=== PATIENT | female | born 1955 | race Caucasian/White ===

== ENCOUNTER 2021-04-07 02:16 | Emergency (ER) | payer MEDICARE, MEDICAID, SELFPAY ==
--- NOTE | ~2021-04-07 | XR_ITS ---
EXAMINATION: XR CHEST CLINICAL INFORMATION: Shortness of breath. Chest pain. COMPARISON: 07/12/2016 TECHNIQUE: 2 views of the chest were obtained. FINDINGS: The patient is rotated to the right. Lung hyperexpansion. No consolidation, edema, or effusion. No pneumothorax. The cardiomediastinal silhouette is within normal limits. No acute osseous abnormality. XR/XR chest 2V IMPRESSION: Hyperexpanded, clear lungs.
[2021-04-07 02:24] VITALS: BP 139/65; BP 176/84; PULSE 80; PULSE 92; RESP 15; TEMP 36; O2SAT 98; BMI 17.2
--- NOTE | 2021-04-07 02:42 | ED_ITS ---
HPI - Anxiety General Chief Complaint: Anxiety Stated Complaint: anxiety Time Seen by Provider: 04/07/21 02:41 Source: patient Mode of arrival: EMS History of Present Illness HPI narrative: 65-year-old female who presents via EMS with complaints of chest tightness and shortness of breath for 1 week with associated nausea and 2 episodes of ?acidy? vomiting with chills denies any fevers, diarrhea, urinary pain/burning/frequency. Related Data Allergies Allergy/AdvReac Type Severity Reaction Status Date / Time No Known Allergies Allergy Unverified 07/31/20 14:46 [No Known Allergies*] Review of Systems Review of Systems: Pertinent positives and negatives as stated in HPI 10 point review of systems is otherwise negative. [facility] Past Medical History Source: nursing notes reviewed Medical History Anxiety COPD (chronic obstructive pulmonary disease) Surgical History No history of previous surgery Social History Social History Alcohol intake: never Smoking Status: Current every day smoker Use of substances other than those prescribed or required for medical reasons: No Advance Directives: No Advance Directives Information Provided: No Physical Exam Vital Signs: Vital Signs: Last Vital Signs Temp 96.8 F 04/07/21 02:24 Pulse 81 04/07/21 06:00 Resp 15 04/07/21 06:00 BP 133/65 04/07/21 06:00 Pulse Ox 98 04/07/21 06:00 Body Mass Index 17.2 VITAL SIGNS: Reviewed. GENERAL: Cachectic, chronically ill, in no acute distress. HEAD: Normocephalic/atraumatic, EYES: PERRLA, EOMI EARS: Ext canals without abnormality NOSE: Nares patent bilateral OROPHARYNX: no oral lesions noted, posterior pharynx clear NECK: Supple, no adenopathy LUNGS: Normal breath sounds. No adventitious sounds or accessory muscle use. SpO2<98> CARDIOVASCULAR: Regular rate and rhythm without noted murmurs, no JVD or lower extremity edema. ABDOMEN: Soft, non-tender, non-distended with bowel sounds. NEUROLOGIC: Alert and oriented x 4. Strength and sensation to light touch were grossly intact x 4. Course Course Course Narrative: This is a 65-year-old female with history and clinical presentation suggestive of costochondritis, anxiety. On review of all investigations there are no acute findings stable COPD without evidence exacerbation. Patient was given all results and findings and discharged to home with follow-up to her primary care provider. MDM - Anxiety Lab Data Result diagrams: 04/07/21 06:13 04/07/21 06:13 Labs: Lab Results 04/07/21 04/07/21 04/07/21 Range/Units 06:13 06:13 06:13 WBC 6.6 (4.8-10.8) X10*3/uL RBC 4.71 (4.20-5.50) X10*6/uL Hgb 13.7 (12.0-16.0) g/dl Hct 40.8 (37-47) % MCV 86.6 (80-98) fL MCH 29.1 (27.0-33.0) pg MCHC 33.6 (31.0-35.0) g/dl RDW 12.0 (11.0-16.0) % Plt Count 229 (160-400) X10*3/uL MPV 10.4 (9.4-12.3) fL Immature Gran % (Auto) 0.5 H (0.0-0.4) % Neut % (Auto) 81.3 H (45-73) % Lymph % (Auto) 13.4 L (20-40) % [place] % (Auto) 4.1 (2-11) % Eos % (Auto) 0.2 (0-4) % Baso % (Auto) 0.5 (0-2) % Lymph # (Auto) 0.9 L (1.2-4.9) X10*3/uL [place] # (Auto) 0.3 (0.1-1.2) X10*3/uL Eos # (Auto) 0.0 (0.0-0.4) X10*3/uL Baso # (Auto) 0.0 (0.0-0.2) X10*3/uL Abs Immat Gran (auto) 0.03 (0.00-0.03) X10*3/uL Absolute Neuts (auto) 5.3 (2.0-8.3) X10*3/uL Absolute Nucleated RBC 0.000 (0.0-0.012) X10*3/uL Nucleated RBC % (auto) 0.0 (0.0-0.2) /100WBC Sodium 136 (135-145) mmol/L Potassium 4.3 (3.3-5.1) mmol/L Chloride 102 (96-108) mmol/L Carbon Dioxide 25 (22-29) mmol/L Anion Gap 13 (12-20) BUN 12 (9-16) mg/dL Creatinine 0.73 (0.5-1.4) mg/dL Estim Creat Clear Calc 53.5 Estimated GFR > 60 Random Glucose 106 (60-115) mg/dL Calcium 9.6 (8.4-10.2) mg/dL Total Bilirubin 0.8 (0.0-1.0) mg/dL AST 11 (5-31) U/L ALT 9 (0-31) U/L Alkaline Phosphatase 78 (39-117) U/L Total Protein 6.5 (6.5-8.0) g/dL Albumin 4.2 (3.5-5.0) g/dL Urine Color Urine Appearance Urine pH (5.0-8.0) Ur Specific [place] (1.005-1.025) Urine Protein (NEG-TRACE) MG/DL Urine Glucose (UA) (NEG) MG/DL Urine Ketones (NEG) MG/DL Urine Blood (NEG) Urine Nitrite (NEG) Ur Leukocyte Esterase (NEG) Urine RBC (0) /HPF Urine WBC (0-4) /HPF Ur Squamous Epith Cells /LPF Amorphous Sediment /LPF Urine Bacteria /LPF Urine Opiates Screen (Not Detect) Ur Barbiturates Screen (Not Detect) Ur Phencyclidine Scrn (Not Detect) Ur Amphetamines Screen (Not Detect) U Benzodiazepines Scrn (Not Detect) Urine Cocaine Screen (Not Detect) U Marijuana (THC) Screen (Not Detect) Ethyl Alcohol < 10 mg/dL 04/07/21 04/07/21 Range/Units 06:35 06:35 WBC (4.8-10.8) X10*3/uL RBC (4.20-5.50) X10*6/uL Hgb (12.0-16.0) g/dl Hct (37-47) % MCV (80-98) fL MCH (27.0-33.0) pg MCHC (31.0-35.0) g/dl RDW (11.0-16.0) % Plt Count (160-400) X10*3/uL MPV (9.4-12.3) fL Immature Gran % (Auto) (0.0-0.4) % Neut % (Auto) (45-73) % Lymph % (Auto) (20-40) % [place] % (Auto) (2-11) % Eos % (Auto) (0-4) % Baso % (Auto) (0-2) % Lymph # (Auto) (1.2-4.9) X10*3/uL [place] # (Auto) (0.1-1.2) X10*3/uL Eos # (Auto) (0.0-0.4) X10*3/uL Baso # (Auto) (0.0-0.2) X10*3/uL Abs Immat Gran (auto) (0.00-0.03) X10*3/uL Absolute Neuts (auto) (2.0-8.3) X10*3/uL Absolute Nucleated RBC (0.0-0.012) X10*3/uL Nucleated RBC % (auto) (0.0-0.2) /100WBC Sodium (135-145) mmol/L Potassium (3.3-5.1) mmol/L Chloride (96-108) mmol/L Carbon Dioxide (22-29) mmol/L Anion Gap (12-20) BUN (9-16) mg/dL Creatinine (0.5-1.4) mg/dL Estim Creat Clear Calc Estimated GFR Random Glucose (60-115) mg/dL Calcium (8.4-10.2) mg/dL Total Bilirubin (0.0-1.0) mg/dL AST (5-31) U/L ALT (0-31) U/L Alkaline Phosphatase (39-117) U/L Total Protein (6.5-8.0) g/dL Albumin (3.5-5.0) g/dL Urine Color YELLOW Urine Appearance HAZY Urine pH 6.0 (5.0-8.0) Ur Specific [place] 1.010 (1.005-1.025) Urine Protein NEG (NEG-TRACE) MG/DL Urine Glucose (UA) NEG (NEG) MG/DL Urine Ketones 5 (NEG) MG/DL Urine Blood TRACE (NEG) Urine Nitrite NEG (NEG) Ur Leukocyte Esterase NEG (NEG) Urine RBC 0-2 (0) /HPF Urine WBC 0 (0-4) /HPF Ur Squamous Epith Cells 2+ /LPF Amorphous Sediment 2+ /LPF Urine Bacteria NONE /LPF Urine Opiates Screen POSITIVE H (Not Detect) Ur Barbiturates Screen Not Detected (Not Detect) Ur Phencyclidine Scrn Not Detected (Not Detect) Ur Amphetamines Screen Not Detected (Not Detect) U Benzodiazepines Scrn Not Detected (Not Detect) Urine Cocaine Screen Not Detected (Not Detect) U Marijuana (THC) Screen Not Detected (Not Detect) Ethyl Alcohol mg/dL Discharge Plan Discharge Clinical Impression: Anxiety reaction Patient Disposition: Home, Self-Care Instructions: Anxiety (ED) Additional Instructions: Please follow-up with your primary care provider in 2-3 days for re-evaluation. Return to the ER for any acute worsening of symptoms. Referrals: Physician,Unknown [Primary Care Provider] - 2 days
[2021-04-07 06:00] VITALS: BP 133/65; PULSE 81; RESP 15; O2SAT 98
[2021-04-07 06:17] LABS: MANUAL DIFF FLAG NO
[2021-04-07 06:20] LABS: Basophils Percent Auto 0.5 % (0-2); Eosinophils Percent Auto 0.2 % (0-4); Hematocrit 40.8 % (37-47); Hemoglobin 13.7 g/dl (12.0-16.0); Imm Gran Abs Auto 0.03 X10*3/uL (0.00-0.03); Imm Gran Pct Auto 0.5 % (0.0-0.4); Lymphocytes Absolute Auto 0.9 X10*3/uL (1.2-4.9); Lymphocytes Percent Auto 13.4 % (20-40); Mean Corpuscular HGB Conc 33.6 g/dl (31.0-35.0); Mean Corpuscular Hemoglobin 29.1 pg (27.0-33.0); Mean Corpuscular Volume 86.6 fL (80-98); Mean Platelet Volume 10.4 fL (9.4-12.3); Monocytes Absolute Auto 0.3 X10*3/uL (0.1-1.2); Monocytes Percent Auto 4.1 % (2-11); Neutrophils Absolute Auto 5.3 X10*3/uL (2.0-8.3); Neutrophils Percent Auto 81.3 % (45-73); Platelet Count 229 X10*3/uL (160-400); Red Blood Count 4.71 X10*6/uL (4.20-5.50); White Blood Count 6.6 X10*3/uL (4.8-10.8)
[2021-04-07 06:39] LABS: Ethanol < 10 mg/dL
[2021-04-07 06:43] LABS: Appearance Urine HAZY; Color Urine YELLOW; Glucose Urine UA NEG (NEG); Leukocyte Esterase Urine NEG (NEG); Nitrite Urine NEG (NEG); Urine Blood TRACE (NEG); Urine Ketones 5 MG/DL (NEG); Urine Protein NEG (NEG-TRACE)
[2021-04-07 06:43] LABS: Alanine Aminotransferase 9 U/L (0-31); Albumin Level 4.2 g/dL (3.5-5.0); Alkaline Phosphatase 78 U/L (39-117); Anion Gap 13 (12-20); Aspartate Amino Transferase 11 U/L (5-31); Bilirubin Total 0.8 mg/dL (0.0-1.0); Blood Urea Nitrogen 12 mg/dL (9-16); Calcium 9.6 mg/dL (8.4-10.2); Carbon Dioxide 25 mmol/L (22-29); Chloride 102 mmol/L (96-108); Creatinine Clr Calc Pharmacy 53.5; Estimated Glomerular Filt Rate > 60; Glucose Random 106 mg/dL (60-115); Potassium 4.3 mmol/L (3.3-5.1); Sodium 136 mmol/L (135-145); Total Protein 6.5 g/dL (6.5-8.0)
[2021-04-07 06:52] LABS: Amorphous Sediment Urine 2+ /LPF; RBC Urine 0-2 /HPF (0); Squamous Epithelial Cell Urine 2+ /LPF; WBC Urine 0 /HPF (0-4)
[2021-04-07 06:53] LABS: Amphetamine Screen Urine Not Detected (Not Detect); Barbiturates, Urine Not Detected (Not Detect); Benzodiazepines Screen Urine Not Detected (Not Detect); Cannabinoid Screen Urine Not Detected (Not Detect); Cocaine Screen Urine Not Detected (Not Detect); Opiate Screen Urine POSITIVE (Not Detect); Phencyclidine Screen Urine Not Detected (Not Detect)
[2021-04-07] MEDS: hydrOXYzine HCL 25 MG TABLET PO (07:12)
== END 2021-04-07 07:43 | disposition home or self-care (01) ==
PROVIDERS: Emergency Provider Student in an Organized Health Care Education/Training Program
DX: F41.1 Generalized anxiety disorder (principal); F17.200 Nicotine dependence, unspecified, uncomplicated
CPT/HCPCS: 36415; 71046; 80053; 80307; 80320; 81001; 85025; 99284

== ENCOUNTER 2021-09-17 18:13 | Emergency (ER) | payer MEDICARE, MEDICAID, SELFPAY ==
[2021-09-17 18:22] VITALS: BP 148/69; PULSE 70; RESP 16; TEMP 36.9; O2SAT 97
[2021-09-17 18:29] VITALS: BMI 16.9
--- NOTE | 2021-09-17 18:36 | ED_ITS ---
HPI - Nausea/Vomiting/Diarrhea General Chief complaint: Nausea/Vomiting/Diarrhea Stated complaint: nausea vomiting Time Seen by Provider: 09/17/21 18:27 Source: patient Mode of arrival: ambulatory Limitations: no limitations History of Present Illness HPI Narrative: Patient history of anxiety on Klonopin for long time says that she does not have any chronic from last 3 days although she filled 30 tablets on 09/07 feels very anxious nauseated vomiting several times since yesterday no abdominal pain no diarrhea no fever no chills Related Data Allergies Allergy/AdvReac Type Severity Reaction Status Date / Time No Known Allergies Allergy Unverified 07/31/20 14:46 [No Known Allergies*] Review of Systems Review of Systems: Yes all other systems are reviewed and are negative [facility] Past Medical History Medical History Anxiety COPD (chronic obstructive pulmonary disease) Surgical History No history of previous surgery Social History Social History Alcohol intake: never Patient Tobacco Use Status: Current everyday Tobacco user Use of substances other than those prescribed or required for medical reasons: No Advance Directives: No Advance Directives Information Provided: Yes Physical Exam Vital Signs: Vital Signs: Last Vital Signs Temp 98.4 F 09/17/21 19:05 Pulse 65 09/17/21 19:05 Resp 16 09/17/21 19:05 BP 140/71 H 09/17/21 19:05 Pulse Ox 97 09/17/21 19:05 Body Mass Index 16.9 Appearance: Alert. Oriented X3. No acute distress. Anxious Eyes: PERRLA, No Nystagmus ENT: Pharynx normal. Oral Mucosa moist Neck: Normal inspection. Neck supple. CVS: Normal heart rate and rhythm. Pulses normal. Respiratory: No respiratory distress. Equal air entry bilateral, no wheezing/rales/rhonchi Abdomen: Soft and nontender. Bowel sounds are present, no mass palpable, no CVA tenderness Skin: Skin warm and dry. Normal skin color. Normal skin turgor. Extremities: No lower extremity edema. No calf tenderness Neuro: Oriented X 3. No motor deficit. MDM - Nausea/Vomiting/Diarrhea MDM Narrative Medical decision making narrative: Patient feeling better after Ativan taking p.o. fluids will discharge patient home patient should have Klonopin at home but she says she did not pick up man the prescription advised to follow with PCP and go to pharmacy to confirm about the medication Discharge Plan Discharge Clinical Impression: Anxiety Patient Disposition: Home, Self-Care Instructions: Anxiety (ED) Additional Instructions: Continue taking your medications Follow-up with your psychiatrist Drink plenty of fluids
[2021-09-17] MEDS: LORazepam 1 MG TABLET PO (18:47)
[2021-09-17 19:05] VITALS: BP 140/71; PULSE 65; RESP 16; TEMP 36.9; O2SAT 97
--- NOTE | 2021-09-17 19:44 | PC.NURSE ---
Pt alert and oriented x4, calm and cooperative. Pt denies pain, denies N/V, denies headache. Pt states she is ready for discharge. No IV in place, vitals stable. Pt ambulating without issues. Pt educated on dc and waiting for ride at this time. Will continue to monitor.
== END 2021-09-17 20:10 | disposition home or self-care (01) ==
PROVIDERS: Emergency Provider Internal Medicine
DX: F41.9 Anxiety disorder, unspecified (principal); J44.9 Chronic obstructive pulmonary disease, unspecified; Z79.899 Other long term (current) drug therapy
CPT/HCPCS: 99283; 99284

== ENCOUNTER 2021-11-12 17:28 | Emergency (ER) | payer MEDICARE, MEDICAID, SELFPAY ==
--- NOTE | ~2021-11-12 | XR_ITS ---
EXAMINATION: XR CHEST CLINICAL INFORMATION: Chest pressure COMPARISON: Chest x-ray 04/07/2021 TECHNIQUE: Frontal portable view of the chest was obtained. 08/13/2021 FINDINGS: Patient rotated to left. Hyperexpansion of lungs. No acute airspace disease. No pleural effusion or pneumothorax. Heart size is normal. No pulmonary vascular congestion. XR/XR chest 1V IMPRESSION: No acute abnormality of the chest.
[2021-11-12 17:40] VITALS: BP 149/77; PULSE 89; RESP 16; O2SAT 96
[2021-11-12 17:43] VITALS: BP 138/85; PULSE 104; PULSE 85; RESP 13; TEMP 36.2; O2SAT 100; O2SAT 97; BMI 19.7
--- NOTE | 2021-11-12 17:51 | ED_ITS ---
HPI - General Adult General Chief complaint: General Medical Stated complaint: ABD PAIN,SOB,? WITHDRAWAL OF BENZOS,-VACC PER EMS Source: patient and EMS Mode of arrival: EMS Limitations: no limitations History of Present Illness HPI narrative: 66-year-old female presents via EMS for anxiety, abdominal pain, and withdrawal from Klonopin. Onset (ago): day(s) (3) Severity: moderate Severity scale (1-10): 7 Quality: aching Pain Consistency: constant Relieving factors: none Associated symptoms: chest pain, malaise and other (Anxiety) Treatments prior to arrival: none Related Data Allergies Allergy/AdvReac Type Severity Reaction Status Date / Time No Known Allergies Allergy Unverified 07/31/20 14:46 [No Known Allergies*] Review of Systems Review of Systems: Constitutional: No Fever, No Chills ENT/Mouth: No sore throat, No Rhinorrhea Eyes: No Eye Pain, No Swelling, No Redness Cardiovascular: Positive Chest Pain, No SOB Respiratory: No Cough, No Sputum Gastrointestinal: No Nausea, No Vomiting, No Diarrhea, No abdominal Pain Genitourinary: No Dysuria, No Hematuria Musculoskeletal: No joint pain, No Myalgias, No Joint Swelling Skin: No Skin Lesions, No rash Neuro: No Weakness, No Numbness, No Loss of Consciousness, No Dizziness, No Headache Psych: Positive Anxiety, No Depression, No SI/HI/AH/VH Heme/Lymph: No Bruising, No Bleeding,No Lymphadenopathy Endocrine: No Polyuria, No Polydipsia Yes all other systems are reviewed and are negative [facility] Past Medical History Attestation statement: The following information was validated with the patient. Source: old records reviewed Medical History Anxiety COPD (chronic obstructive pulmonary disease) Surgical History No history of previous surgery Social History Social History Alcohol intake: never Patient Tobacco Use Status: Current everyday Tobacco user Advance Directives: No Advance Directives Information Provided: No Physical Exam Vital Signs: Vital Signs: Last Vital Signs Temp 97.9 F 11/12/21 18:28 Pulse 84 11/12/21 20:23 Resp 12 11/12/21 20:23 BP 140/88 H 11/12/21 22:38 Pulse Ox 99 11/12/21 18:28 BMI result Body Mass Index 19.7 Appearance: Alert. Oriented X3. Anxious. Thin. Eyes: Pupils equal, round and reactive to light. Sclera nonicteric. ENT: Pharynx normal. Neck: Normal inspection. Neck supple. CVS: Normal heart rate and rhythm. Pulses normal. Respiratory: No respiratory distress. Breath sounds normal. Abdomen: Soft and nontender. Skin: Skin warm and dry. Normal skin color. Normal skin turgor. Extremities: No lower extremity edema. Moves all extremities against resistance. Neuro: No motor deficit. No sensory deficit. Cranial nerves 2-12 intact. Course Course Course Narrative: 5:57 p.m. 66-year-old female presents via EMS for Klonopin withdrawal. States that she takes 1 mg in the morning and 0.5 in the evening. She does not recall the name of the physician that prescribes her medications. States that her son is very angry at her and that gives her anxiety. At this time I will have Case Management look into her living situation, and possibly assist with medication administration. Patient does run out of medications on regular basis, I do not feel that she is abusing, I feel that she is not capable of remembering when she took her medication or able to manage her medications on her own. 7:04 p.m. discussion with case management, plan is for investigation into family situation with possible plan for VNA services to assist with medication. Patient does not have an established primary care at this time, has been a psychiatric patient at this facility dating back to 2017. Was discontinued by psychiatric services for not having working phone. Patient would like to be discharged home. She denies suicidal or homicidal ideation. Does have her son at home that can care for her. Patient discharged home with the understanding that she must follow-up with the prescriber the prescribed Klonopin. She does understand that we will not be providing her prescription for this medication Medical Decision Making Differential Diagnosis Differential Diagnosis: Withdrawal Medical Records Medical records reviewed: Yes I reviewed the patient's medical records. Lab Data Lab results reviewed: Yes I reviewed the patient's lab results. Result diagrams: 11/12/21 18:16 11/12/21 18:16 Labs: Lab Results 11/12/21 11/12/2121 Range/Units 18:16 18:16 18:16 WBC 6.7 (4.8-10.8) X10*3/uL RBC 4.45 (4.20-5.50) X10*6/uL Hgb 13.1 (12.0-16.0) g/dl Hct 39.6 (37.0-47.0) % MCV 89.0 (80.0-98.0) fL MCH 29.4 (27.0-33.0) pg MCHC 33.1 (31.0-35.0) g/dl RDW 12.0 (11.0-16.0) % Plt Count 239 (160-400) X10*3/uL MPV 10.4 (9.4-12.3) fL Immature Gran % (Auto) 0.3 (0.0-0.4) % Neut % (Auto) 83.0 H (45-73) % Lymph % (Auto) 11.8 L (20-40) % [place] % (Auto) 4.6 (2-11) % Eos % (Auto) 0.0 (0-4) % Baso % (Auto) 0.3 (0-2) % Lymph # (Auto) 0.8 L (1.2-4.9) X10*3/uL [place] # (Auto) 0.3 (0.1-1.2) X10*3/uL Eos # (Auto) 0.0 (0.0-0.4) X10*3/uL Baso # (Auto) 0.0 (0.0-0.2) X10*3/uL Abs Immat Gran (auto) 0.02 (0.00-0.03) X10*3/uL Absolute Neuts (auto) 5.6 (2.0-8.3) x10*3/uL Absolute Nucleated RBC 0.000 (0.0-0.012) X10*3/uL Nucleated RBC % (auto) 0.0 (0.0-0.2) /100WBC Sodium 141 (135-145) mmol/L Potassium 3.3 D (3.3-5.1) mmol/L Chloride 104 (96-108) mmol/L Carbon Dioxide 29 (22-29) mmol/L Anion Gap 11 L (12-20) BUN 9 (9-16) mg/dL Creatinine 0.81 (0.5-1.4) mg/dL Estim Creat Clear Calc 54.7 Estimated GFR > 60 Random Glucose 141 H (60-115) mg/dL Calcium 9.4 (8.4-10.2) mg/dL Troponin I High Sens 4.9 (<3.5-17.0) ng/L Urine Color Urine Appearance Urine pH (5.0-8.0) Ur Specific [place] (1.005-1.025) Urine Protein (NEG-TRACE) MG/DL Urine Glucose (UA) (NEG) MG/DL Urine Ketones (NEG) MG/DL Urine Blood (NEG) Urine Nitrite (NEG) Ur Leukocyte Esterase (NEG) Urine RBC (0) /HPF Urine WBC (0-4) /HPF Ur Squamous Epith Cells /LPF Urine Bacteria /LPF 11/12/ Range/Units 22:54 WBC (4.8-10.8) X10*3/uL RBC (4.20-5.50) X10*6/uL Hgb (12.0-16.0) g/dl Hct (37.0-47.0) % MCV (80.0-98.0) fL MCH (27.0-33.0) pg MCHC (31.0-35.0) g/dl RDW (11.0-16.0) % Plt Count (160-400) X10*3/uL MPV (9.4-12.3) fL Immature Gran % (Auto) (0.0-0.4) % Neut % (Auto) (45-73) % Lymph % (Auto) (20-40) % [place] % (Auto) (2-11) % Eos % (Auto) (0-4) % Baso % (Auto) (0-2) % Lymph # (Auto) (1.2-4.9) X10*3/uL [place] # (Auto) (0.1-1.2) X10*3/uL Eos # (Auto) (0.0-0.4) X10*3/uL Baso # (Auto) (0.0-0.2) X10*3/uL Abs Immat Gran (auto) (0.00-0.03) X10*3/uL Absolute Neuts (auto) (2.0-8.3) x10*3/uL Absolute Nucleated RBC (0.0-0.012) X10*3/uL Nucleated RBC % (auto) (0.0-0.2) /100WBC Sodium (135-145) mmol/L Potassium (3.3-5.1) mmol/L Chloride (96-108) mmol/L Carbon Dioxide (22-29) mmol/L Anion Gap (12-20) BUN (9-16) mg/dL Creatinine (0.5-1.4) mg/dL Estim Creat Clear Calc Estimated GFR Random Glucose (60-115) mg/dL Calcium (8.4-10.2) mg/dL Troponin I High Sens (<3.5-17.0) ng/L Urine Color YELLOW Urine Appearance CLEAR Urine pH 6.5 (5.0-8.0) Ur Specific [place] 1.010 (1.005-1.025) Urine Protein NEG (NEG-TRACE) MG/DL Urine Glucose (UA) NEG (NEG) MG/DL Urine Ketones 5 (NEG) MG/DL Urine Blood TRACE (NEG) Urine Nitrite NEG (NEG) Ur Leukocyte Esterase NEG (NEG) Urine RBC 0-2 (0) /HPF Urine WBC 0 (0-4) /HPF Ur Squamous Epith Cells 1+ /LPF Urine Bacteria 1+ /LPF Imaging Data Chest x-ray: Attestation: I personally reviewed and interpreted this imaging study as follows: ECG Data Attestation: I personally reviewed and interpreted this ECG as follows: Prior ECG tracings: available for review Interpretation: Vent. Rate : 077 BPM ? ? Atrial Rate : 077 BPM ?? P-R Int : 158 ms? QRS Dur : 076 ms ? ? QT Int : 394 ms ? ? ? P-R-T Axes : 079 073 074 degrees ?? QTc Int : 445 ms ? Normal sinus rhythm Normal ECG When compared with ECG of 12-JUL-2016 15:46, Premature ventricular complexes are no longer Presen Discharge Plan Discharge Clinical Impression: Benzodiazepine withdrawal Patient Disposition: Home, Self-Care Instructions: Benzodiazepine Abuse (ED) Additional Instructions: You presented to the emergency department for benzo diazepam withdrawal, and loss of medication. We cannot refill your medication. Please follow-up with primary care provider and the provider that prescribed this medication to you. Thank you for choosing this emergency department for evaluation. Please follow-up with primary care physician as needed. Return to the emergency department for any new, concerning, or worsening symptoms. Referrals: [facility] [Provider Group] - 2 days Interventions: ED Discharge Assessment Last Done: 11/12/21 23:04 Discharge Date/Time: 11/12/21 23:05
--- NOTE | 2021-11-12 17:57 | ECG_ITS ---
Test Reason : adb pain Blood Pressure : / mmHG Vent. Rate : 077 BPM Atrial Rate : 077 BPM P-R Int : 158 ms QRS Dur : 076 ms QT Int : 394 ms P-R-T Axes : 079 073 074 degrees QTc Int : 445 ms Normal sinus rhythm Normal ECG When compared with ECG of 12-JUL-2016 15:46, Premature ventricular complexes are no longer Present Referred By: Gavi Marinelli Electronically Signed By:Brandon Meredith
[2021-11-12 18:22] LABS: MANUAL DIFF FLAG NO
[2021-11-12 18:24] LABS: Basophils Percent Auto 0.3 % (0-2); Hematocrit 39.6 % (37.0-47.0); Hemoglobin 13.1 g/dl (12.0-16.0); Imm Gran Abs Auto 0.02 X10*3/uL (0.00-0.03); Imm Gran Pct Auto 0.3 % (0.0-0.4); Lymphocytes Absolute Auto 0.8 X10*3/uL (1.2-4.9); Lymphocytes Percent Auto 11.8 % (20-40); Mean Corpuscular HGB Conc 33.1 g/dl (31.0-35.0); Mean Corpuscular Hemoglobin 29.4 pg (27.0-33.0); Mean Platelet Volume 10.4 fL (9.4-12.3); Monocytes Absolute Auto 0.3 X10*3/uL (0.1-1.2); Monocytes Percent Auto 4.6 % (2-11); Neutrophils Absolute Auto 5.6 x10*3/uL (2.0-8.3); Platelet Count 239 X10*3/uL (160-400); Red Blood Count 4.45 X10*6/uL (4.20-5.50); White Blood Count 6.7 X10*3/uL (4.8-10.8)
[2021-11-12 18:28] VITALS: BP 140/86; PULSE 83; RESP 12; TEMP 36.6; O2SAT 99
[2021-11-12] MEDS: clonazePAM 1 MG TABLET PO (18:32)
[2021-11-12 18:36] LABS: Anion Gap 11 (12-20); Blood Urea Nitrogen 9 mg/dL (9-16); Calcium 9.4 mg/dL (8.4-10.2); Carbon Dioxide 29 mmol/L (22-29); Chloride 104 mmol/L (96-108); Creatinine Clr Calc Pharmacy 54.7; Estimated Glomerular Filt Rate > 60; Glucose Random 141 mg/dL (60-115); Potassium 3.3 mmol/L (3.3-5.1); Sodium 141 mmol/L (135-145)
[2021-11-12 18:43] LABS: Troponin-I High Sensitivity 4.9 ng/L (<3.5-17.0)
--- NOTE | 2021-11-12 19:14 | MHC.CM.ED ---
Addendum entered by Beba Barragan 11/12/21 20:27: Telephone numbers for son incorrect. New telephone number for Lino Luevano ([phone]) Per patient. CM called and left a message to return call. Original Note: CM met with patient at request of Gavi PHILLIPS with workup pending. Pt is A&Ox3, but is a poor historian. States she hasn't seen her PCP in over a year. CM did contact [facility] pharmacy on [address] in [place]. Per pharmacy, pt had script picked up on 11/02 for Klonopin. Prescribed by Oni Oden. Pt also picked up script for Simethicone on 10/12. Prescribed by Nasima Calero. Pt states she goes to [facility] and needs to make an appointment. Pt states she lives with her 2 sons. No HCP on file. Education provided, pt declines at this time. Pt states she has no DME and uses no services. States her son's take to shopping and provides transportation when needed. Son, Lino is contact. CM attempted to reach him, no ability to leave message. Pt states she has moved to [address] [place] [address] in [place]. Pt tells CM that she has not received any Covid vaccinations. Gavi is concerned that patient may need VNA help with medication management at home. CM will continue to follow for d/c needs.
[2021-11-12 20:23] VITALS: BP 123/78; PULSE 84; RESP 12
--- NOTE | 2021-11-12 21:11 | MHC.CM.ED ---
Pt tells CM that she does not have any more Klonopin and thinks that she may have lost them. Pt picked up Klonopin on 11/02/2021. Pt tells CM that Dr. Viktoria Calero is her PCP and that Oni Oden is her psychiatrist. Pt tells CM that her son will pick her up when she is discharged. Pt aware that we need a urine sample to test for infection. Awaiting return call from son, Lino. Gavi OPERATIONAL RISK MANAGER aware of above conversation. CM to follow for d/c needs.
[2021-11-12 22:38] VITALS: BP 140/88
[2021-11-12 22:59] LABS: Appearance Urine CLEAR; Color Urine YELLOW; Glucose Urine UA NEG (NEG); Leukocyte Esterase Urine NEG (NEG); Nitrite Urine NEG (NEG); PH 6.5 (5.0-8.0); UACC Culture Trigger NO; Urine Blood TRACE (NEG); Urine Ketones 5 MG/DL (NEG); Urine Protein NEG (NEG-TRACE)
[2021-11-12 23:05] LABS: WBC Urine 0 /HPF (0-4)
[2021-11-12 23:06] LABS: Bacteria Urine 1+ /LPF; RBC Urine 0-2 /HPF (0); Squamous Epithelial Cell Urine 1+ /LPF
--- NOTE | 2021-11-12 23:08 | MHC.CM.ED ---
Pt d/c home by provider. Pt willing to go home. Will F/U with psychiatrist/PCP. Pt states she called her son and he will pick her up.
== END 2021-11-12 23:05 | disposition home or self-care (01) ==
PROVIDERS: Nurse Practitioner Family; Emergency Provider Emergency Medicine Emergency Medical Services
DX: F15.13 Other stimulant abuse with withdrawal (principal); R07.9 Chest pain, unspecified; F41.1 Generalized anxiety disorder; F43.0 Acute stress reaction; F17.200 Nicotine dependence, unspecified, uncomplicated; Z71.6 Tobacco abuse counseling; Z79.899 Other long term (current) drug therapy
CPT/HCPCS: 36415; 71045; 80048; 81001; 84484; 85025; 93005; 99284

== ENCOUNTER 2021-11-16 23:08 | Emergency (ER) | payer MEDICARE, MEDICAID, SELFPAY ==
[2021-11-16 23:27] VITALS: PULSE 106
[2021-11-16 23:34] VITALS: BP 141/81; PULSE 91; RESP 20; O2SAT 97; BMI 15.4
[2021-11-16 23:37] VITALS: TEMP 36.6
[2021-11-16 23:48] LABS: MANUAL DIFF FLAG NO
[2021-11-16 23:53] LABS: Basophils Percent Auto 0.5 % (0-2); Eosinophils Percent Auto 0.1 % (0-4); Hematocrit 40.7 % (37.0-47.0); Hemoglobin 13.5 g/dl (12.0-16.0); Imm Gran Abs Auto 0.02 X10*3/uL (0.00-0.03); Imm Gran Pct Auto 0.3 % (0.0-0.4); Lymphocytes Absolute Auto 1.5 X10*3/uL (1.2-4.9); Lymphocytes Percent Auto 19.9 % (20-40); Mean Corpuscular HGB Conc 33.2 g/dl (31.0-35.0); Mean Corpuscular Hemoglobin 29.5 pg (27.0-33.0); Mean Corpuscular Volume 89.1 fL (80.0-98.0); Mean Platelet Volume 10.6 fL (9.4-12.3); Monocytes Absolute Auto 0.4 X10*3/uL (0.1-1.2); Monocytes Percent Auto 4.9 % (2-11); Neutrophils Absolute Auto 5.4 x10*3/uL (2.0-8.3); Neutrophils Percent Auto 74.3 % (45-73); Platelet Count 267 X10*3/uL (160-400); Red Blood Count 4.57 X10*6/uL (4.20-5.50); Red Cell Distribution Width 12.4 % (11.0-16.0); White Blood Count 7.3 X10*3/uL (4.8-10.8)
[2021-11-17 00:14] LABS: Alanine Aminotransferase 11 U/L (0-31); Albumin Level 4.4 g/dL (3.5-5.0); Alkaline Phosphatase 87 U/L (39-117); Anion Gap 14 (12-20); Aspartate Amino Transferase 15 U/L (5-31); Bilirubin Total 0.3 mg/dL (0.0-1.0); Blood Urea Nitrogen 16 mg/dL (9-16); Calcium 10.5 mg/dL (8.4-10.2); Carbon Dioxide 31 mmol/L (22-29); Chloride 102 mmol/L (96-108); Creatinine Clr Calc Pharmacy 44.5; Estimated Glomerular Filt Rate > 60; Glucose Random 112 mg/dL (60-115); Lipase 8 U/L (8-78); Potassium 4.6 mmol/L (3.3-5.1); Sodium 142 mmol/L (135-145)
--- NOTE | 2021-11-17 03:04 | PC.NURSE ---
Patient appears to be having issues with benzos withdrawel. Patient states she ran out of klonopin and needs some
[2021-11-17 03:05] VITALS: BP 141/81; PULSE 91; RESP 20; TEMP 36.6; O2SAT 97
[2021-11-17 04:00] VITALS: BP 132/78; PULSE 84; RESP 15; O2SAT 97
--- NOTE | 2021-11-17 04:29 | ED_ITS ---
HPI - Abdominal Pain General Chief Complaint: Abdominal Pain Stated Complaint: STOMACH PAIN Time Seen by Provider: 11/17/21 04:25 Source: patient Mode of arrival: ambulatory Limitations: no limitations History of Present Illness HPI narrative: Patient comes emergency room complaining of feeling jittery, shaky, abdominal cramping. Patient states that she ran out of Klonopin 2 days ago. Patient is supposed to get her new prescription tomorrow. Patient states that she misplaced her medication bottle. Patient denies any vomiting, no diarrhea. Complaining of feeling very anxious. Patient denies chest pain, no shortness of breath. Related Data Previous Rx's Medication Instructions Recorded clonazepam 0.5 mg tablet (Klonopin) 0.5 mg PO BID #4 tab 11/17/21 Allergies Allergy/AdvReac Type Severity Reaction Status Date / Time No Known Allergies Allergy Unverified 07/31/20 14:46 [No Known Allergies*] Review of Systems Review of Systems Constitutional : No Weight loss, No Fever, No Chills, No Night Sweats, No Fatigue, No Malaise, complaining of withdrawing of benzos ENT/Mouth : No Hearing loss, No Ear Pain, No Nasal Congestion, No Sinus Pain, No Hoarseness, No sore throat, No Rhinorrhea, No Swallowing Difficulty Eyes: No Eye Pain, No Swelling, No Redness, No Foreign Body, No Discharge, No Vision Changes Cardiovascular : No Chest Pain, No SOB, No Dyspnea on Exertion, No Orthopnea, No Edema, No Palpitations Respiratory : No Cough, No Sputum, No Wheezing, No Smoke Exposure, No Dyspnea Gastrointestinal : No Nausea, No Vomiting, No Diarrhea, No Constipation, complaining of mild abdominal cramping, No Hematochezia, No Melena Genitourinary : no irregular bleeding, No Dysuria, No Urinary Frequency, No Hematuria, No Urinary Incontinence, No Urgency, No Flank Pain, No Urinary Flow Changes, No Hesitancy Musculoskeletal : No joint pain, No Myalgias, No Joint Swelling Skin : No Skin Lesions, No rash Neuro : No Weakness, No Numbness, No Paresthesias, No Loss of Consciousness, No Dizziness, No Headache Psych : No Anxiety/Panic, No Depression, No SI/HI/AH/VH, No Social Issues, Heme/Lymph: No Bruising, No Bleeding,No Lymphadenopathy Endocrine : No Polyuria, No Polydipsia, No Temperature Intolerance Physical Exam Vital Signs: Vital Signs: Last Vital Signs Temp 97.9 F 11/17/21 03:05 Pulse 91 11/17/21 03:05 Resp 20 11/17/21 03:05 BP 141/81 H 11/17/21 03:05 Pulse Ox 97 11/17/21 03:05 BMI result Body Mass Index 15.4 Const: Other: Appearance: Alert. Oriented X3. Very anxious, jittery Eyes: Pupils equal, round and reactive to light. ENT: Pharynx normal. Neck: Normal inspection. Neck supple. No lymph nodes noted. No crepitus CVS: Normal heart rate and rhythm. Pulses normal. Normal S1 and S2 Respiratory: No respiratory distress. Breath sounds normal. No Wheezing. No rales Abdomen: Soft and nontender. No rigidity. No distention. Skin: Skin warm and dry. Normal skin color. Normal skin turgor. Extremities: No lower extremity edema. No lower extremity edema. No Lacerations. No Rash Neuro: Oriented X 3. No motor deficit. No sensory deficit. Moving all extermities. No slurred speech. Course Course Course Narrative: I discussed the labs with the patient, patient is likely withdrawing from benzodiazepines. Patient was given 1 dose of Klonopin in the emergency room. Patient states that by tomorrow she will have her new prescription available to her. Patient has no neurological findings other than feeling a bit jittery, no seizures. Patient was medicated in the emergency room. Patient denies using any alcohol or any drugs MDM - Abdominal Pain Lab Data Result diagrams: 11/16/21 23:42 11/16/21 23:42 Labs: Lab Results 11/16/21 11/16/21 Range/Units 23:42 23:42 WBC 7.3 (4.8-10.8) X10*3/uL RBC 4.57 (4.20-5.50) X10*6/uL Hgb 13.5 (12.0-16.0) g/dl Hct 40.7 (37.0-47.0) % MCV 89.1 (80.0-98.0) fL MCH 29.5 (27.0-33.0) pg MCHC 33.2 (31.0-35.0) g/dl RDW 12.4 (11.0-16.0) % Plt Count 267 (160-400) X10*3/uL MPV 10.6 (9.4-12.3) fL Immature Gran % (Auto) 0.3 (0.0-0.4) % Neut % (Auto) 74.3 H (45-73) % Lymph % (Auto) 19.9 L (20-40) % Buchanan % (Auto) 4.9 (2-11) % Eos % (Auto) 0.1 (0-4) % Baso % (Auto) 0.5 (0-2) % Lymph # (Auto) 1.5 (1.2-4.9) X10*3/uL [place]anan # (Auto) 0.4 (0.1-1.2) X10*3/uL Eos # (Auto) 0.0 (0.0-0.4) X10*3/uL Baso # (Auto) 0.0 (0.0-0.2) X10*3/uL Abs Immat Gran (auto) 0.02 (0.00-0.03) X10*3/uL Absolute Neuts (auto) 5.4 (2.0-8.3) x10*3/uL Absolute Nucleated RBC 0.000 (0.0-0.012) X10*3/uL Nucleated RBC % (auto) 0.0 (0.0-0.2) /100WBC Sodium 142 (135-145) mmol/L Potassium 4.6 D (3.3-5.1) mmol/L Chloride 102 (96-108) mmol/L Carbon Dioxide 31 H (22-29) mmol/L Anion Gap 14 (12-20) BUN 16 D (9-16) mg/dL Creatinine 0.78 (0.5-1.4) mg/dL Estim Creat Clear Calc 44.5 Estimated GFR > 60 Random Glucose 112 (60-115) mg/dL Calcium 10.5 H D (8.4-10.2) mg/dL Total Bilirubin 0.3 (0.0-1.0) mg/dL AST 15 (5-31) U/L ALT 11 (0-31) U/L Alkaline Phosphatase 87 (39-117) U/L Total Protein 7.0 (6.5-8.0) g/dL Albumin 4.4 (3.5-5.0) g/dL Lipase 8 (8-78) U/L Discharge Plan Discharge Clinical Impression: Benzodiazepine withdrawal Qualifiers: Complication of substance-induced condition: uncomplicated Qualified Code(s): F13.230 - Sedative, hypnotic or anxiolytic dependence with withdrawal, uncomplicated Patient Disposition: Home, Self-Care Additional Instructions: Please follow-up with your primary care physician tomorrow. If you have any worsening or new symptoms, please return to the emergency room or call 911 Prescriptions: New clonazepam [Klonopin] 0.5 mg tablet 0.5 mg PO BID Qty: 4 RF: 0 PMFSH Past Medical History Medical History Anxiety COPD (chronic obstructive pulmonary disease) Surgical History No history of previous surgery Social History Social History Alcohol intake: unknown Patient Tobacco Use Status: Current everyday Tobacco user Use of substances other than those prescribed or required for medical reasons: No Substance Use Type: Sedatives Substance Use Frequency: Chronic Longstanding Last Used Substance: Unknown Advance Directives: No Advance Directives Information Provided: Yes
[2021-11-17] MEDS: clonazePAM 1 MG TABLET PO (04:50)
== END 2021-11-17 04:54 | disposition home or self-care (01) ==
PROVIDERS: Emergency Provider Emergency Medicine
DX: F13.230 Sedative, hypnotic or anxiolytic dependence with withdrawal, uncomplicated (principal); R10.9 Unspecified abdominal pain; F17.200 Nicotine dependence, unspecified, uncomplicated
CPT/HCPCS: 36415; 80053; 83690; 85025; 99283; 99284

== ENCOUNTER 2021-11-18 17:49 | Emergency (ER) | payer MEDICARE, MEDICAID, SELFPAY ==
--- NOTE | 2021-11-18 | ECG_ITS ---
Test Reason : chest pain Blood Pressure : / mmHG Vent. Rate : 080 BPM Atrial Rate : 080 BPM P-R Int : 128 ms QRS Dur : 066 ms QT Int : 384 ms P-R-T Axes : 043 059 071 degrees QTc Int : 442 ms Sinus rhythm with occasional Premature ventricular complexes Otherwise normal ECG When compared with ECG of 12-NOV-2021 18:32, Premature ventricular complexes are now Present Referred By: Generic ED Physician Electronically Signed By:AKASH LEROY MD
[2021-11-18 19:16] VITALS: BP 151/85; PULSE 95; RESP 20; TEMP 36.6; O2SAT 96; BMI 15.7
[2021-11-18 20:47] LABS: MANUAL DIFF FLAG NO
[2021-11-18 20:51] LABS: Basophils Absolute Auto 0.1 X10*3/uL (0.0-0.2); Basophils Percent Auto 0.5 % (0-2); Eosinophils Percent Auto 0.2 % (0-4); Hemoglobin 12.2 g/dl (12.0-16.0); Imm Gran Abs Auto 0.02 X10*3/uL (0.00-0.03); Imm Gran Pct Auto 0.2 % (0.0-0.4); Lymphocytes Absolute Auto 1.6 X10*3/uL (1.2-4.9); Lymphocytes Percent Auto 16.5 % (20-40); Mean Corpuscular Hemoglobin 30.1 pg (27.0-33.0); Mean Corpuscular Volume 91.4 fL (80.0-98.0); Mean Platelet Volume 10.6 fL (9.4-12.3); Monocytes Absolute Auto 0.4 X10*3/uL (0.1-1.2); Monocytes Percent Auto 4.6 % (2-11); Neutrophils Absolute Auto 7.4 x10*3/uL (2.0-8.3); Platelet Count 250 X10*3/uL (160-400); Red Blood Count 4.05 X10*6/uL (4.20-5.50); Red Cell Distribution Width 12.5 % (11.0-16.0); White Blood Count 9.4 X10*3/uL (4.8-10.8)
[2021-11-18 21:02] LABS: Alanine Aminotransferase 11 U/L (0-31); Albumin Level 4.1 g/dL (3.5-5.0); Alkaline Phosphatase 83 U/L (39-117); Anion Gap 11 (12-20); Aspartate Amino Transferase 14 U/L (5-31); Bilirubin Total 0.2 mg/dL (0.0-1.0); Blood Urea Nitrogen 15 mg/dL (9-16); Calcium 9.4 mg/dL (8.4-10.2); Carbon Dioxide 28 mmol/L (22-29); Chloride 104 mmol/L (96-108); Creatinine Clr Calc Pharmacy 47.9; Estimated Glomerular Filt Rate > 60; Glucose Random 103 mg/dL (60-115); Sodium 139 mmol/L (135-145); Total Protein 6.5 g/dL (6.5-8.0)
[2021-11-18 21:07] LABS: Troponin-I High Sensitivity 4.4 ng/L (<3.5-17.0)
[2021-11-18 23:50] LABS: Lipase 9 U/L (8-78)
--- NOTE | 2021-11-19 00:02 | ED.GENADULT ---
HPI - General Adult General Chief complaint: General Medical Stated complaint: med refill Time Seen by Provider: 11/18/21 23:29 Source: patient Mode of arrival: ambulatory Limitations: no limitations History of Present Illness HPI narrative: Patient presents to ED for medication refill of Klonopin. Patient states she ran out of her Klonopin 3 days ago and her refill slat pickler is for tomorrow. Patient has been without Klonopin for 3 days and feel at tingling all over her body and burning. Patient has been on Klonopin for 25 years. Patient states takes Klonopin for anxiety. Patient states feeling more worrisome. Patient states no chest pain, shortness of breath or abdominal pain. Related Data Previous Rx's Medication Instructions Recorded clonazepam 0.5 mg tablet (Klonopin) 0.5 mg PO BID #4 tab 11/17/21 Allergies Allergy/AdvReac Type Severity Reaction Status Date / Time No Known Allergies Allergy Verified 11/18/21 19:16 [No Known Allergies*] Review of Systems Review of Systems: Tingling/burning and body since not having Klonopin Yes all other systems are reviewed and are negative [facility] Past Medical History Medical History Anxiety COPD (chronic obstructive pulmonary disease) Surgical History No history of previous surgery Social History Social History Alcohol intake: unknown Patient Tobacco Use Status: Current everyday Tobacco user Substance Use Type: Sedatives Advance Directives: No Advance Directives Information Provided: No Physical Exam Vital Signs: Vital Signs: Last Vital Signs Temp 98 F 11/18/21 19:16 Pulse 95 11/18/21 19:16 Resp 20 11/18/21 19:16 BP 151/85 H 11/18/21 19:16 Pulse Ox 96 11/18/21 19:16 BMI result Body Mass Index 15.7 Const: General: cooperative, healthy appearing, comfortable, no acute distress, well developed, alert and awake Orientation/consciousness: oriented to time and patient oriented x3 HENMT: Head: Yes normal to inspection, Yes No palpable skull fracture present, Yes normocephalic, Yes atraumatic, Yes abrasion and No Acrocyanosis present Eyes: General: appearance normal, both eyes and all related structures Neck: Neck: Yes normal visual inspection and Yes full ROM Chest: Chest palpation & inspection: normal inspection of the chest and normal palpation of entire chest wall Resp: Effort & Inspection: normal respiratory effort and able to speak in complete sentences Auscultation: clear to auscultation bilaterally Cardio: Jugular venous distension: no JVD Heart sounds: S1 normal heart sound present and S2 normal heart sound present GI: Inspection: Yes normal to inspection and No abdominal wall ecchymosis Palpation (GI): Soft to palpation, not firm, nontender, no guarding and not rigid : General: No CVA tenderness and Yes no CVA tenderness Back/Spine/Pelvis: Back: no CVA tenderness, No CVA tenderness and No back tenderness Skin: General skin exam: no rashes or lesions noted and elasticity normal Neuro: General: oriented to time, patient oriented x3, gait normal and CN's II-XI intact bilaterally Cranial nerves: Yes CN's II-XII intact bilaterally Extrem: General: Yes normal to inspection and Yes full ROM Psych: Appearance: grossly normal, well kempt and not disheveled Course Course Course Narrative: Due to age patient have cardiac evaluation, but symptoms most likely due to anxiety from not having Klonopin. Mild withdrawal Reevaluation(s) Reevaluation #1: Patient alert oriented x3 with normal gait. EKG negative STEMI. Troponin negative. Liver and lipase normal. Negative for abdominal tenderness. Will give patient 1 mg Klonopin Time: 04:[address] Decision [address] [facility] Narrative Medical decision making narrative: Medication refill. Anxiety Lab Data Result diagrams: 11/18/21 20:41 11/18/21 20:42 Labs: Lab Results 11/18/21 11/18/21 11/18/21 Range/Units 20:41 20:42 20:42 WBC 9.4 (4.8-10.8) X10*3/uL RBC 4.05 L (4.20-5.50) X10*6/uL Hgb 12.2 (12.0-16.0) g/dl Hct 37.0 (37.0-47.0) % MCV 91.4 (80.0-98.0) fL MCH 30.1 (27.0-33.0) pg MCHC 33.0 (31.0-35.0) g/dl RDW 12.5 (11.0-16.0) % Plt Count 250 (160-400) X10*3/uL MPV 10.6 (9.4-12.3) fL Immature Gran % (Auto) 0.2 (0.0-0.4) % Neut % (Auto) 78.0 H (45-73) % Lymph % (Auto) 16.5 L (20-40) % [place]iscoe % (Auto) 4.6 (2-11) % Eos % (Auto) 0.2 (0-4) % Baso % (Auto) 0.5 (0-2) % Lymph # (Auto) 1.6 (1.2-4.9) X10*3/uL [place] # (Auto) 0.4 (0.1-1.2) X10*3/uL Eos # (Auto) 0.0 (0.0-0.4) X10*3/uL Baso # (Auto) 0.1 (0.0-0.2) X10*3/uL Abs Immat Gran (auto) 0.02 (0.00-0.03) X10*3/uL Absolute Neuts (auto) 7.4 (2.0-8.3) x10*3/uL Absolute Nucleated RBC 0.000 (0.0-0.012) X10*3/uL Nucleated RBC % (auto) 0.0 (0.0-0.2) /100WBC Sodium 139 (135-145) mmol/L Potassium 4.0 (3.3-5.1) mmol/L Chloride 104 (96-108) mmol/L Carbon Dioxide 28 (22-29) mmol/L Anion Gap 11 L (12-20) BUN 15 (9-16) mg/dL Creatinine 0.74 (0.5-1.4) mg/dL Estim Creat Clear Calc 47.9 Estimated GFR > 60 Random Glucose 103 (60-115) mg/dL Calcium 9.4 D (8.4-10.2) mg/dL Total Bilirubin 0.2 (0.0-1.0) mg/dL AST 14 (5-31) U/L ALT 11 (0-31) U/L Alkaline Phosphatase 83 (39-117) U/L Troponin I High Sens 4.4 (<3.5-17.0) ng/L Total Protein 6.5 (6.5-8.0) g/dL Albumin 4.1 (3.5-5.0) g/dL Lipase 9 (8-78) U/L ECG Data Interpretation: Sinus rhythm with PVC. Ventricular rate 80. Pr interval 120. QRS 66. QTC 442. Negative STEMI Discharge Plan Discharge Clinical Impression: Medication refill Patient Disposition: Home, Self-Care Instructions: Medicine Refill (ED) Additional Instructions: Please slat pickler your Klonopin refill tomorrow. Return to the ED for any tremors, chest pain, shortness breath, suicidal ideation, auditory/visual hallucinations, lethargy, altered mental status, abdominal pain, nausea, vomiting, dysuria, hematuria, fever, chills, flank pain, or any other concerning symptoms. Prescriptions: No Action clonazepam [Klonopin] 0.5 mg tablet 0.5 mg PO BID Qty: 4 RF: 0 Interventions: ED Discharge Assessment Last Done: 11/19/21 01:12 Discharge Date/Time: 11/19/21 01:14 Print Language: Wolof
[2021-11-19] MEDS: clonazePAM 1 MG TABLET PO (01:11)
== END 2021-11-19 01:14 | disposition home or self-care (01) ==
PROVIDERS: Physician Assistant; Emergency Provider Emergency Medicine Emergency Medical Services
DX: Z76.0 Encounter for issue of repeat prescription (principal); F41.9 Anxiety disorder, unspecified
CPT/HCPCS: 36415; 80053; 83690; 84484; 85025; 93005; 99283

== ENCOUNTER 2022-01-11 07:39 | Emergency (ER) | payer MEDICARE, MEDICAID, SELFPAY ==
--- NOTE | ~2022-01-11 | CT_ITS ---
EXAMINATION: CT ABDOMEN AND PELVIS WITHOUT CONTRAST CLINICAL INFORMATION: Diffuse abdominal pain. COMPARISON: CT of the abdomen and pelvis with IV contrast 11/28/2015 TECHNIQUE: Multidetector volumetric imaging was performed from the superior aspect of the liver through the pubic symphysis. Sagittal and coronal reformatted images were obtained on the technologist's workstation. This CT examination was performed using dose optimization techniques as appropriate, variously including the following: *Automated exposure control *Adjustment of mA and/or kV according to patient size (this includes techniques or standardized protocols for targeted exams where dose is matched to indication/reason for exam; i.e. extremities or head) *Use of iterative reconstruction technique DLP: 215 mGy-cm FINDINGS: LUNG BASES: The lung bases are inflated but clear LIVER, GALLBLADDER, AND BILIARY TREE: The liver is normal in size, shape, and attenuation. No focal hepatic lesion or biliary ductal dilatation is present. The gallbladder is unremarkable. PANCREAS: Unremarkable. SPLEEN: Unremarkable. ADRENAL GLANDS: The left tibia gland is slightly plump with focal calcification. The right adrenal gland is normal. KIDNEYS AND URETERS: The kidneys are normal in size, shape, and attenuation. There is a 2 mm radiopaque calculi in mid pole and 1.4 cm cyst lower pole left kidney. BLADDER: The bladder is distended and appears unremarkable. GASTROINTESTINAL TRACT: There is moderate scattered stool and diverticuli in the colon without distention or diverticulitis. The small bowel loops are normal caliber. Appendix is normal caliber. No inflammatory process, free air or free fluid. ABDOMINAL WALL: No significant hernia is appreciated. LYMPH NODES: Normal. VASCULAR: There is atherosclerotic calcification of abdominal aorta without aneurysmal dilatation PELVIC VISCERA: There is no free air or free fluid. The uterus is not visualized and may be surgically removed or atrophied. OSSEOUS STRUCTURES: No aggressive lytic or sclerotic process seen. There is mild superior endplate deformity L2 and L1 vertebra. No aggressive lytic or sclerotic process seen. CT/CT abdomen pelvis wo con IMPRESSION: Significant constipation without any signs of obstruction. Normal appendix. Moderate distention of urinary bladder without any obstructive etiology. Fleischner guidelines were followed.
[2022-01-11 07:49] VITALS: BP 147/70; BP 157/97; PULSE 85; PULSE 98; RESP 18; TEMP 36.5; O2SAT 98; O2SAT 99; BMI 15.4
--- NOTE | 2022-01-11 07:57 | ECG_ITS ---
Test Reason : anxiety Blood Pressure : / mmHG Vent. Rate : 083 BPM Atrial Rate : 083 BPM P-R Int : 148 ms QRS Dur : 076 ms QT Int : 374 ms P-R-T Axes : 060 068 072 degrees QTc Int : 439 ms Poor data quality Normal sinus rhythm Normal ECG When compared with ECG of 18-NOV-2021 20:30, Premature ventricular complexes are no longer Present Referred By: Therese Peralta Electronically Signed By:Brandon Meredith
--- NOTE | 2022-01-11 07:57 | PC.NURSE ---
Pt received from EMS: Pt AOX4 and offers c/o gen abd and back pain with B/L arm burning and numbness. Heart sounds normal and lungs diminished. pt abd flat and gen tenderness. Pt states she feels like she is withdrawing.
--- NOTE | 2022-01-11 08:00 | ED_ITS ---
HPI - General Adult General Chief complaint: Abdominal Pain Stated complaint: ABD PAIN,ACCIDENTALLY TOOK TOO MUCH BENZODIAZEPAM Time Seen by Provider: 01/11/22 07:56 Source: patient and old records reviewed Mode of arrival: EMS Limitations: no limitations History of Present Illness HPI narrative: exact same complaint as when she presented x 2 in November - anxiety, jittery and her whole body is burning with abdominal cramping complaint: benzodiazepine withdrawal Onset (ago): day(s) (7) Location: chest, abdomen, upper extremity and lower extremity Radiation: non-radiation Severity: moderate Quality: burning and dull Pain Consistency: constant Relieving factors: none Exacerbating factors: other (running out of her klonopin on 01/05/22) Associated symptoms: other (nausea, anxiety, burning body, jittery) Treatments prior to arrival: none Related Data Previous Rx's Medication Instructions Recorded clonazepam 0.5 mg tablet (Klonopin) 0.5 mg PO BID #4 tab 11/17/21 cefuroxime axetil 250 mg tablet 250 mg PO BID 7 Days #14 tab 01/11/22 sennosides 8.6 mg capsule (senna) 8.6 mg PO BEDTIME PRN #30 cap 01/11/22 Allergies Allergy/AdvReac Type Severity Reaction Status Date / Time No Known Allergies Allergy Verified 01/11/22 07:49 [No Known Allergies*] Review of Systems Review of Systems: Constitutional : no Fever, No Chills, No Fatigue, No Malaise ENT/Mouth : No sore throat, No Rhinorrhea Eyes: No Eye Pain, No Swelling, No Redness Cardiovascular : No Chest Pain, No SOB, No Dyspnea on Exertion, No Orthopnea, No Edema, No Palpitations Respiratory : No Cough, No Sputum, No Wheezing Gastrointestinal : pos Nausea, No Vomiting, pos Diarrhea, No Constipation, No abdominal Pain, No Hematochezia, No Melena Genitourinary : No Dysuria, No Urinary Frequency, No Hematuria, Musculoskeletal : No joint pain, No Myalgias, No Joint Swelling Skin : No Skin Lesions, No rash Neuro : No Weakness, No Numbness, No Dizziness, No Headache Psych : pos Anxiety/Panic, No Depression Heme/Lymph: No Bruising, No Bleeding,No Lymphadenopathy Endocrine : No Polyuria, No Polydipsia All other systems reviewed and are negative [facility] Past Medical History Attestation statement: The following information was validated with the patient. Medical History Anxiety COPD (chronic obstructive pulmonary disease) Surgical History No history of previous surgery Social History Social History Alcohol intake: unknown Patient Tobacco Use Status: Current everyday Tobacco user Substance Use Type: Sedatives Advance Directives: No Advance Directives Information Provided: No Physical Exam ED Vital Signs: Vital Signs - 24 hr 01/11/22 07:49 01/11/22 12:56 Temperature 97.7 F Pulse Rate 85 72 Respiratory Rate 18 16 Blood Pressure 157/97 H 135/75 Pulse Oximetry 98 97 BMI result Body Mass Index 15.4 Appearance: Alert. Oriented X3. No acute distress. Anxious Eyes: Pupils equal, round and reactive to light. ENT: Pharynx normal. Neck: Normal inspection. Neck supple. CVS: Normal heart rate and rhythm. Pulses normal. Respiratory: No respiratory distress. Breath sounds normal. Abdomen: Soft and nontender. Skin: Skin warm and dry. Normal skin color. Normal skin turgor. Extremities: No lower extremity edema. No calf ttp Neuro: Oriented X 3. No motor deficit. No sensory deficit. Course Course Course Narrative: CARE team did speak to the patient and encouraged her that she needs to notify her provider today of her lack of pills at this time given her history I don't feel comfortable prescribing her additional medications she is 6 days out from her last dose, it is Tuesday she can call her provider, labs reassuring at this time states she still has abdominal cramping though I had to wake her up after klonopin at this time will obtain CT scan aware we are not prescribing her benzos at this time constipation on CT scan able to urinate no issue start on PO ceftin Medical Decision Making MDM Narrative Medical decision making narrative: 66 yo female with hx of anxiety and benzodiazepine abuse comes in after using her klonopin about 10 days too early due to anxiety she denies her sons are taking it as they have substance abuse issues themselves. Her complaint is verbatim the same presentation as back in November at this time will obtain basic labs, drug screen, PO klonopin and I will notify her provider Oni Campbell Lab Data Result diagrams: 01/11/22 08:03 01/11/22 08:03 Labs: Lab Results 01/11/22 01/11/22 01/11/22 Range/Units 08:03 08:03 08:03 WBC 8.8 (4.8-10.8) X10*3/uL RBC 5.41 D (4.20-5.50) X10*6/uL Hgb 15.9 D (12.0-16.0) g/dl Hct 48.0 H D (37.0-47.0) % MCV 88.7 (80.0-98.0) fL MCH 29.4 (27.0-33.0) pg MCHC 33.1 (31.0-35.0) g/dl RDW 12.0 (11.0-16.0) % Plt Count 283 (160-400) X10*3/uL MPV 10.4 (9.4-12.3) fL Immature Gran % (Auto) 0.2 (0.0-0.4) % Neut % (Auto) 76.0 H (45-73) % Lymph % (Auto) 17.5 L (20-40) % Mcdonald % (Auto) 5.1 (2-11) % Eos % (Auto) 0.5 (0-4) % Baso % (Auto) 0.7 (0-2) % Lymph # (Auto) 1.5 (1.2-4.9) X10*3/uL Mcdonald # (Auto) 0.5 (0.1-1.2) X10*3/uL Eos # (Auto) 0.0 (0.0-0.4) X10*3/uL Baso # (Auto) 0.1 (0.0-0.2) X10*3/uL Abs Immat Gran (auto) 0.02 (0.00-0.03) X10*3/uL Absolute Neuts (auto) 6.7 (2.0-8.3) x10*3/uL Absolute Nucleated RBC 0.000 (0.0-0.012) X10*3/uL Nucleated RBC % (auto) 0.0 (0.0-0.2) /100WBC Sodium 141 (135-145) mmol/L Potassium 3.7 (3.3-5.1) mmol/L Chloride 102 (96-108) mmol/L Carbon Dioxide 27 (22-29) mmol/L Anion Gap 16 (12-20) BUN 12 (9-16) mg/dL Creatinine 0.81 (0.5-1.4) mg/dL Estim Creat Clear Calc 42.8 Estimated GFR > 60 Random Glucose 111 (60-115) mg/dL Calcium 10.3 H D (8.4-10.2) mg/dL Magnesium 2.1 (1.6-2.6) mg/dL Total Bilirubin 0.7 (0.0-1.0) mg/dL Direct Bilirubin 0.3 (0.0-0.5) mg/dL AST 16 (5-31) U/L ALT 13 (0-31) U/L Alkaline Phosphatase 86 (39-117) U/L Troponin I High Sens (<3.5-17.0) ng/L Total Protein 7.5 (6.5-8.0) g/dL Albumin 4.6 (3.5-5.0) g/dL Lipase 32 (8-78) U/L Urine Color Urine Appearance Urine pH (5.0-8.0) Ur Specific [place] (1.005-1.025) Urine Protein (NEG-TRACE) MG/DL Urine Glucose (UA) (NEG) MG/DL Urine Ketones (NEG) MG/DL Urine Blood (NEG) Urine Nitrite (NEG) Ur Leukocyte Esterase (NEG) Urine RBC (0) /HPF Urine WBC (0-4) /HPF Ur Squamous Epith Cells /LPF Urine Bacteria /LPF COVID-19 (ROSA) Negative (Negative) COVID-19 Clin Com See Note 01/11/22 01/11/22 Range/Units 08:03 13:38 WBC (4.8-10.8) X10*3/uL RBC (4.20-5.50) X10*6/uL Hgb (12.0-16.0) g/dl Hct (37.0-47.0) % MCV (80.0-98.0) fL MCH (27.0-33.0) pg MCHC (31.0-35.0) g/dl RDW (11.0-16.0) % Plt Count (160-400) X10*3/uL MPV (9.4-12.3) fL Immature Gran % (Auto) (0.0-0.4) % Neut % (Auto) (45-73) % Lymph % (Auto) (20-40) % Mcdonald % (Auto) (2-11) % Eos % (Auto) (0-4) % Baso % (Auto) (0-2) % Lymph # (Auto) (1.2-4.9) X10*3/uL Mcdonald # (Auto) (0.1-1.2) X10*3/uL Eos # (Auto) (0.0-0.4) X10*3/uL Baso # (Auto) (0.0-0.2) X10*3/uL Abs Immat Gran (auto) (0.00-0.03) X10*3/uL Absolute Neuts (auto) (2.0-8.3) x10*3/uL Absolute Nucleated RBC (0.0-0.012) X10*3/uL Nucleated RBC % (auto) (0.0-0.2) /100WBC Sodium (135-145) mmol/L Potassium (3.3-5.1) mmol/L Chloride (96-108) mmol/L Carbon Dioxide (22-29) mmol/L Anion Gap (12-20) BUN (9-16) mg/dL Creatinine (0.5-1.4) mg/dL Estim Creat Clear Calc Estimated GFR Random Glucose (60-115) mg/dL Calcium (8.4-10.2) mg/dL Magnesium (1.6-2.6) mg/dL Total Bilirubin (0.0-1.0) mg/dL Direct Bilirubin (0.0-0.5) mg/dL AST (5-31) U/L ALT (0-31) U/L Alkaline Phosphatase (39-117) U/L Troponin I High Sens < 3.5 (<3.5-17.0) ng/L Total Protein (6.5-8.0) g/dL Albumin (3.5-5.0) g/dL Lipase (8-78) U/L Urine Color YELLOW Urine Appearance HAZY Urine pH 6.5 (5.0-8.0) Ur Specific [place] <= 1.005 (1.005-1.025) Urine Protein NEG (NEG-TRACE) MG/DL Urine Glucose (UA) NEG (NEG) MG/DL Urine Ketones 5 (NEG) MG/DL Urine Blood TRACE (NEG) Urine Nitrite NEG (NEG) Ur Leukocyte Esterase 2+ H (NEG) Urine RBC 0-2 (0) /HPF Urine WBC 10-14 H (0-4) /HPF Ur Squamous Epith Cells 2+ /LPF Urine Bacteria TRACE /LPF COVID-19 (ROSA) (Negative) COVID-19 Clin Com ECG Data Attestation: I personally reviewed and interpreted this ECG as follows: Interpretation: Rate: 83 Rhythm: NSR Martin: normal Normal P waves. Normal STACI. Normal QRS complex. ST T wave : normal no CHAR artifact noted qTC: normal prior studies: no acute ischemia The study has been interpreted contemporaneously by me. . Discharge Plan Discharge Clinical Impression: Benzodiazepine dependence, continuous, Acute UTI Constipation Qualifiers: Constipation type: unspecified constipation type Qualified Code(s): K59.00 - Constipation, unspecified Patient Disposition: Home, Self-Care Instructions: Constipation (ED), Urinary Tract Infection in Women (ED), Benzodiazepine Abuse (ED) Additional Instructions: return to ED for any worsening symptoms or concerns you need to call you prescriber of jolene Plascencia today that you need a refill and that you are overusing your medications Prescriptions: New senna 8.6 mg capsule 8.6 mg PO BEDTIME PRN (Reason: constipation) Qty: 30 0RF cefuroxime axetil 250 mg tablet 250 mg PO BID 7 Days Qty: 14 0RF No Action clonazepam [Klonopin] 0.5 mg tablet 0.5 mg PO BID Qty: 4 0RF Referrals: [facility] [Other]
[2022-01-11 08:07] LABS: MANUAL DIFF FLAG NO
[2022-01-11 08:09] LABS: Basophils Absolute Auto 0.1 X10*3/uL (0.0-0.2); Basophils Percent Auto 0.7 % (0-2); Eosinophils Percent Auto 0.5 % (0-4); Hemoglobin 15.9 g/dl (12.0-16.0); Imm Gran Abs Auto 0.02 X10*3/uL (0.00-0.03); Imm Gran Pct Auto 0.2 % (0.0-0.4); Lymphocytes Absolute Auto 1.5 X10*3/uL (1.2-4.9); Lymphocytes Percent Auto 17.5 % (20-40); Mean Corpuscular HGB Conc 33.1 g/dl (31.0-35.0); Mean Corpuscular Hemoglobin 29.4 pg (27.0-33.0); Mean Corpuscular Volume 88.7 fL (80.0-98.0); Mean Platelet Volume 10.4 fL (9.4-12.3); Monocytes Absolute Auto 0.5 X10*3/uL (0.1-1.2); Monocytes Percent Auto 5.1 % (2-11); Neutrophils Absolute Auto 6.7 x10*3/uL (2.0-8.3); Platelet Count 283 X10*3/uL (160-400); Red Blood Count 5.41 X10*6/uL (4.20-5.50); White Blood Count 8.8 X10*3/uL (4.8-10.8)
[2022-01-11 08:27] LABS: COVID-19 Test Negative (Negative); IDNOW Serial# 16C4AD1C
[2022-01-11 08:28] LABS: Alanine Aminotransferase 13 U/L (0-31); Albumin Level 4.6 g/dL (3.5-5.0); Alkaline Phosphatase 86 U/L (39-117); Anion Gap 16 (12-20); Aspartate Amino Transferase 16 U/L (5-31); Bilirubin Direct 0.3 mg/dL (0.0-0.5); Bilirubin Total 0.7 mg/dL (0.0-1.0); Blood Urea Nitrogen 12 mg/dL (9-16); Calcium 10.3 mg/dL (8.4-10.2); Carbon Dioxide 27 mmol/L (22-29); Chloride 102 mmol/L (96-108); Creatinine Clr Calc Pharmacy 42.8; Estimated Glomerular Filt Rate > 60; Glucose Random 111 mg/dL (60-115); Lipase 32 U/L (8-78); Magnesium 2.1 mg/dL (1.6-2.6); Potassium 3.7 mmol/L (3.3-5.1); Sodium 141 mmol/L (135-145); Total Protein 7.5 g/dL (6.5-8.0); Troponin-I High Sensitivity < 3.5 ng/L (<3.5-17.0)
[2022-01-11] MEDS: clonazePAM 1 MG TABLET PO (08:56)
--- NOTE | 2022-01-11 09:53 | MHC.CARE ---
CARE Team met with Pt regarding her anxiety. Pt reports she feels she has having medical complaints and does not feel they are in the context of anxiety. Note Pt has run out of anxiety medication. Pt reports providers through [facility], Pt is followed by Oni Campbell for psychiatry. CARE Team discussed PHP with Pt. Pt is not interested in other outpatient resources or supports at this time. CARE Team encouraged Pt to follow up directly with providers at [facility] regarding running out of her prescriptions prior to being able to refill them. CARE Team provide Pt [facility] information if needed. CARE Team discussed consult with Dr. Peralta.
--- NOTE | 2022-01-11 11:17 | PC.NURSE ---
pt refusing dc. md to bedside. plan for abd ct.
[2022-01-11 12:56] VITALS: BP 135/75; PULSE 72; RESP 16; O2SAT 97
[2022-01-11 13:46] LABS: Appearance Urine HAZY; Color Urine YELLOW; Glucose Urine UA NEG (NEG); Leukocyte Esterase Urine 2+ (NEG); Nitrite Urine NEG (NEG); PH 6.5 (5.0-8.0); Specific Gravity - Urine <= 1.005 (1.005-1.025); UACC Culture Trigger YES; Urine Blood TRACE (NEG); Urine Ketones 5 MG/DL (NEG); Urine Protein NEG (NEG-TRACE)
[2022-01-11 14:00] LABS: Bacteria Urine TRACE /LPF; RBC Urine 0-2 /HPF (0); Squamous Epithelial Cell Urine 2+ /LPF
== END 2022-01-11 15:40 | disposition home or self-care (01) ==
PROVIDERS: Emergency Provider Emergency Medicine
DX: K59.00 Constipation, unspecified (principal); N39.0 Urinary tract infection, site not specified; F13.20 Sedative, hypnotic or anxiolytic dependence, uncomplicated; F41.9 Anxiety disorder, unspecified; F17.200 Nicotine dependence, unspecified, uncomplicated; Z20.822 Contact with and (suspected) exposure to COVID-19
CPT/HCPCS: 36415; 74176; 80048; 80076; 81001; 83690; 83735; 84484; 85025; 87086; 87635; 93005; 99284

== ENCOUNTER 2022-01-18 22:30 | Emergency (ER) | payer MEDICARE, MEDICAID, SELFPAY ==
--- NOTE | ~2022-01-18 | XR_ITS ---
EXAMINATION: XR CHEST CLINICAL INFORMATION: Shortness of breath. COMPARISON: Chest radiograph dated from 11/12/2021. TECHNIQUE: AP view of the chest was obtained. FINDINGS: EKG wires overlie the chest. Similar appearance of the cardiomediastinal silhouette. Chronic interstitial thickening with pulmonary hyperexpansion. Similar degree of distortion in the lateral aspect of the right mid and lower lung. No new focal airspace opacities, pleural effusions or pneumothorax. No acute osseous abnormalities. Chronic right-sided rib deformities. XR/XR chest 1V IMPRESSION: No acute cardiopulmonary findings. Background of air trapping and interstitial thickening is not significantly changed.
--- NOTE | ~2022-01-18 | XR_ITS ---
EXAMINATION: XR ABDOMEN KUB CLINICAL INDICATION: Abdominal pain. COMPARISON: CT abdomen/pelvis dated from 01/11/2022. TECHNIQUE: AP view of the abdomen. FINDINGS: Nonobstructive bowel gas pattern. Moderate to large volume of stool throughout the colon and rectum. No acute osseous abnormalities. No unexpected foreign bodies. XR/XR KUB IMPRESSION: Nonobstructive bowel gas pattern. Moderate to large stool burden suggesting constipation.
[2022-01-18 22:41] VITALS: BP 158/88; PULSE 84; RESP 18; TEMP 36.6; O2SAT 100; BMI 17.0
--- NOTE | 2022-01-18 22:59 | ECG_ITS ---
Test Reason : ABD PAIN Blood Pressure : / mmHG Vent. Rate : 069 BPM Atrial Rate : 069 BPM P-R Int : 154 ms QRS Dur : 068 ms QT Int : 392 ms P-R-T Axes : 074 070 073 degrees QTc Int : 420 ms Normal sinus rhythm Normal ECG When compared with ECG of 11-JAN-2022 08:04, No significant change was found Referred By: Alexa Ndiaye Electronically Signed By:AKASH LEROY MD
--- NOTE | 2022-01-18 23:00 | PC.NURSE ---
pt to ed via EMS with c/o abd pain which started last week. pt is a poor historian and unsure about details of being sick. pt arrives alert, respirations easy, n/l. skin w/d. will continue to monitor pt.
--- NOTE | 2022-01-18 23:06 | ED.ABDPAIN ---
HPI - Abdominal Pain General Chief Complaint: Abdominal Pain Stated Complaint: SOB,ABD PAIN,98% RA,100% 6LPM DUONEB PER EMS Time Seen by Provider: 01/18/22 22:57 Source: patient Mode of arrival: EMS History of Present Illness HPI narrative: 66-year-old female who comes from home via EMS with complaints ongoing abdominal discomfort without associated nausea, vomiting and she denies any diarrhea and states that she has been constipated. Otherwise, she denies any fever, chills, or urinary symptoms. Patient is known to have COPD and has continued to smoke cigarettes. Patient states that she takes Klonopin at home. Related Data Previous Rx's Medication Instructions Recorded clonazepam 0.5 mg tablet (Klonopin) 0.5 mg PO BID #4 tab 11/17/21 cefuroxime axetil 250 mg tablet 250 mg PO BID 7 Days #14 tab 01/11/22 sennosides 8.6 mg capsule (senna) 8.6 mg PO BEDTIME PRN #30 cap 01/11/22 albuterol sulfate 90 mcg/actuation 1 inh INHALATION QID PRN #6.7 g 01/19/22 aerosol inhaler (Ventolin HFA) polyethylene glycol 3350 17 17 g PO DAILY PRN #119 g 01/19/22 gram/dose oral powder (Miralax) Allergies Allergy/AdvReac Type Severity Reaction Status Date / Time No Known Allergies Allergy Verified 01/11/22 07:49 [No Known Allergies*] Review of Systems Review of Systems Pertinent positives and negatives as stated in HPI 10 point review of systems is otherwise negative. [facility] Past Medical History Source: nursing notes reviewed Medical History Anxiety COPD (chronic obstructive pulmonary disease) Surgical History No history of previous surgery Social History Social History Alcohol intake: unknown Patient Tobacco Use Status: Current everyday Tobacco user Substance Use Type: Sedatives Advance Directives: No Advance Directives Information Provided: Yes Physical Exam ED Vital Signs: Vital Signs - 24 hr 01/18/22 22:41 01/19/22 00:40 01/19/22 01:09 Temperature 98 F Pulse Rate 84 82 75 Respiratory Rate 18 20 20 Blood Pressure 158/88 H 161/98 H 153/82 H Pulse Oximetry 100 98 98 BMI result Body Mass Index 17.0 VITAL SIGNS: Reviewed. GENERAL: Chronically ill, cachectic, in no acute distress. HEAD: Normocephalic/atraumatic EYES: PERRLA, EOMI OROPHARYNX: no oral lesions noted, posterior pharynx clear NECK: Supple, no adenopathy LUNGS: Normal breath sounds, no tachypnea No adventitious sounds or accessory muscle use. SpO2<100> CARDIOVASCULAR: Regular rate and rhythm without noted murmurs ABDOMEN: Soft, diffuse discomfort,, non-distended with bowel sounds. MUSCULOSKELETAL: No tenderness, deformities, or effusions noted on gross inspection. EXTREMITIES: No cyanosis, clubbing or edema. SKIN: Inspection of the skin reveals no rashes NEUROLOGIC: Alert and oriented x 4. Strength and sensation to light touch were grossly intact x 4. Course Course Course Narrative: 66-year-old female with history and clinical presentation consistent with chronic constipation, will evaluate for COPD difficulty although COPD exacerbation is not suspected. Review of all investigations to include review recent documentation consistent with prior presentations. Patient experiencing some transportation difficulties with getting to the pharmacy due to her son having an MVA and no longer able to provide transportation. Otherwise, there are no new or acute changes when compared to prior workup, no evidence of infection reviewed the microbiology report on the urine sample which demonstrated mixed jessica. KUB still demonstrates constipation, but as per nursing patient has had a large bowel movement. Patient was instructed to continue taking her stool softeners and will send additional medications to [facility] on [facility] at patient's request. MDM - Abdominal Pain Lab Data Result diagrams: 01/18/22 23:14 01/18/22 23:14 Labs: Lab Results 01/18/22 01/18/22 01/18/22 Range/Units 23:13 23:14 23:14 WBC 6.6 (4.8-10.8) X10*3/uL RBC 4.63 (4.20-5.50) X10*6/uL Hgb 13.8 (12.0-16.0) g/dl Hct 42.3 (37.0-47.0) % MCV 91.4 (80.0-98.0) fL MCH 29.8 (27.0-33.0) pg MCHC 32.6 (31.0-35.0) g/dl RDW 12.5 (11.0-16.0) % Plt Count 221 (160-400) X10*3/uL MPV 10.9 (9.4-12.3) fL Immature Gran % (Auto) 0.2 (0.0-0.4) % Neut % (Auto) 82.4 H (45-73) % Lymph % (Auto) 11.9 L (20-40) % [place] % (Auto) 4.1 (2-11) % Eos % (Auto) 1.1 (0-4) % Baso % (Auto) 0.3 (0-2) % Lymph # (Auto) 0.8 L (1.2-4.9) X10*3/uL [place] # (Auto) 0.3 (0.1-1.2) X10*3/uL Eos # (Auto) 0.1 (0.0-0.4) X10*3/uL Baso # (Auto) 0.0 (0.0-0.2) X10*3/uL Abs Immat Gran (auto) 0.01 (0.00-0.03) X10*3/uL Absolute Neuts (auto) 5.4 (2.0-8.3) x10*3/uL Absolute Nucleated RBC 0.000 (0.0-0.012) X10*3/uL Nucleated RBC % (auto) 0.0 (0.0-0.2) /100WBC VBG pH 7.42 (7.32-7.43) VBG pCO2 43 mmHg VBG pO2 33 mmHg VBG HCO3 28 H (22-26) mmol/L VBG O2 Saturation 45.0 % VBG Base Excess 3.8 mmol/L Sodium 144 (135-145) mmol/L Potassium 4.8 D (3.3-5.1) mmol/L Chloride 107 (96-108) mmol/L Carbon Dioxide 28 (22-29) mmol/L Anion Gap 14 (12-20) BUN 8 L (9-16) mg/dL Creatinine 0.65 (0.5-1.4) mg/dL Estim Creat Clear Calc 58.8 Estimated GFR > 60 Random Glucose 108 (60-115) mg/dL Calcium 9.5 D (8.4-10.2) mg/dL Total Bilirubin 0.4 (0.0-1.0) mg/dL AST 25 D (5-31) U/L ALT 15 (0-31) U/L Alkaline Phosphatase 88 (39-117) U/L Total Protein 6.6 (6.5-8.0) g/dL Albumin 4.0 (3.5-5.0) g/dL Urine Color Urine Appearance Urine pH (5.0-8.0) Ur Specific [place] (1.005-1.025) Urine Protein (NEG-TRACE) MG/DL Urine Glucose (UA) (NEG) MG/DL Urine Ketones (NEG) MG/DL Urine Blood (NEG) Urine Nitrite (NEG) Ur Leukocyte Esterase (NEG) Urine RBC (0) /HPF Urine WBC (0-4) /HPF Ur Squamous Epith Cells /LPF Amorphous Sediment /LPF Urine Bacteria /LPF 01/19/22 Range/Units 01:10 WBC (4.8-10.8) X10*3/uL RBC (4.20-5.50) X10*6/uL Hgb (12.0-16.0) g/dl Hct (37.0-47.0) % MCV (80.0-98.0) fL MCH (27.0-33.0) pg MCHC (31.0-35.0) g/dl RDW (11.0-16.0) % Plt Count (160-400) X10*3/uL MPV (9.4-12.3) fL Immature Gran % (Auto) (0.0-0.4) % Neut % (Auto) (45-73) % Lymph % (Auto) (20-40) % [place] % (Auto) (2-11) % Eos % (Auto) (0-4) % Baso % (Auto) (0-2) % Lymph # (Auto) (1.2-4.9) X10*3/uL [place] # (Auto) (0.1-1.2) X10*3/uL Eos # (Auto) (0.0-0.4) X10*3/uL Baso # (Auto) (0.0-0.2) X10*3/uL Abs Immat Gran (auto) (0.00-0.03) X10*3/uL Absolute Neuts (auto) (2.0-8.3) x10*3/uL Absolute Nucleated RBC (0.0-0.012) X10*3/uL Nucleated RBC % (auto) (0.0-0.2) /100WBC VBG pH (7.32-7.43) VBG pCO2 mmHg VBG pO2 mmHg VBG HCO3 (22-26) mmol/L VBG O2 Saturation % VBG Base Excess mmol/L Sodium (135-145) mmol/L Potassium (3.3-5.1) mmol/L Chloride (96-108) mmol/L Carbon Dioxide (22-29) mmol/L Anion Gap (12-20) BUN (9-16) mg/dL Creatinine (0.5-1.4) mg/dL Estim Creat Clear Calc Estimated GFR Random Glucose (60-115) mg/dL Calcium (8.4-10.2) mg/dL Total Bilirubin (0.0-1.0) mg/dL AST (5-31) U/L ALT (0-31) U/L Alkaline Phosphatase (39-117) U/L Total Protein (6.5-8.0) g/dL Albumin (3.5-5.0) g/dL Urine Color YELLOW Urine Appearance CLOUDY Urine pH 8.0 (5.0-8.0) Ur Specific [place] 1.015 (1.005-1.025) Urine Protein NEG (NEG-TRACE) MG/DL Urine Glucose (UA) NEG (NEG) MG/DL Urine Ketones NEG (NEG) MG/DL Urine Blood 2+ H (NEG) Urine Nitrite NEG (NEG) Ur Leukocyte Esterase 3+ H (NEG) Urine RBC 30-49 H (0) /HPF Urine WBC 5-9 H (0-4) /HPF Ur Squamous Epith Cells 1+ /LPF Amorphous Sediment 3+ /LPF Urine Bacteria 3+ /LPF ECG Data Attestation: I personally reviewed and interpreted this ECG as follows: Prior ECG tracings: available for review Interpretation: Normal sinus HR -69, no STEMI, NC/QRS/QTC are within limits. Discharge Plan Discharge Clinical Impression: Constipation, Benzodiazepine dependence Patient Disposition: Home, Self-Care Instructions: Constipation (ED), High Fiber Diet (ED), Fleet Enema (ED) Additional Instructions: Please call your primary care provider today to address your concerns regarding your benzodiazepine prescription. Recommend [id number] MiraLax, daily. Increase water intake. Call your primary care provider in the morning. Return to the ER for worsening symptoms. Prescriptions: New polyethylene glycol 3350 [Miralax] 17 gram/dose powder 17 g PO DAILY PRN (Reason: constipation) Qty: 119 0RF albuterol sulfate [Ventolin HFA] 90 mcg/actuation HFA aerosol inhaler 1 inh inhalation QID PRN (Reason: shortness of breath or wheezing) Qty: 6.7 0RF No Action clonazepam [Klonopin] 0.5 mg tablet 0.5 mg PO BID Qty: 4 0RF senna 8.6 mg capsule 8.6 mg PO BEDTIME PRN (Reason: constipation) Qty: 30 0RF cefuroxime axetil 250 mg tablet 250 mg PO BID 7 Days Qty: 14 0RF
[2022-01-18 23:31] LABS: MANUAL DIFF FLAG NO
[2022-01-18 23:37] LABS: Basophils Percent Auto 0.3 % (0-2); Eosinophils Absolute Auto 0.1 X10*3/uL (0.0-0.4); Eosinophils Percent Auto 1.1 % (0-4); Hematocrit 42.3 % (37.0-47.0); Hemoglobin 13.8 g/dl (12.0-16.0); Imm Gran Abs Auto 0.01 X10*3/uL (0.00-0.03); Imm Gran Pct Auto 0.2 % (0.0-0.4); Lymphocytes Absolute Auto 0.8 X10*3/uL (1.2-4.9); Lymphocytes Percent Auto 11.9 % (20-40); Mean Corpuscular HGB Conc 32.6 g/dl (31.0-35.0); Mean Corpuscular Hemoglobin 29.8 pg (27.0-33.0); Mean Corpuscular Volume 91.4 fL (80.0-98.0); Mean Platelet Volume 10.9 fL (9.4-12.3); Monocytes Absolute Auto 0.3 X10*3/uL (0.1-1.2); Monocytes Percent Auto 4.1 % (2-11); Neutrophils Absolute Auto 5.4 x10*3/uL (2.0-8.3); Neutrophils Percent Auto 82.4 % (45-73); Platelet Count 221 X10*3/uL (160-400); Red Blood Count 4.63 X10*6/uL (4.20-5.50); Red Cell Distribution Width 12.5 % (11.0-16.0); White Blood Count 6.6 X10*3/uL (4.8-10.8)
[2022-01-18 23:40] LABS: VBG Base Excess 3.8 mmol/L; VBG pCO2 43 mmHg; VBG pH 7.42 (7.32-7.43); VBG pO2 33 mmHg
[2022-01-18 23:41] LABS: VBG HCO3 28 mmol/L (22-26); Venous Blood Gas Refer to POC result
[2022-01-18 23:54] LABS: Alanine Aminotransferase 15 U/L (0-31); Alkaline Phosphatase 88 U/L (39-117); Anion Gap 14 (12-20); Aspartate Amino Transferase 25 U/L (5-31); Bilirubin Total 0.4 mg/dL (0.0-1.0); Blood Urea Nitrogen 8 mg/dL (9-16); Calcium 9.5 mg/dL (8.4-10.2); Carbon Dioxide 28 mmol/L (22-29); Chloride 107 mmol/L (96-108); Creatinine Clr Calc Pharmacy 58.8; Estimated Glomerular Filt Rate > 60; Glucose Random 108 mg/dL (60-115); Potassium 4.8 mmol/L (3.3-5.1); Sodium 144 mmol/L (135-145); Total Protein 6.6 g/dL (6.5-8.0)
[2022-01-19 00:40] VITALS: BP 161/98; PULSE 82; RESP 20; O2SAT 98
[2022-01-19 01:09] VITALS: BP 153/82; PULSE 75; RESP 20; O2SAT 98
[2022-01-19 01:16] LABS: Appearance Urine CLOUDY; Color Urine YELLOW; Glucose Urine UA NEG (NEG); Leukocyte Esterase Urine 3+ (NEG); Nitrite Urine NEG (NEG); Specific Gravity - Urine 1.015 (1.005-1.025); UACC Culture Trigger YES; Urine Blood 2+ (NEG); Urine Ketones NEG (NEG); Urine Protein NEG (NEG-TRACE)
[2022-01-19 01:29] LABS: Amorphous Sediment Urine 3+ /LPF; Bacteria Urine 3+ /LPF; RBC Urine 30-49 /HPF (0); Squamous Epithelial Cell Urine 1+ /LPF
[2022-01-19] MEDS: Lidocaine HCl Viscous 2 % 15 ML SOLUTION 10 ML MUCOUS MEM (01:55)
[2022-01-19] MEDS: Magnesium Hydrox/Alum Hydrox 30 ML ORAL.SUSP PO (01:55)
[2022-01-19 09:31] LABS: VBG Base Excess 3.8 mmol/L; VBG HCO3 28 mmol/L (22-26); VBG pCO2 43 mmHg; VBG pH 7.42 (7.32-7.43); VBG pO2 33 mmHg
== END 2022-01-19 02:34 | disposition home or self-care (01) ==
PROVIDERS: Emergency Provider Student in an Organized Health Care Education/Training Program
DX: K59.00 Constipation, unspecified (principal); F13.20 Sedative, hypnotic or anxiolytic dependence, uncomplicated; J44.9 Chronic obstructive pulmonary disease, unspecified; F17.200 Nicotine dependence, unspecified, uncomplicated
CPT/HCPCS: 36415; 71045; 74018; 80053; 81001; 82803; 85025; 87086; 93005; 99283; 99284

== ENCOUNTER 2022-02-06 11:30 | Emergency (ER) | payer MEDICARE, MEDICAID, SELFPAY ==
--- NOTE | ~2022-02-06 | CT_ITS ---
EXAMINATION: CT ABDOMEN AND PELVIS WITHOUT CONTRAST CLINICAL INFORMATION: Abdominal cramping for 2 weeks COMPARISON: Previous CT December 2021 TECHNIQUE: Multidetector volumetric imaging was performed from the superior aspect of the liver through the pubic symphysis. Sagittal and coronal reformatted images were obtained on the technologist's workstation. This CT examination was performed using dose optimization techniques as appropriate, variously including the following: *Automated exposure control *Adjustment of mA and/or kV according to patient size (this includes techniques or standardized protocols for targeted exams where dose is matched to indication/reason for exam; i.e. extremities or head) *Use of iterative reconstruction technique DLP: 194 mGy-cm FINDINGS: LUNG BASES: There is a small left posterior diaphragmatic hernia containing fat. The lung bases are otherwise unremarkable. LIVER, GALLBLADDER, AND BILIARY TREE: The liver is normal in size, shape, and attenuation. No focal hepatic lesion or biliary ductal dilatation is present. The gallbladder is unremarkable with no evidence of radiopaque gallstones, gallbladder wall thickening, or obvious pericholecystic inflammatory changes. PANCREAS: Unremarkable. SPLEEN: Unremarkable. ADRENAL GLANDS: There is a small calcification in the left adrenal gland. The adrenal glands are otherwise unremarkable. KIDNEYS AND URETERS: There is fullness of both renal collecting systems. The ureters do not appear dilated. This may represent mild congenital UPJ obstructions. There is a small calcification in the left kidney questionable for stone versus cortical calcification. There is a 1 cm cyst in the lower pole of the left kidney. Findings are similar to prior exams. BLADDER: Unremarkable. GASTROINTESTINAL TRACT: There is stool throughout the colon suggestive of constipation. There is mild diverticulosis. No evidence of diverticulitis is seen. Small and large bowel is otherwise unremarkable. The appendix is unremarkable. The stomach is unremarkable ABDOMINAL WALL: No significant hernia is appreciated. LYMPH NODES: Normal. VASCULAR: There is evidence of atherosclerotic disease. No aneurysm is seen. PELVIC VISCERA: The uterus appears to have been removed. No pelvic mass is seen. OSSEOUS STRUCTURES: Mild lumbar vertebral body compression fractures of the L1-L2 and L4 vertebral bodies appear unchanged. CT/CT abdomen pelvis wo con IMPRESSION: Constipation. Diverticulosis. No evidence of diverticulitis. Stable renal findings.. Fleischner guidelines were followed.
--- NOTE | ~2022-02-06 | XR_ITS ---
EXAMINATION: XR CHEST CLINICAL INFORMATION: Abdominal/epigastric pain COMPARISON: Chest 01/18/2022 and 11/12/2021 TECHNIQUE: Frontal view of the chest was obtained. FINDINGS: The lungs are hyperinflated but clear of acute process. There is mild interstitial thickening in both lungs, stable. There is no pleural effusion or pneumothorax. The heart size and pulmonary vascularity is normal. No gross bony abnormality seen. XR/XR chest 1V IMPRESSION: Hyperinflated lungs without acute process. No change in the chronic interstitial prominence in both lungs.
[2022-02-06 11:39] VITALS: BP 148/87; BP 161/71; PULSE 82; PULSE 95; RESP 18; TEMP 36.5; O2SAT 95; O2SAT 97; BMI 16.2
--- NOTE | 2022-02-06 11:52 | ED_ITS ---
HPI - Abdominal Pain General Chief Complaint: Abdominal Pain Stated Complaint: ABD PAIN X 2 WEEKS,CONSTIPATION X 2 DAYS Time Seen by Provider: 02/06/22 11:37 Source: patient and EMS Mode of arrival: EMS Limitations: no limitations History of Present Illness HPI narrative: 66-year-old female with a past medical history of COPD, anxiety and endometriosis who is currently on 1 mg of clonazepam in the mornings and 0.5 mg clonazepam at bedtime daily reports she is taking as prescribed presenting to the ED with complaints of nausea with associated epigastric abdominal pain that radiates to her back that she reports as cramping/burning sensation for the past 2 weeks. Reports that she had this similar pain 2 weeks ago and she believes it is the same pain. She denies any fevers, chills, dizziness, headache, neck pain/ stiffness, sore throat, loss of taste or smell, chest pain, shortness of breath, dyspnea on exertion, orthopnea, palpitations, dysuria, hematuria, abnormal vaginal discharge, rashes, recent travel, constipation, black or bloody stools, diarrhea, lower extremity edema, calf tenderness, possible bad food exposure, recent antibiotic usage, similar to the other symptoms or any other symptoms complaints or concerns at this time. MD elicited complaint: abdominal pain Pertinent past history: constipation Onset (ago): week(s) (2) Pain Consistency: constant Location: epigastric Severity: moderate Quality: cramping and burning Radiation: back Exacerbating factors: nothing Relieving factors: nothing Associated symptoms: nausea Related Data Previous Rx's Medication Instructions Recorded clonazepam 0.5 mg tablet (Klonopin) 0.5 mg PO BID #4 tab 11/17/21 cefuroxime axetil 250 mg tablet 250 mg PO BID 7 Days #14 tab 01/11/22 sennosides 8.6 mg capsule (senna) 8.6 mg PO BEDTIME PRN #30 cap 01/11/22 albuterol sulfate 90 mcg/actuation 1 inh INHALATION QID PRN #6.7 g 01/19/22 aerosol inhaler (Ventolin HFA) polyethylene glycol 3350 17 17 g PO DAILY PRN #119 g 01/19/22 gram/dose oral powder (Miralax) docusate sodium 50 mg capsule 50 mg PO BID #14 cap 02/06/22 (Colace Clear) polyethylene glycol 3350 17 17 g PO DAILY #238 g 02/06/22 gram/dose oral powder (Miralax) Allergies Allergy/AdvReac Type Severity Reaction Status Date / Time No Known Allergies Allergy Verified 02/06/22 11:39 [No Known Allergies*] Review of Systems Review of Systems Constitutional : No Weight loss, No Fever, No Chills, No Night Sweats, No Fatigue, No Malaise ENT/Mouth : No Hearing loss, No Ear Pain, No Nasal Congestion, No Sinus Pain, No Hoarseness, No sore throat, No Rhinorrhea, No Swallowing Difficulty Eyes: No Eye Pain, No Swelling, No Redness, No Foreign Body, No Discharge, No Vision Changes Cardiovascular : No Chest Pain, No SOB, No Dyspnea on Exertion, No Orthopnea, No Edema, No Palpitations Respiratory : No Cough, No Sputum, No Wheezing, No Smoke Exposure, No Dyspnea Gastrointestinal : + Nausea, + abdominal pain, No Vomiting, No Diarrhea, No Constipation, No Hematochezia, No Melena Genitourinary : no irregular bleeding, No Dysuria, No Urinary Frequency, No Hematuria, No Urinary Incontinence, No Urgency, No Flank Pain, No Urinary Flow Changes, No Hesitancy Musculoskeletal : No joint pain, No Myalgias, No Joint Swelling Skin : No Skin Lesions, No rash Neuro : No Weakness, No Numbness, No Paresthesias, No Loss of Consciousness, No Dizziness, No Headache Psych : No Anxiety/Panic, No Depression, No SI/HI/AH/VH, No Social Issues, Heme/Lymph: No Bruising, No Bleeding,No Lymphadenopathy Endocrine : No Polyuria, No Polydipsia, No Temperature Intolerance Yes all other systems are reviewed and are negative COUNT INCLUDES THE [facility] Past Medical History Attestation statement: The following information was validated with the patient. Medical History Anxiety COPD (chronic obstructive pulmonary disease) Endometriosis Surgical History H/O: hysterectomy Social History Social History Alcohol intake: never Patient Tobacco Use Status: Current someday Tobacco user Use of substances other than those prescribed or required for medical reasons: No Substance Use Type: Sedatives Advance Directives: No Advance Directives Information Provided: No Physical Exam ED Vital Signs: Vital Signs - 24 hr 02/06/22 11:39 02/06/22 15:12 Temperature 97.7 F 98.5 F Pulse Rate 82 73 Respiratory Rate 18 18 Blood Pressure 148/87 H 123/72 Pulse Oximetry 95 90 L BMI result Body Mass Index 16.2 Vital signs have been reviewed Blood pressure 148/87. Pulse 82. Respiration 18. Temperature 97.7 degrees. Oxygen 95% on room air. Appearance: Alert Very anxious. Oriented X3. No acute distress. Head: Normal external exam. Normocephalic. Eyes: PERRLA. EOMI. Conjunctiva and sclera normal. Eyelids normal. ENT: Pharynx normal. Uvula midline. Moist mucous membranes. No trismus noted. No drooling noted. No muffled voice noted. Neck: Normal inspection. Neck supple. FROM. No adenopathy. No meningeal signs. CVS: Normal heart rate and rhythm. Heart sound normal. No murmurs noted. Pulses normal throughout. Respiratory: No respiratory distress. Painless inspiration. Breath sounds normal. No wheezes/rales/rhonchi noted. Chest nontender. No accessory muscle usage noted or decreased air movement noted. Abdomen: Soft and nontender. Nondistended. No guarding. No rigidity. Bowel sounds normal in all 4 quadrants. No distention noted. No organomegaly noted. No visible injury noted. No rebound tenderness. Negative Rovsing sign. Negative obturator's sign. Negative psoas sign. Negative Dewey sign. Back: No CVA tenderness. Full range of motion noted. Skin: Skin warm and dry. Normal skin color. Normal skin turgor. No rashes/lesions/lacerations noted. Extremities: No lower extremity edema noted. No calf tenderness is noted. Extremities exhibit normal range of motion. Extremities nontender. Neuro: Oriented X 3. No motor deficit. No sensory deficit. Reflexes normal. Normal steady gait. CN's II-XII intact bilaterally? Vascular: + bilateral radial pulses. + Distal pedal pulses bilaterally. No cyanosis noted the upper lower extremity. Normal capillary refill noted the upper and lower extremity nails. Course Course Course Narrative: 10pm - 66-year-old female with a past medical history of COPD, anxiety and endometriosis who is currently on 1 mg of clonazepam in the mornings and 0.5 mg clonazepam at bedtime daily reports she is taking as prescribed presenting to the ED with complaints of nausea with associated epigastric abdominal pain that radiates to her back that she reports as cramping/burning sensation for the past 2 weeks. Reports that she had this similar pain 2 weeks ago and she believes it is the same pain. upon physical exam when I was about to leave the patient's room I explained her that I would give her Toradol and she reported that she would rather get clonazepam and I asked her why did she take her prescribed clonazepam this morning and she reported that she did not think of it and that she last took it last night. She reports she is taking as prescribed. She appears very anxious otherwise no other acute distress. Abdomen is soft and nontender. CV RRR. Lungs clear to auscultation. No CVA tenderness is noted. No lower extremity edema or calf tenderness is noted. Plan: labs, chest x-ray, EKG, CT scan abdomen pelvis without IV contrast. Provide 1 mg of clonazepam and 4 mg of Zofran and re-evaluate. Reevaluation(s) Reevaluation #1: - Labs reviewed mild anemia. Carbon Dioxide 32. BUN 8. Troponin at 5.1 and repeat troponin at 4.2 which is negative delta. Otherwise all other labs WNL. - CXR revealed Chronic changes. - CT scan of abd/pelvis revealed constipation. diverticulitis no evidence of diverticulitis. Otherwise no other acute processes noted. - UA WNL. - Patient positive for opioids and fentanyl in all otherwise negative for all other drugs. Therefore patient most likely not taking her clonazepam. I believe the patient is either buying drugs off the street although patient denies this. She reports that no one is stealing her drugs either. I explained her that I will not be giving her any narcotics or any benzos that she can follow-up with her primary care provider /pain management. Patient understands agrees with this plan. - Will d/c home c Miralax and Colace and increased to increase fluids and to f/u c PCP and to return if any new or worsening symptoms. Patient understands agrees with this plan. Time: 15:56 [facility] - Abdominal Pain Medical Records Attestation: I reviewed the patient's medical records. Lab Data Attestation: I reviewed the patient's lab results. Result diagrams: 02/06/22 12:46 02/06/22 12:46 Labs: Lab Results 02/06/22 02/06/22 02/06/22 Range/Units 12:46 12:46 12:46 WBC 6.9 (4.8-10.8) X10*3/uL RBC 4.14 L (4.20-5.50) X10*6/uL Hgb 12.1 (12.0-16.0) g/dl Hct 36.5 L (37.0-47.0) % MCV 88.2 (80.0-98.0) fL MCH 29.2 (27.0-33.0) pg MCHC 33.2 (31.0-35.0) g/dl RDW 12.4 (11.0-16.0) % Plt Count 297 D (160-400) X10*3/uL MPV 9.7 (9.4-12.3) fL Immature Gran % (Auto) 0.3 (0.0-0.4) % Neut % (Auto) 78.0 H (45-73) % Lymph % (Auto) 15.0 L (20-40) % [place] % (Auto) 5.1 (2-11) % Eos % (Auto) 1.0 (0-4) % Baso % (Auto) 0.6 (0-2) % Lymph # (Auto) 1.0 L (1.2-4.9) X10*3/uL [place] # (Auto) 0.4 (0.1-1.2) X10*3/uL Eos # (Auto) 0.1 (0.0-0.4) X10*3/uL Baso # (Auto) 0.0 (0.0-0.2) X10*3/uL Abs Immat Gran (auto) 0.02 (0.00-0.03) X10*3/uL Absolute Neuts (auto) 5.4 (2.0-8.3) x10*3/uL Absolute Nucleated RBC 0.000 (0.0-0.012) X10*3/uL Nucleated RBC % (auto) 0.0 (0.0-0.2) /100WBC Sodium 140 (135-145) mmol/L Potassium 3.5 D (3.3-5.1) mmol/L Chloride 98 (96-108) mmol/L Carbon Dioxide 32 H (22-29) mmol/L Anion Gap 14 (12-20) BUN 8 L (9-16) mg/dL Creatinine 0.78 (0.5-1.4) mg/dL Estim Creat Clear Calc 46.6 Estimated GFR > 60 Random Glucose 102 (60-115) mg/dL Calcium 9.9 (8.4-10.2) mg/dL Magnesium 2.0 (1.6-2.6) mg/dL Total Bilirubin 0.4 (0.0-1.0) mg/dL AST 18 (5-31) U/L ALT 19 (0-31) U/L Alkaline Phosphatase 115 D (39-117) U/L Troponin I High Sens 5.1 (<3.5-17.0) ng/L B-Natriuretic Peptide (<100) pg/mL Total Protein 6.1 L (6.5-8.0) g/dL Albumin 3.9 (3.5-5.0) g/dL Lipase 14 (8-78) U/L Urine Color Urine Appearance Urine pH (5.0-8.0) Ur Specific [place] (1.005-1.025) Urine Protein (NEG-TRACE) MG/DL Urine Glucose (UA) (NEG) MG/DL Urine Ketones (NEG) MG/DL Urine Blood (NEG) Urine Nitrite (NEG) Ur Leukocyte Esterase (NEG) Urine Opiates Screen (Not Detect) Urine Fentanyl Screen (Not Detect) Ur Barbiturates Screen (Not Detect) Ur Phencyclidine Scrn (Not Detect) Ur Amphetamines Screen (Not Detect) U Benzodiazepines Scrn (Not Detect) Urine Cocaine Screen (Not Detect) U Marijuana (THC) Screen (Not Detect) 02/06/22 02/06/22 02/06/22 Range/Units 12:46 15:10 15:23 WBC (4.8-10.8) X10*3/uL RBC (4.20-5.50) X10*6/uL Hgb (12.0-16.0) g/dl Hct (37.0-47.0) % MCV (80.0-98.0) fL MCH (27.0-33.0) pg MCHC (31.0-35.0) g/dl RDW (11.0-16.0) % Plt Count (160-400) X10*3/uL MPV (9.4-12.3) fL Immature Gran % (Auto) (0.0-0.4) % Neut % (Auto) (45-73) % Lymph % (Auto) (20-40) % [place] % (Auto) (2-11) % Eos % (Auto) (0-4) % Baso % (Auto) (0-2) % Lymph # (Auto) (1.2-4.9) X10*3/uL [place] # (Auto) (0.1-1.2) X10*3/uL Eos # (Auto) (0.0-0.4) X10*3/uL Baso # (Auto) (0.0-0.2) X10*3/uL Abs Immat Gran (auto) (0.00-0.03) X10*3/uL Absolute Neuts (auto) (2.0-8.3) x10*3/uL Absolute Nucleated RBC (0.0-0.012) X10*3/uL Nucleated RBC % (auto) (0.0-0.2) /100WBC Sodium (135-145) mmol/L Potassium (3.3-5.1) mmol/L Chloride (96-108) mmol/L Carbon Dioxide (22-29) mmol/L Anion Gap (12-20) BUN (9-16) mg/dL Creatinine (0.5-1.4) mg/dL Estim Creat Clear Calc Estimated GFR Random Glucose (60-115) mg/dL Calcium (8.4-10.2) mg/dL Magnesium (1.6-2.6) mg/dL Total Bilirubin (0.0-1.0) mg/dL AST (5-31) U/L ALT (0-31) U/L Alkaline Phosphatase (39-117) U/L Troponin I High Sens 4.2 (<3.5-17.0) ng/L B-Natriuretic Peptide 86 (<100) pg/mL Total Protein (6.5-8.0) g/dL Albumin (3.5-5.0) g/dL Lipase (8-78) U/L Urine Color Urine Appearance Urine pH (5.0-8.0) Ur Specific [place] (1.005-1.025) Urine Protein (NEG-TRACE) MG/DL Urine Glucose (UA) (NEG) MG/DL Urine Ketones (NEG) MG/DL Urine Blood (NEG) Urine Nitrite (NEG) Ur Leukocyte Esterase (NEG) Urine Opiates Screen POSITIVE H (Not Detect) Urine Fentanyl Screen POSITIVE H (Not Detect) Ur Barbiturates Screen Not Detected (Not Detect) Ur Phencyclidine Scrn Not Detected (Not Detect) Ur Amphetamines Screen Not Detected (Not Detect) U Benzodiazepines Scrn Not Detected (Not Detect) Urine Cocaine Screen Not Detected (Not Detect) U Marijuana (THC) Screen Not Detected (Not Detect) 02/06/22 Range/Units 15:23 WBC (4.8-10.8) X10*3/uL RBC (4.20-5.50) X10*6/uL Hgb (12.0-16.0) g/dl Hct (37.0-47.0) % MCV (80.0-98.0) fL MCH (27.0-33.0) pg MCHC (31.0-35.0) g/dl RDW (11.0-16.0) % Plt Count (160-400) X10*3/uL MPV (9.4-12.3) fL Immature Gran % (Auto) (0.0-0.4) % Neut % (Auto) (45-73) % Lymph % (Auto) (20-40) % [place] % (Auto) (2-11) % Eos % (Auto) (0-4) % Baso % (Auto) (0-2) % Lymph # (Auto) (1.2-4.9) X10*3/uL [place] # (Auto) (0.1-1.2) X10*3/uL Eos # (Auto) (0.0-0.4) X10*3/uL Baso # (Auto) (0.0-0.2) X10*3/uL Abs Immat Gran (auto) (0.00-0.03) X10*3/uL Absolute Neuts (auto) (2.0-8.3) x10*3/uL Absolute Nucleated RBC (0.0-0.012) X10*3/uL Nucleated RBC % (auto) (0.0-0.2) /100WBC Sodium (135-145) mmol/L Potassium (3.3-5.1) mmol/L Chloride (96-108) mmol/L Carbon Dioxide (22-29) mmol/L Anion Gap (12-20) BUN (9-16) mg/dL Creatinine (0.5-1.4) mg/dL Estim Creat Clear Calc Estimated GFR Random Glucose (60-115) mg/dL Calcium (8.4-10.2) mg/dL Magnesium (1.6-2.6) mg/dL Total Bilirubin (0.0-1.0) mg/dL AST (5-31) U/L ALT (0-31) U/L Alkaline Phosphatase (39-117) U/L Troponin I High Sens (<3.5-17.0) ng/L B-Natriuretic Peptide (<100) pg/mL Total Protein (6.5-8.0) g/dL Albumin (3.5-5.0) g/dL Lipase (8-78) U/L Urine Color STRAW Urine Appearance HAZY Urine pH 7.5 (5.0-8.0) Ur Specific [place] 1.010 (1.005-1.025) Urine Protein NEG (NEG-TRACE) MG/DL Urine Glucose (UA) NEG (NEG) MG/DL Urine Ketones NEG (NEG) MG/DL Urine Blood NEG (NEG) Urine Nitrite NEG (NEG) Ur Leukocyte Esterase NEG (NEG) Urine Opiates Screen (Not Detect) Urine Fentanyl Screen (Not Detect) Ur Barbiturates Screen (Not Detect) Ur Phencyclidine Scrn (Not Detect) Ur Amphetamines Screen (Not Detect) U Benzodiazepines Scrn (Not Detect) Urine Cocaine Screen (Not Detect) U Marijuana (THC) Screen (Not Detect) Imaging Data CT scan of the abdomen pelvis without IV contrast: Attestation: I personally reviewed and interpreted this imaging study as follows: Radiologist's impression: FINDINGS: LUNG BASES: There is a small left posterior diaphragmatic hernia containing fat. The lung bases are otherwise unremarkable. LIVER, GALLBLADDER, AND BILIARY TREE: The liver is normal in size, shape, and attenuation. No focal hepatic lesion or biliary ductal dilatation is present. The gallbladder is unremarkable with no evidence of radiopaque gallstones, gallbladder wall thickening, or obvious pericholecystic inflammatory changes.? PANCREAS: Unremarkable.? SPLEEN: Unremarkable.? ADRENAL GLANDS: There is a small calcification in the left adrenal gland. The adrenal glands are otherwise unremarkable. KIDNEYS AND URETERS: There is fullness of both renal collecting systems. The ureters do not appear dilated. This may represent mild congenital UPJ obstructions. There is a small calcification in the left kidney questionable for stone versus cortical calcification. There is a 1 cm cyst in the lower pole of the left kidney. Findings are similar to prior exams. BLADDER: Unremarkable.? GASTROINTESTINAL TRACT: There is stool throughout the colon suggestive of constipation. There is mild diverticulosis. No evidence of diverticulitis is seen. Small and large bowel is otherwise unremarkable. The appendix is unremarkable. The stomach is unremarkable ? ABDOMINAL WALL: No significant hernia is appreciated.? LYMPH NODES: Normal. VASCULAR: There is evidence of atherosclerotic disease. No aneurysm is seen. PELVIC VISCERA: The uterus appears to have been removed. No pelvic mass is seen. OSSEOUS STRUCTURES: Mild lumbar vertebral body compression fractures of the L1-L2 and L4 vertebral bodies appear unchanged. CT/CT abdomen pelvis wo con IMPRESSION: Constipation. Diverticulosis. No evidence of diverticulitis. Stable renal findings..? ? Fleischner guidelines were followed. Chest x-ray: Attestation: I personally reviewed and interpreted this imaging study as follows: Radiologist's impression: FINDINGS: The lungs are hyperinflated but clear of acute process. There is mild interstitial thickening in both lungs, stable. There is no pleural effusion or pneumothorax. The heart size and pulmonary vascularity is normal. No gross bony abnormality seen. XR/XR chest 1V IMPRESSION: Hyperinflated lungs without acute process. No change in the chronic interstitial prominence in both lungs. ECG Data Attestation: I personally reviewed and interpreted this ECG as follows: Critical Care Time Critical Care Time Critical Care Time: Yes Total Critical Care Time: 60 Attestation: I personally attest to this time spent taking care of the patient Discharge Plan Discharge Clinical Impression: Constipation, Diverticulosis, Kidney cysts, Active substance abuse Patient Disposition: Home, Self-Care Instructions: Constipation (DC), Diverticulosis (ED), High Fiber Diet (ED), Kidney Cyst (ED) Additional Instructions: You are positive for opioids and fentanyl on your urine drug screen and you were negative for benzos YOU reports that you are taking your benzos as prescribed although there is nothing in your system. Please continue taking your previously prescribed medications as previously prescribed and do not by any drugs off the street because you do not know what your actually by an or taking you can overdose and from this. Return if any new or worsening symptoms. Follow up with your primary care provider/pain management. Prescriptions: New Colace Clear 50 mg capsule 50 mg PO BID Qty: 14 0RF polyethylene glycol 3350 [Miralax] 17 gram/dose powder 17 g PO DAILY Qty: 238 0RF No Action clonazepam [Klonopin] 0.5 mg tablet 0.5 mg PO BID Qty: 4 0RF polyethylene glycol 3350 [Miralax] 17 gram/dose powder 17 g PO DAILY PRN (Reason: constipation) Qty: 119 0RF albuterol sulfate [Ventolin HFA] 90 mcg/actuation HFA aerosol inhaler 1 inh inhalation QID PRN (Reason: shortness of breath or wheezing) Qty: 6.7 0RF senna 8.6 mg capsule 8.6 mg PO BEDTIME PRN (Reason: constipation) Qty: 30 0RF cefuroxime axetil 250 mg tablet 250 mg PO BID 7 Days Qty: 14 0RF Referrals: Physician,Unknown J [Primary Care Provider] - 2 days (your pcp) Print Language: Frisian
--- NOTE | 2022-02-06 11:52 | ECG_ITS ---
Test Reason : ABD PAIN Blood Pressure : / mmHG Vent. Rate : 071 BPM Atrial Rate : 071 BPM P-R Int : 156 ms QRS Dur : 072 ms QT Int : 386 ms P-R-T Axes : 036 056 064 degrees QTc Int : 419 ms Normal sinus rhythm Normal ECG When compared with ECG of 18-JAN-2022 23:06, No significant change was found Referred By: Lashell Sun Electronically Signed By:Brandon Meredith
[2022-02-06] MEDS: Ondansetron ODT 4 MG TAB.RAPDIS TRANSLINGU (12:03)
[2022-02-06] MEDS: clonazePAM 0.5 MG TABLET 1 MG PO (12:03)
--- NOTE | 2022-02-06 12:05 | PC.NURSE ---
pt medicated per order
--- NOTE | 2022-02-06 12:09 | PC.NURSE ---
pt a&ox3, vss - hypertensive on transport with EMS, pt c/o increased abd pain for 2 weeks w constipation for 2 days, hx of same - seen at [facility] 3 weeks ago. pt reports increased pain and anxiety, denies taking medication this am. pt requesting medication for pain and anxiety. provider in room, pt to CT.
--- NOTE | 2022-02-06 12:49 | PC.NURSE ---
labs drawn, EKG obtained.
[2022-02-06 12:50] LABS: MANUAL DIFF FLAG NO
[2022-02-06 12:51] LABS: Basophils Percent Auto 0.6 % (0-2); Eosinophils Absolute Auto 0.1 X10*3/uL (0.0-0.4); Hematocrit 36.5 % (37.0-47.0); Hemoglobin 12.1 g/dl (12.0-16.0); Imm Gran Abs Auto 0.02 X10*3/uL (0.00-0.03); Imm Gran Pct Auto 0.3 % (0.0-0.4); Mean Corpuscular HGB Conc 33.2 g/dl (31.0-35.0); Mean Corpuscular Hemoglobin 29.2 pg (27.0-33.0); Mean Corpuscular Volume 88.2 fL (80.0-98.0); Mean Platelet Volume 9.7 fL (9.4-12.3); Monocytes Absolute Auto 0.4 X10*3/uL (0.1-1.2); Monocytes Percent Auto 5.1 % (2-11); Neutrophils Absolute Auto 5.4 x10*3/uL (2.0-8.3); Platelet Count 297 X10*3/uL (160-400); Red Blood Count 4.14 X10*6/uL (4.20-5.50); Red Cell Distribution Width 12.4 % (11.0-16.0); White Blood Count 6.9 X10*3/uL (4.8-10.8)
[2022-02-06 13:06] LABS: Alanine Aminotransferase 19 U/L (0-31); Albumin Level 3.9 g/dL (3.5-5.0); Alkaline Phosphatase 115 U/L (39-117); Anion Gap 14 (12-20); Aspartate Amino Transferase 18 U/L (5-31); Bilirubin Total 0.4 mg/dL (0.0-1.0); Blood Urea Nitrogen 8 mg/dL (9-16); Calcium 9.9 mg/dL (8.4-10.2); Carbon Dioxide 32 mmol/L (22-29); Chloride 98 mmol/L (96-108); Creatinine Clr Calc Pharmacy 46.6; Estimated Glomerular Filt Rate > 60; Glucose Random 102 mg/dL (60-115); Lipase 14 U/L (8-78); Potassium 3.5 mmol/L (3.3-5.1); Sodium 140 mmol/L (135-145); Total Protein 6.1 g/dL (6.5-8.0)
[2022-02-06 13:09] LABS: B Type Natriuretic Peptide 86 pg/mL (<100); Troponin-I High Sensitivity 5.1 ng/L (<3.5-17.0)
[2022-02-06 15:12] VITALS: BP 123/72; PULSE 73; RESP 18; TEMP 36.9; O2SAT 90
[2022-02-06 15:41] LABS: Appearance Urine HAZY; Color Urine STRAW; Glucose Urine UA NEG (NEG); Leukocyte Esterase Urine NEG (NEG); Nitrite Urine NEG (NEG); PH 7.5 (5.0-8.0); Urine Blood NEG (NEG); Urine Ketones NEG (NEG); Urine Protein NEG (NEG-TRACE)
[2022-02-06 15:43] LABS: Troponin-I High Sensitivity 4.2 ng/L (<3.5-17.0)
--- NOTE | 2022-02-06 15:43 | PC.NURSE ---
pt a&ox3, vss, obtained urine sample, pain slightly reduced, will continue to monitor.
[2022-02-06 15:58] LABS: Amphetamine Screen Urine Not Detected (Not Detect); Barbiturates, Urine Not Detected (Not Detect); Benzodiazepines Screen Urine Not Detected (Not Detect); Cannabinoid Screen Urine Not Detected (Not Detect); Cocaine Screen Urine Not Detected (Not Detect); Fentanyl, urine POSITIVE (Not Detect); Opiate Screen Urine POSITIVE (Not Detect); Phencyclidine Screen Urine Not Detected (Not Detect)
[2022-02-06] MEDS: Ketorolac Tromethamine 30 MG/ML VIAL IM (16:15)
--- NOTE | 2022-02-06 16:16 | PC.NURSE ---
pt medicated per order
--- NOTE | 2022-02-06 16:18 | PC.NURSE ---
pt medicated per order
== END 2022-02-06 16:51 | disposition home or self-care (01) ==
PROVIDERS: Physician Assistant Medical; Emergency Provider Emergency Medicine
DX: K59.00 Constipation, unspecified (principal); K57.90 Diverticulosis of intestine, part unspecified, without perforation or abscess without bleeding; Q61.01 Congenital single renal cyst; F19.10 Other psychoactive substance abuse, uncomplicated; F17.200 Nicotine dependence, unspecified, uncomplicated; F41.9 Anxiety disorder, unspecified; J44.9 Chronic obstructive pulmonary disease, unspecified; Z79.899 Other long term (current) drug therapy
CPT/HCPCS: 36415; 71045; 74176; 80053; 80307; 81003; 83690; 83735; 83880; 84484; 85025; 93005; 96372; 99285; 99291; J1885

== ENCOUNTER 2022-02-21 06:17 | Emergency (ER) | payer MEDICARE, MEDICAID, SELFPAY ==
--- NOTE | ~2022-02-21 | XR_ITS ---
EXAMINATION: CR CHEST CLINICAL INFORMATION: Chest pain. COMPARISON: Chest x-ray dated 02/06/2022. TECHNIQUE: AP portable view of the chest was obtained. FINDINGS: EKG leads overlie the chest. The cardiomediastinal silhouette is within normal limits in size. Calcification of the aortic arch is seen. Lungs bilaterally are symmetrically hyperinflated. Diffuse coarsening of the lung markings and mild biapical pleural thickening and reticulation consistent with scarring are again seen, similar to the prior exam. No focal consolidation, effusion or pneumothorax is seen. Bony structures are unremarkable. XR/XR chest 1V IMPRESSION: Findings are consistent with obstructive lung disease with mild biapical scarring. No superimposed focal acute process.
[2022-02-21 06:25] VITALS: BP 157/81; BP 170/90; PULSE 90; PULSE 94; RESP 18; TEMP 36.7; O2SAT 100; O2SAT 97; BMI 16.2
--- NOTE | 2022-02-21 06:39 | ECG_ITS ---
Test Reason : PAIN Blood Pressure : / mmHG Vent. Rate : 072 BPM Atrial Rate : 072 BPM P-R Int : 134 ms QRS Dur : 076 ms QT Int : 392 ms P-R-T Axes : 045 058 069 degrees QTc Int : 429 ms Normal sinus rhythm Normal ECG When compared with ECG of 06-FEB-2022 12:35, No significant change was found Referred By: Alem Sol Electronically Signed By:AKASH LEROY MD
--- NOTE | 2022-02-21 06:40 | ED_ITS ---
HPI - Abdominal Pain General Chief Complaint: Abdominal Pain Stated Complaint: ADB PAIN Time Seen by Provider: 02/21/22 06:33 Source: patient Mode of arrival: ambulatory Limitations: no limitations History of Present Illness HPI narrative: Patient comes to emergency room complaining of chest pain, abdominal pain/cr amping, anxiety. Patient states that she has not taking Klonopin for 3 days. Patient denies vomiting or diarrhea. Patient usually takes 1 mg of Klonopin in the morning and 0.5 at bedtime. Patient states that tomorrow she is going to start a program were people medicate her at home, in order to avoid running out of Klonopin earlier. Patient denies URI or UTI symptoms. Related Data Previous Rx's Medication Instructions Recorded clonazepam 0.5 mg tablet (Klonopin) 0.5 mg PO BID #4 tab 11/17/21 cefuroxime axetil 250 mg tablet 250 mg PO BID 7 Days #14 tab 01/11/22 sennosides 8.6 mg capsule (senna) 8.6 mg PO BEDTIME PRN #30 cap 01/11/22 albuterol sulfate 90 mcg/actuation 1 inh INHALATION QID PRN #6.7 g 01/19/22 aerosol inhaler (Ventolin HFA) polyethylene glycol 3350 17 17 g PO DAILY PRN #119 g 01/19/22 gram/dose oral powder (Miralax) docusate sodium 50 mg capsule 50 mg PO BID #14 cap 02/06/22 (Colace Clear) polyethylene glycol 3350 17 17 g PO DAILY #238 g 02/06/22 gram/dose oral powder (Miralax) clonazepam 0.5 mg tablet 0.5 mg PO BEDTIME #1 tab 02/21/22 Allergies Allergy/AdvReac Type Severity Reaction Status Date / Time No Known Allergies Allergy Verified 02/06/22 11:39 [No Known Allergies*] Review of Systems Review of Systems Constitutional : No Weight loss, No Fever, No Chills, No Night Sweats, No Fatigue, No Malaise ENT/Mouth : No Hearing loss, No Ear Pain, No Nasal Congestion, No Sinus Pain, No Hoarseness, No sore throat, No Rhinorrhea, No Swallowing Difficulty Eyes: No Eye Pain, No Swelling, No Redness, No Foreign Body, No Discharge, No Vision Changes Cardiovascular : Complaining of bilateral chest discomfort, no significant pain, No SOB, No Dyspnea on Exertion, No Orthopnea, No Edema, No Palpitations Respiratory : No Cough, No Sputum, No Wheezing, No Smoke Exposure, No Dyspnea Gastrointestinal : No Nausea, No Vomiting, No Diarrhea, No Constipation, complaining of abdominal cramping Genitourinary : no irregular bleeding, No Dysuria, No Urinary Frequency, No Hematuria, No Urinary Incontinence, No Urgency, No Flank Pain, No Urinary Flow Changes, No Hesitancy Musculoskeletal : No joint pain, No Myalgias, No Joint Swelling Skin : No Skin Lesions, No rash Neuro : No Weakness, No Numbness, No Paresthesias, No Loss of Consciousness, No Dizziness, No Headache Psych : No Anxiety/Panic, No Depression, No SI/HI/AH/VH, No Social Issues, Heme/Lymph: No Bruising, No Bleeding,No Lymphadenopathy Endocrine : No Polyuria, No Polydipsia, No Temperature Intolerance PMFSH Past Medical History Medical History Anxiety COPD (chronic obstructive pulmonary disease) Endometriosis Surgical History H/O: hysterectomy Social History Social History Alcohol intake: never Patient Tobacco Use Status: Current someday Tobacco user Use of substances other than those prescribed or required for medical reasons: No Substance Use Type: Sedatives Advance Directives: No Advance Directives Information Provided: Yes Physical Exam ED Vital Signs: Vital Signs - 24 hr 02/21/22 06:25 Temperature 98.0 F Pulse Rate 94 Respiratory Rate 18 Blood Pressure 157/81 H Pulse Oximetry 100 BMI result Body Mass Index 16.2 Course Course Course Narrative: Labs and imaging pending. Patient will be given 1 dose of Klonopin, 1 mg. Overall patient feeling better. Patient will be giving a prescription for 1 tablet for tonight. Patient will be starting her medication control program tomorrow. Patient has no tremors, no seizure-like activity. MDM - Abdominal Pain Lab Data Result diagrams: 02/21/22 06:58 02/21/22 06:58 Labs: Lab Results 02/21/22 02/21/22 02/21/22 Range/Units 06:58 06:58 06:58 WBC 7.9 (4.8-10.8) X10*3/uL RBC 4.38 (4.20-5.50) X10*6/uL Hgb 12.8 (12.0-16.0) g/dl Hct 39.0 (37.0-47.0) % MCV 89.0 (80.0-98.0) fL MCH 29.2 (27.0-33.0) pg MCHC 32.8 (31.0-35.0) g/dl RDW 12.2 (11.0-16.0) % Plt Count 265 (160-400) X10*3/uL MPV 10.7 (9.4-12.3) fL Immature Gran % (Auto) 0.4 (0.0-0.4) % Neut % (Auto) 80.4 H (45-73) % Lymph % (Auto) 13.2 L (20-40) % [place] % (Auto) 4.8 (2-11) % Eos % (Auto) 0.4 (0-4) % Baso % (Auto) 0.8 (0-2) % Lymph # (Auto) 1.0 L (1.2-4.9) X10*3/uL [place] # (Auto) 0.4 (0.1-1.2) X10*3/uL Eos # (Auto) 0.0 (0.0-0.4) X10*3/uL Baso # (Auto) 0.1 (0.0-0.2) X10*3/uL Abs Immat Gran (auto) 0.03 (0.00-0.03) X10*3/uL Absolute Neuts (auto) 6.4 (2.0-8.3) x10*3/uL Absolute Nucleated RBC 0.000 (0.0-0.012) X10*3/uL Nucleated RBC % (auto) 0.0 (0.0-0.2) /100WBC Sodium 139 (135-145) mmol/L Potassium 4.5 D (3.3-5.1) mmol/L Chloride 103 (96-108) mmol/L Carbon Dioxide 27 (22-29) mmol/L Anion Gap 14 (12-20) BUN 13 D (9-16) mg/dL Creatinine 0.76 (0.5-1.4) mg/dL Estim Creat Clear Calc 48.0 Estimated GFR > 60 Random Glucose 103 (60-115) mg/dL Calcium 10.2 (8.4-10.2) mg/dL Total Bilirubin 0.4 (0.0-1.0) mg/dL Direct Bilirubin 0.2 (0.0-0.5) mg/dL AST 17 (5-31) U/L ALT 18 (0-31) U/L Alkaline Phosphatase 122 H (39-117) U/L Troponin I High Sens < 3.5 (<3.5-17.0) ng/L Total Protein 6.8 (6.5-8.0) g/dL Albumin 4.2 (3.5-5.0) g/dL COVID-19 (RSOA) (Negative) COVID-19 Clin Com 02/21/22 Range/Units 06:58 WBC (4.8-10.8) X10*3/uL RBC (4.20-5.50) X10*6/uL Hgb (12.0-16.0) g/dl Hct (37.0-47.0) % MCV (80.0-98.0) fL MCH (27.0-33.0) pg MCHC (31.0-35.0) g/dl RDW (11.0-16.0) % Plt Count (160-400) X10*3/uL MPV (9.4-12.3) fL Immature Gran % (Auto) (0.0-0.4) % Neut % (Auto) (45-73) % Lymph % (Auto) (20-40) % [place] % (Auto) (2-11) % Eos % (Auto) (0-4) % Baso % (Auto) (0-2) % Lymph # (Auto) (1.2-4.9) X10*3/uL [place] # (Auto) (0.1-1.2) X10*3/uL Eos # (Auto) (0.0-0.4) X10*3/uL Baso # (Auto) (0.0-0.2) X10*3/uL Abs Immat Gran (auto) (0.00-0.03) X10*3/uL Absolute Neuts (auto) (2.0-8.3) x10*3/uL Absolute Nucleated RBC (0.0-0.012) X10*3/uL Nucleated RBC % (auto) (0.0-0.2) /100WBC Sodium (135-145) mmol/L Potassium (3.3-5.1) mmol/L Chloride (96-108) mmol/L Carbon Dioxide (22-29) mmol/L Anion Gap (12-20) BUN (9-16) mg/dL Creatinine (0.5-1.4) mg/dL Estim Creat Clear Calc Estimated GFR Random Glucose (60-115) mg/dL Calcium (8.4-10.2) mg/dL Total Bilirubin (0.0-1.0) mg/dL Direct Bilirubin (0.0-0.5) mg/dL AST (5-31) U/L ALT (0-31) U/L Alkaline Phosphatase (39-117) U/L Troponin I High Sens (<3.5-17.0) ng/L Total Protein (6.5-8.0) g/dL Albumin (3.5-5.0) g/dL COVID-19 (ROSA) Negative (Negative) COVID-19 Clin Com See Note Imaging Data Chest x-ray: Radiologist's impression: FINDINGS: EKG leads overlie the chest. The cardiomediastinal silhouette is within normal limits in size. Calcification of the aortic arch is seen. Lungs bilaterally are symmetrically hyperinflated. Diffuse coarsening of the lung markings and mild biapical pleural thickening and reticulation consistent with scarring are again seen, similar to the prior exam. No focal consolidation, effusion or pneumothorax is seen. Bony structures are unremarkable. XR/XR chest 1V IMPRESSION: Findings are consistent with obstructive lung disease with mild biapical scarring. No superimposed focal acute process. Discharge Plan Discharge Clinical Impression: Atypical chest pain, Abdominal pain Patient Disposition: Home, Self-Care Instructions: Chest Pain (ED) Additional Instructions: Please follow-up with your primary care physician tomorrow. If you have any worsening or new symptoms, please return to the emergency room or call 911 Prescriptions: New clonazepam 0.5 mg tablet 0.5 mg PO BEDTIME Qty: 1 0RF Rx Instructions: administer 30 minutes before bedtime No Action clonazepam [Klonopin] 0.5 mg tablet 0.5 mg PO BID Qty: 4 0RF polyethylene glycol 3350 [Miralax] 17 gram/dose powder 17 g PO DAILY PRN (Reason: constipation) Qty: 119 0RF albuterol sulfate [Ventolin HFA] 90 mcg/actuation HFA aerosol inhaler 1 inh inhalation QID PRN (Reason: shortness of breath or wheezing) Qty: 6.7 0RF Colace Clear 50 mg capsule 50 mg PO BID Qty: 14 0RF polyethylene glycol 3350 [Miralax] 17 gram/dose powder 17 g PO DAILY Qty: 238 0RF senna 8.6 mg capsule 8.6 mg PO BEDTIME PRN (Reason: constipation) Qty: 30 0RF cefuroxime axetil 250 mg tablet 250 mg PO BID 7 Days Qty: 14 0RF
[2022-02-21] MEDS: clonazePAM 1 MG TABLET PO (06:53)
[2022-02-21 07:02] LABS: MANUAL DIFF FLAG NO
[2022-02-21 07:18] LABS: Alanine Aminotransferase 18 U/L (0-31); Albumin Level 4.2 g/dL (3.5-5.0); Alkaline Phosphatase 122 U/L (39-117); Anion Gap 14 (12-20); Aspartate Amino Transferase 17 U/L (5-31); Bilirubin Direct 0.2 mg/dL (0.0-0.5); Bilirubin Total 0.4 mg/dL (0.0-1.0); Blood Urea Nitrogen 13 mg/dL (9-16); Calcium 10.2 mg/dL (8.4-10.2); Carbon Dioxide 27 mmol/L (22-29); Chloride 103 mmol/L (96-108); Estimated Glomerular Filt Rate > 60; Glucose Random 103 mg/dL (60-115); Potassium 4.5 mmol/L (3.3-5.1); Sodium 139 mmol/L (135-145); Total Protein 6.8 g/dL (6.5-8.0)
[2022-02-21 07:21] LABS: Basophils Absolute Auto 0.1 X10*3/uL (0.0-0.2); Basophils Percent Auto 0.8 % (0-2); Eosinophils Percent Auto 0.4 % (0-4); Hemoglobin 12.8 g/dl (12.0-16.0); Imm Gran Abs Auto 0.03 X10*3/uL (0.00-0.03); Imm Gran Pct Auto 0.4 % (0.0-0.4); Lymphocytes Percent Auto 13.2 % (20-40); Mean Corpuscular HGB Conc 32.8 g/dl (31.0-35.0); Mean Corpuscular Hemoglobin 29.2 pg (27.0-33.0); Mean Platelet Volume 10.7 fL (9.4-12.3); Monocytes Absolute Auto 0.4 X10*3/uL (0.1-1.2); Monocytes Percent Auto 4.8 % (2-11); Neutrophils Absolute Auto 6.4 x10*3/uL (2.0-8.3); Neutrophils Percent Auto 80.4 % (45-73); Platelet Count 265 X10*3/uL (160-400); Red Blood Count 4.38 X10*6/uL (4.20-5.50); Red Cell Distribution Width 12.2 % (11.0-16.0); White Blood Count 7.9 X10*3/uL (4.8-10.8)
[2022-02-21 07:23] LABS: Troponin-I High Sensitivity < 3.5 ng/L (<3.5-17.0)
[2022-02-21 07:26] LABS: COVID-19 Test Negative (Negative); IDNOW Serial# 16C4AD1C
[2022-02-21 08:03] VITALS: BP 137/78; PULSE 87; RESP 16; O2SAT 98
[2022-02-21] MEDS: Magnesium Hydrox/Alum Hydrox 30 ML ORAL.SUSP PO (08:14)
== END 2022-02-21 08:17 | disposition home or self-care (01) ==
PROVIDERS: Emergency Provider Emergency Medicine
DX: R07.89 Other chest pain (principal); R10.9 Unspecified abdominal pain; Z20.822 Contact with and (suspected) exposure to COVID-19; F17.200 Nicotine dependence, unspecified, uncomplicated; Z71.6 Tobacco abuse counseling; Z79.899 Other long term (current) drug therapy
CPT/HCPCS: 71045; 80048; 80076; 84484; 85025; 87635; 93005; 99283; 99284

== ENCOUNTER 2022-02-27 10:17 | Emergency (ER) | payer MEDICARE, MEDICAID, SELFPAY ==
--- NOTE | 2022-02-27 10:30 | ED.PSYCH ---
HPI - Psych General Chief Complaint: Dyspnea Stated Complaint: shortness of breath Time Seen by Provider: 02/27/22 10:20 Source: patient and old records reviewed Mode of arrival: EMS Limitations: no limitations History of Present Illness HPI Narrative: patient telling convoluted story of her jolene is at her sister's house for 2 days and her sister went to the [facility] and now she has abdominal pain and nausea/anxiety and needs a dose of klonopin. she filled 30 tabs on 02/10 she didn't remember coming here on 02/21 and getting a dose or fill. She recently tested positive in January as well for opiates and fentanyl. She admits that she is taking upwards of 3 tabs a day after much prodding. MD complaint: other (anxiety - my brindaonopin is locked in my sister's house ) Onset (ago): day(s) (2) Duration: constant and intermittent History of same: Yes Relieving factors: medication Exacerbating factors: none Context: other (overuse of klonopin) Associated psychiatric symptoms: other (abdominal cramps, nausea, dyspnea) Associated symptoms: other Treatments prior to arrival: none Related Data Previous Rx's Medication Instructions Recorded clonazepam 0.5 mg tablet (Klonopin) 0.5 mg PO BID #4 tab 11/17/21 cefuroxime axetil 250 mg tablet 250 mg PO BID 7 Days #14 tab 01/11/22 sennosides 8.6 mg capsule (senna) 8.6 mg PO BEDTIME PRN #30 cap 01/11/22 albuterol sulfate 90 mcg/actuation 1 inh INHALATION QID PRN #6.7 g 01/19/22 aerosol inhaler (Ventolin HFA) polyethylene glycol 3350 17 17 g PO DAILY PRN #119 g 01/19/22 gram/dose oral powder (Miralax) docusate sodium 50 mg capsule 50 mg PO BID #14 cap 02/06/22 (Colace Clear) polyethylene glycol 3350 17 17 g PO DAILY #238 g 02/06/22 gram/dose oral powder (Miralax) clonazepam 0.5 mg tablet 0.5 mg PO BEDTIME #1 tab 02/21/22 Allergies Allergy/AdvReac Type Severity Reaction Status Date / Time No Known Allergies Allergy Verified 02/06/22 11:39 [No Known Allergies*] Review of Systems Review of Systems: Constitutional : No Fever, No Chills ENT/Mouth : No sore throat, No Rhinorrhea, No Swallowing Difficulty Eyes: No Eye Pain, No Swelling, No Redness Cardiovascular : No Chest Pain, positive SOB, No Orthopnea, no Edema Respiratory : No Cough, No Sputum, No Wheezing, positive dyspnea Gastrointestinal : pos Nausea, No Vomiting, No Diarrhea, pos abdominal Pain, No Hematochezia, No Melena Genitourinary : No Dysuria, No Urinary Frequency, No Hematuria Musculoskeletal : No joint pain, No Myalgias Skin : No Skin Lesions, No rash Neuro : No Weakness, No Numbness, No Dizziness, No Headache Psych : pos Anxiety/Panic, No Depression Heme/Lymph: No Bruising, No Lymphadenopathy Endocrine : No Polyuria, No Polydipsia All other systems reviewed and are negative [facility] Past Medical History Medical History Anxiety COPD (chronic obstructive pulmonary disease) Endometriosis Surgical History H/O: hysterectomy Social History Social History Alcohol intake: never Patient Tobacco Use Status: Former Tobacco user Use of substances other than those prescribed or required for medical reasons: No Substance Use Type: Sedatives Advance Directives: No Advance Directives Information Provided: No Physical Exam Vital Signs: Vital Signs: Last Vital Signs Temp 97.8 F 02/27/22 10:56 Pulse 83 02/27/22 10:56 Resp 15 02/27/22 10:56 BP 143/81 H 02/27/22 10:56 Pulse Ox 98 02/27/22 10:56 BMI result Body Mass Index 15.7 Appearance: Alert. Oriented X3. No acute distress. Anxious Eyes: Pupils equal, round and reactive to light. ENT: Pharynx normal. Neck: Normal inspection. Neck supple. CVS: Normal heart rate and rhythm. Pulses normal. Respiratory: No respiratory distress. Breath sounds normal. Abdomen: Soft and non-tender. Skin: Skin warm and dry. Normal skin color. Normal skin turgor. Extremities: No lower extremity edema. Neuro: Oriented X 3. No motor deficit. No sensory deficit. Course Course Course Narrative: does not want help with detox can follow up with her provider no signs of tachycardia or tremors MDM - Psych MDM Narrative Medical decision making narrative: 66 yo female with hx of COPD, anxiety - running out of klonopin has been seen multiple times recently with bridging Rx but not notifying her prescriber. She comes in again today with abdominal pain, nausea, dyspnea - chronic presentation for her. She has a very convoluted story about her meds today but then admits she only has 5 pills left which I'm not sure is true. At this time 1mg here. Will refer to recovery/addiction team. Anticipate DC home. Discharge Plan Discharge Clinical Impression: Benzodiazepine abuse Patient Disposition: Home, Self-Care Instructions: Barbiturate Abuse (ED) Additional Instructions: return to ED for any worsening symptoms or concerns you need to have a discussion with your prescriber about your actual use of your klonopin Prescriptions: No Action clonazepam [Klonopin] 0.5 mg tablet 0.5 mg PO BID Qty: 4 0RF polyethylene glycol 3350 [Miralax] 17 gram/dose powder 17 g PO DAILY PRN (Reason: constipation) Qty: 119 0RF albuterol sulfate [Ventolin HFA] 90 mcg/actuation HFA aerosol inhaler 1 inh inhalation QID PRN (Reason: shortness of breath or wheezing) Qty: 6.7 0RF Colace Clear 50 mg capsule 50 mg PO BID Qty: 14 0RF polyethylene glycol 3350 [Miralax] 17 gram/dose powder 17 g PO DAILY Qty: 238 0RF clonazepam 0.5 mg tablet 0.5 mg PO BEDTIME Qty: 1 0RF Rx Instructions: administer 30 minutes before bedtime senna 8.6 mg capsule 8.6 mg PO BEDTIME PRN (Reason: constipation) Qty: 30 0RF cefuroxime axetil 250 mg tablet 250 mg PO BID 7 Days Qty: 14 0RF
[2022-02-27 10:56] VITALS: BP 143/81; BP 148/90; PULSE 110; PULSE 83; RESP 15; TEMP 36.6; O2SAT 98; O2SAT 99; BMI 15.7
[2022-02-27] MEDS: clonazePAM 1 MG TABLET PO (11:03)
--- NOTE | 2022-02-27 11:29 | MHC.RECOVSUP ---
Recovery Support note: Patient is a 66 year old [place] speaking female who presented to [facility] ED due to shortness of breath. This newswriter met with patient to discuss substance use and treatment options. Patient reports she gets prescribed Klonopin but takes them more than she is prescribed. Patient reports she gets anxiety and takes the medication immediately. Discussed coping mechanisms with patient. Patient reports she finds it helpful to go for a walk. Patient reports she left her medications at her sister's house and that her sister is out of town and she does not have access to her medications. Patient acknowledged that she is overtaking her medication and that this is a problem, however she is not interested in coming off of the medication. Patient reports she is interested in having a visiting nurse for medication management. Educated patient on the process to follow to obtain a visiting nurse. Discussed PHP with patient and provided patient with information on how to enroll in this program. This newswriter discussed with patient that when she came a couple weeks ago she had opiates and fentanyl in her system and no benzos. Patient expressed fear and shock and began to panic. Patient reports she bought a pill and was told it was a benzo. Patient states she will not be buying medication from the street anymore. Discussed case with ED physician.
--- NOTE | 2022-02-27 11:49 | PC.NURSE ---
Patient discharged, while cleaning room found a white earring without backing. Placed in a denture cup with patient label and given to security.
== END 2022-02-27 11:37 | disposition home or self-care (01) ==
PROVIDERS: Emergency Provider Emergency Medicine; PCP Family Medicine
DX: F13.10 Sedative, hypnotic or anxiolytic abuse, uncomplicated (principal); J44.9 Chronic obstructive pulmonary disease, unspecified
CPT/HCPCS: 99283; 99284

== ENCOUNTER 2022-04-01 10:37 | Emergency (ER) | payer MEDICARE, MEDICAID, SELFPAY ==
[2022-04-01] VITALS (8 sets, daily range): BP systolic 133–174; BP diastolic 64–90; PULSE 90–102; RESP 15–28; TEMP 36.3–36.7; O2SAT 93–99; BMI 17.6
--- NOTE | ~2022-04-01 | XR_ITS ---
EXAMINATION: XR CHEST CLINICAL INFORMATION: Weakness. COMPARISON: 02/21/2022 chest radiograph. TECHNIQUE: Frontal view of the chest was obtained. FINDINGS: No significant abnormality is noted involving the heart, lungs, mediastinum, bony thorax or soft tissues. XR/XR chest 1V IMPRESSION: No acute cardiopulmonary process.
--- NOTE | ~2022-04-01 | CT_ITS ---
EXAMINATION: CT CERVICAL SPINE WITHOUT CONTRAST CLINICAL INFORMATION: Neck pain status post unwitnessed fall. COMPARISON: None TECHNIQUE: Multiple axial images of the cervical spine were obtained without the administration of intravenous and oral contrast. Coronal and sagittal reformatted images were obtained. This CT examination was performed using dose optimization techniques as appropriate, variously including the following: *Automated exposure control *Adjustment of mA and/or kV according to patient size (this includes techniques or standardized protocols for targeted exams where dose is matched to indication/reason for exam; i.e. extremities or head) *Use of iterative reconstruction technique DLP: 801 mGy-cm FINDINGS: There is normal cervical lordosis and spinal alignment. The vertebral bodies and intervertebral disc spaces are unremarkable. The neural foramina are patent. The facet joints are unremarkable. The odontoid process is intact with mild articular degenerative changes. The spinous processes are intact. The cervical soft tissues are unremarkable. No lymphadenopathy. The thyroid gland is unremarkable. The visualized lungs show moderate to severe centrilobular emphysema. CT/CT cervical spine wo con IMPRESSION: 1. Unremarkable cervical spine. No acute abnormality. 2. Incidental moderate to severe centrilobular emphysema in the visualized upper lung lopez. Fleischner guidelines were followed.
--- NOTE | ~2022-04-01 | CT_ITS ---
EXAMINATION: CT HEAD WITHOUT CONTRAST CLINICAL INFORMATION: Weakness status post fall. COMPARISON: None TECHNIQUE: Contiguous axial imaging was performed from the skull base to vertex without intravenous administration of contrast. Coronal and sagittal reformatted images were obtained. This CT examination was performed using dose optimization techniques as appropriate, variously including the following: *Automated exposure control *Adjustment of mA and/or kV according to patient size (this includes techniques or standardized protocols for targeted exams where dose is matched to indication/reason for exam; i.e. extremities or head) *Use of iterative reconstruction technique DLP: 615.53 mGy-cm FINDINGS: There is mild widening of the cortical sulci and associated ventriculomegaly. Mild periventricular microvascular changes are seen. The lateral ventricles are symmetrical. The third and fourth ventricles are in their normal midline position. The basilar and prepontine cisterns are unremarkable. There is no acute intra or extracerebral abnormality. There is no mass effect or midline shift. Sections through the bony calvarium are unremarkable. The orbits are intact. The paranasal sinuses are clear. The mastoid air cells are clear. Mild to moderate mid nasal septal deviation, apex of the right with moderate apical spur. Left jacqueline bullosa. CT/CT head/brain wo con IMPRESSION: No acute intracranial pathology.
--- NOTE | 2022-04-01 10:56 | ECG_ITS ---
Test Reason : ALTERED MENTAL STATUS Blood Pressure : / mmHG Vent. Rate : 086 BPM Atrial Rate : 086 BPM P-R Int : 138 ms QRS Dur : 072 ms QT Int : 398 ms P-R-T Axes : 063 054 048 degrees QTc Int : 476 ms Normal sinus rhythm Normal ECG When compared with ECG of 21-FEB-2022 07:01, No significant change was found Referred By: Claudine Padron Electronically Signed By:LESTER MERCER
--- NOTE | 2022-04-01 11:29 | ED_ITS ---
HPI - Altered Mental Status General Chief Complaint: Altered Mental Status <BRIANNA Vasquez - Last Filed: 04/01/22 20:07> Stated Complaint: FALL 4 DAYS AGO,AMS,WEAK,LETHARGIC PER FAMILY <BRIANNA Vasquez - Last Filed: 04/01/22 20:07> Time Seen by Provider: 04/01/22 10:47 <BRIANNA Vasquez - Last Filed: 04/01/22 20:07> Source: patient, family, EMS and old records reviewed <BRIANNA Vasquez - Last Filed: 04/01/22 20:07> Limitations: altered mental status <BRIANNA Vasquez - Last Filed: 04/01/22 20:07> History of Present Illness HPI narrative: 66 y/o female history of COPD, anxiety, endometriosis, benzodiazepine abuse and dependence who presents to the ER from home via EMS with altered mental status and confusion worsening over the last few days. Per family patient had and unwitnessed fall at home 4 days ago. Her son lives in the apartment below hers and heard a loud noise. He ran downstairs and found his mother naked and covered in urine on the floor next to her bed with all the items on her night side table strewn about. Since then the patient has been acting more confused. He knows that she has been going to benzo withdrawal because she is out of her Klonopin and is not due to get refilled for the next 2 days. He reports that the patient had a friend come over couple days ago and is worried they may have given her some drugs because she was complaining of generalized pain. She has not been asking for Klonopin which is unlike her. She has not been eating or drinking. He does report since the fall she has generally declined physically and mentally. He is worried about taking care for moving forward. <BRIANNA Vasquez - Last Filed: 04/01/22 20:07> MD complaint: altered mental status and confusion <BRIANNA Vasquez - Last Filed: 04/01/22 20:07> Onset (ago): day(s) <BRIANNA Vasquez - Last Filed: 04/01/22 20:07> Timing confirmed by: family member <BRIANNA Vasquez - Last Filed: 04/01/22 20:07> Severity: moderate <BRIANNA Vasquez Last Filed: 04/01/22 20:07> Consistency of symptoms: getting Worse <BRIANNA Vasquez Last Filed: 04/01/22 20:07> Context: drug abuse <BRIANNA Vasquez Last Filed: 04/01/22 20:07> Associated symptoms: loss of appetite, malaise, weakness and incontinence <BRIANNA Vasquez Last Filed: 04/01/22 20:07> Related Data Home Medications: Home Medications Medication Instructions Recorded Confirmed budesonide 90 mcg/actuation breath 2 puff INHALATION BID 04/01/22 04/01/22 activated powder inhaler (Pulmicort Flexhaler) clonazepam 1 mg tablet 1 tab PO DAILY PRN 04/01/22 04/01/22 tiotropium bromide 2.5 2 puff INHALATION DAILY 04/01/22 04/01/22 mcg/actuation mist for inhalation (Spiriva Respimat) Previous Rx's Medication Instructions Recorded albuterol sulfate 90 mcg/actuation 1 inh INHALATION QID PRN #6.7 g 01/19/22 aerosol inhaler (Ventolin HFA) polyethylene glycol 3350 17 17 g PO DAILY PRN #119 g 01/19/22 gram/dose oral powder (Miralax) clonazepam 0.5 mg tablet 0.5 mg PO BEDTIME #1 tab 02/21/22 <BRIANNA Vasquez Last Filed: 04/01/22 20:07> Allergies/Adverse Reactions: Allergies Allergy/AdvReac Type Severity Reaction Status Date / Time No Known Allergies Allergy Verified 02/06/22 11:39 [No Known Allergies*] <BRIANNA Vasquez Last Filed: 04/01/22 20:07> Review of Systems Review of Systems: Constitutional: No Fever, No Chills ENT/Mouth: No sore throat, No Rhinorrhea, No Swallowing Difficulty Cardiovascular: No Chest Pain, No SOB, No Orthopnea, No Edema Respiratory: No Cough, No Sputum, No Wheezing, No dyspnea Gastrointestinal: No Nausea, No Vomiting, No Diarrhea, + abdominal Pain, No Hematochezia, No Melena Genitourinary: No Dysuria, No Urinary Frequency, No Hematuria Musculoskeletal: No joint pain, No Myalgias Skin: No Skin Lesions, No rash Neuro: + Weakness, No Numbness, No Dizziness, No Headache Psych: No Anxiety/Panic, No Depression Heme/Lymph: No Bruising, No Lymphadenopathy Endocrine: No Polyuria, No Polydipsia <BRIANNA Vasquez - Last Filed: 04/01/22 20:07> [facility] Past Medical History Medical History: Medical History Anxiety COPD (chronic obstructive pulmonary disease) Endometriosis <BRIANNA Vasquez - Last Filed: 04/01/22 20:07> Surgical History: Surgical History H/O: hysterectomy <BRIANNA Vasquez - Last Filed: 04/01/22 20:07> Social History Social History: Social History Alcohol intake: never Patient Tobacco Use Status: Former Tobacco user Use of substances other than those prescribed or required for medical reasons: Yes Substance Use Type: Opiates Advance Directives: No Advance Directives Information Provided: No <BRIANNA Vasquez - Last Filed: 04/01/22 20:07> Physical Exam ED Vital Signs: Vital Signs - 24 hr 04/01/22 10:47 04/01/22 12:47 04/01/22 14:05 Temperature 97.7 F 97.7 F Pulse Rate 90 90 90 Respiratory Rate 16 24 H Blood Pressure 137/72 137/72 137/72 Pulse Oximetry 98 99 99 04/01/22 15:28 04/01/22 19:13 04/01/22 21:43 Temperature 98.0 F 97.4 F Pulse Rate 100 98 100 Respiratory Rate 24 H 18 15 Blood Pressure 133/64 161/83 H 174/87 H Pulse Oximetry 95 96 04/01/22 21:52 04/01/22 23:54 04/02/22 03:29 Temperature 97.6 F 98.2 F Pulse Rate 91 86 Respiratory Rate 18 28 H 18 Blood Pressure 150/88 H 155/80 H Pulse Oximetry 95 98 04/02/22 06:00 04/02/22 08:17 Temperature 97.9 F Pulse Rate 87 82 Respiratory Rate 16 18 Blood Pressure 166/91 H 146/85 H Pulse Oximetry 97 96 BMI result Body Mass Index 17.6 <BRIANNA Vasquez - Last Filed: 04/01/22 20:07> Vital Signs - 24 hr 04/01/22 10:47 04/01/22 12:47 04/01/22 14:05 Temperature 97.7 F 97.7 F Pulse Rate 90 90 90 Respiratory Rate 16 24 H Blood Pressure 137/72 137/72 137/72 Pulse Oximetry 98 99 99 04/01/22 15:28 04/01/22 19:13 04/01/22 21:43 Temperature 98.0 F 97.4 F Pulse Rate 100 98 100 Respiratory Rate 24 H 18 15 Blood Pressure 133/64 161/83 H 174/87 H Pulse Oximetry 95 96 04/01/22 21:52 04/01/22 23:54 04/02/22 03:29 Temperature 97.6 F 98.2 F Pulse Rate 91 86 Respiratory Rate 18 28 H 18 Blood Pressure 150/88 H 155/80 H Pulse Oximetry 95 98 04/02/22 06:00 04/02/22 08:17 Temperature 97.9 F Pulse Rate 87 82 Respiratory Rate 16 18 Blood Pressure 166/91 H 146/85 H Pulse Oximetry 97 96 BMI result Body Mass Index 17.6 <BRIANNA Estevez - Last Filed: 04/02/22 10:15> Appearance: Alert, frail female. Oriented X2. No acute distress. Appears older than stated age. Eyes: Pupils equal, round and reactive to light. ENT: Pharynx normal. Neck: Normal inspection. Neck supple. CVS: Normal heart rate and rhythm. Pulses normal. Respiratory: No respiratory distress. Breath sounds normal. Abdomen: Soft with moderate diffuse tenderness throughout. +BS x4 Skin: Skin warm and dry. Normal skin color. Normal skin turgor. No rashes. Extremities: Atraumatic x4, pelvis is stable. Normal passive ROM of the hips and knees. No lower extremity edema. Neuro: Oriented X 2. Generalized weakness throughout, nonfocal <BRIANNA Vasquez - Last Filed: 04/01/22 20:07> Course Course Course Narrative: 66-year-old female with history of COPD, anxiety on chronic benzo diazepines with known abuse and withdrawal who presents to the ER with worsening confusion and failure to thrive at home after an unwitnessed fall at home 4 days ago. Vital signs on arrival are unremarkable. Her exam is significant for confusion, disoriented to time. She is weak and deconditioned. Will check CT scan of her head and neck, basic lab workup, U tox, urinalysis, EKG and follow-up results. <BRIANNA Vasquez - Last Filed: 04/01/22 20:07> Reevaluation(s) Reevaluation #1: Lab workup was unremarkable. No leukocytosis, LFTs are normal. Her urinalysis is not indicative of infection. Her chest x-ray is clear. Her COVID test is negative. Her urinary toxicology is positive for opiates and fentanyl, negative for benzodiazepines. CT of her head is unremarkable. When speaking to the patient and the son - there is concern she is taking medication from a friend who she reports as someone i used to know. She would not elaborate further. Son does not feel safe taking her home with her weakness and confusion. At this time she is hemodyamically stable, no tremors, vomiting diarrhea or concern for active withdrawal from opiates or benzos. Case was discussed with Dr. Peralta. Will place patient in physician observation, get PT consult and Case Management consult. Physician observation started at 14:00. Patient placed in physician observation because patient is awaiting PT evaluation for the possible placement to STR. At the time observation was started patient's vital signs were stable. Patient is alert and oriented. Neuro exam is non-focal. CV: RRR and lungs are clear. Will continue to monitor. <BRIANNA Vasquez - Last Filed: 04/01/22 20:07> Reevaluation #2: [id number] 04/02/2022 Patient to be discharged to [facility] at 11am. Patient's physical examination is unchanged from earlier. <BRIANNA Estevez - Last Filed: 04/02/22 10:15> MDM - Altered Mental Status Medical Records Attestation: I reviewed the patient's medical records. <BRIANNA Vasquez - Last Filed: 04/01/22 20:07> Lab Data Attestation: I reviewed the patient's lab results. <BRIANNA Vasquez - Last Filed: 04/01/22 20:07> Result diagrams: : 04/01/22 11:33 04/02/22 09:03 <BRIANNA Vasquez - Last Filed: 04/01/22 20:07> Labs: Lab Results 04/01/22 04/01/22 04/01/22 Range/Units 11:33 11:33 11:33 WBC 7.1 (4.8-10.8) X10*3/uL RBC 4.75 (4.20-5.50) X10*6/uL Hgb 13.8 (12.0-16.0) g/dl Hct 40.8 (37.0-47.0) % MCV 85.9 (80.0-98.0) fL MCH 29.1 (27.0-33.0) pg MCHC 33.8 (31.0-35.0) g/dl RDW 12.5 (11.0-16.0) % Plt Count 265 (160-400) X10*3/uL MPV 10.1 (9.4-12.3) fL Immature Gran % (Auto) 0.3 (0.0-0.4) % Neut % (Auto) 84.7 H (45-73) % Lymph % (Auto) 10.6 L (20-40) % [place] % (Auto) 3.9 (2-11) % Eos % (Auto) 0.1 (0-4) % Baso % (Auto) 0.4 (0-2) % Lymph # (Auto) 0.8 L (1.2-4.9) X10*3/uL [place] # (Auto) 0.3 (0.1-1.2) X10*3/uL Eos # (Auto) 0.0 (0.0-0.4) X10*3/uL Baso # (Auto) 0.0 (0.0-0.2) X10*3/uL Abs Immat Gran (auto) 0.02 (0.00-0.03) X10*3/uL Absolute Neuts (auto) 6.0 (2.0-8.3) x10*3/uL Absolute Nucleated RBC 0.000 (0.0-0.012) X10*3/uL Nucleated RBC % (auto) 0.0 (0.0-0.2) /100WBC Sodium 138 (135-145) mmol/L Potassium 3.3 D (3.3-5.1) mmol/L Chloride 102 (96-108) mmol/L Carbon Dioxide 27 (22-29) mmol/L Anion Gap 12 (12-20) BUN 17 H (9-16) mg/dL Creatinine 0.68 (0.5-1.4) mg/dL Estim Creat Clear Calc 58.3 Estimated GFR > 60 Random Glucose 98 (60-115) mg/dL Lactic Acid (0.5-2.0) mmol/L Calcium 9.9 (8.4-10.2) mg/dL Magnesium 2.2 (1.6-2.6) mg/dL Total Bilirubin 1.2 H (0.0-1.0) mg/dL Direct Bilirubin 0.5 (0.0-0.5) mg/dL AST 15 (5-31) U/L ALT 13 (0-31) U/L Alkaline Phosphatase 95 D (39-117) U/L Ammonia (13-55) umol/L Total Creatine Kinase (26-140) U/L Troponin I High Sens 6.0 D (<3.5-17.0) ng/L Total Protein 6.8 (6.5-8.0) g/dL Albumin 4.3 (3.5-5.0) g/dL Lipase 21 (8-78) U/L TSH (0.32-4.0) uIU/mL Urine Color Urine Appearance Urine pH (5.0-8.0) Ur Specific [place] (1.005-1.025) Urine Protein (NEG-TRACE) MG/DL Urine Glucose (UA) (NEG) MG/DL Urine Ketones (NEG) MG/DL Urine Blood (NEG) Urine Nitrite (NEG) Ur Leukocyte Esterase (NEG) Urine RBC (0) /HPF Urine WBC (0-4) /HPF Ur Squamous Epith Cells /LPF Urine Bacteria /LPF Urine Opiates Screen (Not Detect) Urine Fentanyl Screen (Not Detect) Ur Barbiturates Screen (Not Detect) Ur Phencyclidine Scrn (Not Detect) Ur Amphetamines Screen (Not Detect) U Benzodiazepines Scrn (Not Detect) Urine Cocaine Screen (Not Detect) U Marijuana (THC) Screen (Not Detect) Ethyl Alcohol mg/dL COVID-19 (ROSA) (Negative) COVID-19 Clin Com Influenza Type A (AMY) (Negative) Influenza Type B (AMY) (Negative) Influenza A & B Note 04/01/22 04/01/22 04/01/22 Range/Units 11:33 11:33 11:33 WBC (4.8-10.8) X10*3/uL RBC (4.20-5.50) X10*6/uL Hgb (12.0-16.0) g/dl Hct (37.0-47.0) % MCV (80.0-98.0) fL MCH (27.0-33.0) pg MCHC (31.0-35.0) g/dl RDW (11.0-16.0) % Plt Count (160-400) X10*3/uL MPV (9.4-12.3) fL Immature Gran % (Auto) (0.0-0.4) % Neut % (Auto) (45-73) % Lymph % (Auto) (20-40) % [place] % (Auto) (2-11) % Eos % (Auto) (0-4) % Baso % (Auto) (0-2) % Lymph # (Auto) (1.2-4.9) X10*3/uL [place] # (Auto) (0.1-1.2) X10*3/uL Eos # (Auto) (0.0-0.4) X10*3/uL Baso # (Auto) (0.0-0.2) X10*3/uL Abs Immat Gran (auto) (0.00-0.03) X10*3/uL Absolute Neuts (auto) (2.0-8.3) x10*3/uL Absolute Nucleated RBC (0.0-0.012) X10*3/uL Nucleated RBC % (auto) (0.0-0.2) /100WBC Sodium (135-145) mmol/L Potassium (3.3-5.1) mmol/L Chloride (96-108) mmol/L Carbon Dioxide (22-29) mmol/L Anion Gap (12-20) BUN (9-16) mg/dL Creatinine (0.5-1.4) mg/dL Estim Creat Clear Calc Estimated GFR Random Glucose (60-115) mg/dL Lactic Acid (0.5-2.0) mmol/L Calcium (8.4-10.2) mg/dL Magnesium (1.6-2.6) mg/dL Total Bilirubin (0.0-1.0) mg/dL Direct Bilirubin (0.0-0.5) mg/dL AST (5-31) U/L ALT (0-31) U/L Alkaline Phosphatase (39-117) U/L Ammonia 15 (13-55) umol/L Total Creatine Kinase 101 (26-140) U/L Troponin I High Sens (<3.5-17.0) ng/L Total Protein (6.5-8.0) g/dL Albumin (3.5-5.0) g/dL Lipase (8-78) U/L TSH 0.38 (0.32-4.0) uIU/mL Urine Color Urine Appearance Urine pH (5.0-8.0) Ur Specific [place] (1.005-1.025) Urine Protein (NEG-TRACE) MG/DL Urine Glucose (UA) (NEG) MG/DL Urine Ketones (NEG) MG/DL Urine Blood (NEG) Urine Nitrite (NEG) Ur Leukocyte Esterase (NEG) Urine RBC (0) /HPF Urine WBC (0-4) /HPF Ur Squamous Epith Cells /LPF Urine Bacteria /LPF Urine Opiates Screen (Not Detect) Urine Fentanyl Screen (Not Detect) Ur Barbiturates Screen (Not Detect) Ur Phencyclidine Scrn (Not Detect) Ur Amphetamines Screen (Not Detect) U Benzodiazepines Scrn (Not Detect) Urine Cocaine Screen (Not Detect) U Marijuana (THC) Screen (Not Detect) Ethyl Alcohol mg/dL COVID-19 (ROSA) Negative (Negative) COVID-19 Clin Com See Note Influenza Type A (AMY) (Negative) Influenza Type B (AMY) (Negative) Influenza A & B Note 04/01/22 04/01/22 04/01/22 Range/Units 11:33 11:33 11:34 WBC (4.8-10.8) X10*3/uL RBC (4.20-5.50) X10*6/uL Hgb (12.0-16.0) g/dl Hct (37.0-47.0) % MCV (80.0-98.0) fL MCH (27.0-33.0) pg MCHC (31.0-35.0) g/dl RDW (11.0-16.0) % Plt Count (160-400) X10*3/uL MPV (9.4-12.3) fL Immature Gran % (Auto) (0.0-0.4) % Neut % (Auto) (45-73) % Lymph % (Auto) (20-40) % [place] % (Auto) (2-11) % Eos % (Auto) (0-4) % Baso % (Auto) (0-2) % Lymph # (Auto) (1.2-4.9) X10*3/uL [place] # (Auto) (0.1-1.2) X10*3/uL Eos # (Auto) (0.0-0.4) X10*3/uL Baso # (Auto) (0.0-0.2) X10*3/uL Abs Immat Gran (auto) (0.00-0.03) X10*3/uL Absolute Neuts (auto) (2.0-8.3) x10*3/uL Absolute Nucleated RBC (0.0-0.012) X10*3/uL Nucleated RBC % (auto) (0.0-0.2) /100WBC Sodium (135-145) mmol/L Potassium (3.3-5.1) mmol/L Chloride (96-108) mmol/L Carbon Dioxide (22-29) mmol/L Anion Gap (12-20) BUN (9-16) mg/dL Creatinine (0.5-1.4) mg/dL Estim Creat Clear Calc Estimated GFR Random Glucose (60-115) mg/dL Lactic Acid 0.9 (0.5-2.0) mmol/L Calcium (8.4-10.2) mg/dL Magnesium (1.6-2.6) mg/dL Total Bilirubin (0.0-1.0) mg/dL Direct Bilirubin (0.0-0.5) mg/dL AST (5-31) U/L ALT (0-31) U/L Alkaline Phosphatase (39-117) U/L Ammonia (13-55) umol/L Total Creatine Kinase (26-140) U/L Troponin I High Sens (<3.5-17.0) ng/L Total Protein (6.5-8.0) g/dL Albumin (3.5-5.0) g/dL Lipase (8-78) U/L TSH (0.32-4.0) uIU/mL Urine Color Urine Appearance Urine pH (5.0-8.0) Ur Specific [place] (1.005-1.025) Urine Protein (NEG-TRACE) MG/DL Urine Glucose (UA) (NEG) MG/DL Urine Ketones (NEG) MG/DL Urine Blood (NEG) Urine Nitrite (NEG) Ur Leukocyte Esterase (NEG) Urine RBC (0) /HPF Urine WBC (0-4) /HPF Ur Squamous Epith Cells /LPF Urine Bacteria /LPF Urine Opiates Screen (Not Detect) Urine Fentanyl Screen (Not Detect) Ur Barbiturates Screen (Not Detect) Ur Phencyclidine Scrn (Not Detect) Ur Amphetamines Screen (Not Detect) U Benzodiazepines Scrn (Not Detect) Urine Cocaine Screen (Not Detect) U Marijuana (THC) Screen (Not Detect) Ethyl Alcohol < 10 mg/dL COVID-19 (ROSA) (Negative) COVID-19 Clin Com Influenza Type A (AMY) Negative (Negative) Influenza Type B (AMY) Negative (Negative) Influenza A & B Note See Note 04/01/22 04/01/22 04/02/22 Range/Units 12:48 12:48 09:03 WBC (4.8-10.8) X10*3/uL RBC (4.20-5.50) X10*6/uL Hgb (12.0-16.0) g/dl Hct (37.0-47.0) % MCV (80.0-98.0) fL MCH (27.0-33.0) pg MCHC (31.0-35.0) g/dl RDW (11.0-16.0) % Plt Count (160-400) X10*3/uL MPV (9.4-12.3) fL Immature Gran % (Auto) (0.0-0.4) % Neut % (Auto) (45-73) % Lymph % (Auto) (20-40) % [place] % (Auto) (2-11) % Eos % (Auto) (0-4) % Baso % (Auto) (0-2) % Lymph # (Auto) (1.2-4.9) X10*3/uL [place] # (Auto) (0.1-1.2) X10*3/uL Eos # (Auto) (0.0-0.4) X10*3/uL Baso # (Auto) (0.0-0.2) X10*3/uL Abs Immat Gran (auto) (0.00-0.03) X10*3/uL Absolute Neuts (auto) (2.0-8.3) x10*3/uL Absolute Nucleated RBC (0.0-0.012) X10*3/uL Nucleated RBC % (auto) (0.0-0.2) /100WBC Sodium (135-145) mmol/L Potassium (3.3-5.1) mmol/L Chloride (96-108) mmol/L Carbon Dioxide (22-29) mmol/L Anion Gap (12-20) BUN (9-16) mg/dL Creatinine 0.68 (0.5-1.4) mg/dL Estim Creat Clear Calc 58.3 Estimated GFR > 60 Random Glucose (60-115) mg/dL Lactic Acid (0.5-2.0) mmol/L Calcium (8.4-10.2) mg/dL Magnesium (1.6-2.6) mg/dL Total Bilirubin (0.0-1.0) mg/dL Direct Bilirubin (0.0-0.5) mg/dL AST (5-31) U/L ALT (0-31) U/L Alkaline Phosphatase (39-117) U/L Ammonia (13-55) umol/L Total Creatine Kinase (26-140) U/L Troponin I High Sens (<3.5-17.0) ng/L Total Protein (6.5-8.0) g/dL Albumin (3.5-5.0) g/dL Lipase (8-78) U/L TSH (0.32-4.0) uIU/mL Urine Color YELLOW Urine Appearance HAZY Urine pH 6.0 (5.0-8.0) Ur Specific [place] 1.025 (1.005-1.025) Urine Protein NEG (NEG-TRACE) MG/DL Urine Glucose (UA) NEG (NEG) MG/DL Urine Ketones 40 (NEG) MG/DL Urine Blood 1+ H (NEG) Urine Nitrite NEG (NEG) Ur Leukocyte Esterase NEG (NEG) Urine RBC 1-4 (0) /HPF Urine WBC 0-2 (0-4) /HPF Ur Squamous Epith Cells 1+ /LPF Urine Bacteria NONE /LPF Urine Opiates Screen POSITIVE H (Not Detect) Urine Fentanyl Screen POSITIVE H (Not Detect) Ur Barbiturates Screen Not Detected (Not Detect) Ur Phencyclidine Scrn Not Detected (Not Detect) Ur Amphetamines Screen Not Detected (Not Detect) U Benzodiazepines Scrn Not Detected (Not Detect) Urine Cocaine Screen Not Detected (Not Detect) U Marijuana (THC) Screen Not Detected (Not Detect) Ethyl Alcohol mg/dL COVID-19 (ROSA) (Negative) COVID-19 Clin Com Influenza Type A (AMY) (Negative) Influenza Type B (AMY) (Negative) Influenza A & B Note <BRIANNA Vasquez - Last Filed: 04/01/22 20:07> Lab Results 04/01/22 04/01/22 04/01/22 Range/Units 11:33 11:33 11:33 WBC 7.1 (4.8-10.8) X10*3/uL RBC 4.75 (4.20-5.50) X10*6/uL Hgb 13.8 (12.0-16.0) g/dl Hct 40.8 (37.0-47.0) % MCV 85.9 (80.0-98.0) fL MCH 29.1 (27.0-33.0) pg MCHC 33.8 (31.0-35.0) g/dl RDW 12.5 (11.0-16.0) % Plt Count 265 (160-400) X10*3/uL MPV 10.1 (9.4-12.3) fL Immature Gran % (Auto) 0.3 (0.0-0.4) % Neut % (Auto) 84.7 H (45-73) % Lymph % (Auto) 10.6 L (20-40) % [place] % (Auto) 3.9 (2-11) % Eos % (Auto) 0.1 (0-4) % Baso % (Auto) 0.4 (0-2) % Lymph # (Auto) 0.8 L (1.2-4.9) X10*3/uL [place] # (Auto) 0.3 (0.1-1.2) X10*3/uL Eos # (Auto) 0.0 (0.0-0.4) X10*3/uL Baso # (Auto) 0.0 (0.0-0.2) X10*3/uL Abs Immat Gran (auto) 0.02 (0.00-0.03) X10*3/uL Absolute Neuts (auto) 6.0 (2.0-8.3) x10*3/uL Absolute Nucleated RBC 0.000 (0.0-0.012) X10*3/uL Nucleated RBC % (auto) 0.0 (0.0-0.2) /100WBC Sodium 138 (135-145) mmol/L Potassium 3.3 D (3.3-5.1) mmol/L Chloride 102 (96-108) mmol/L Carbon Dioxide 27 (22-29) mmol/L Anion Gap 12 (12-20) BUN 17 H (9-16) mg/dL Creatinine 0.68 (0.5-1.4) mg/dL Estim Creat Clear Calc 58.3 Estimated GFR > 60 Random Glucose 98 (60-115) mg/dL Lactic Acid (0.5-2.0) mmol/L Calcium 9.9 (8.4-10.2) mg/dL Magnesium 2.2 (1.6-2.6) mg/dL Total Bilirubin 1.2 H (0.0-1.0) mg/dL Direct Bilirubin 0.5 (0.0-0.5) mg/dL AST 15 (5-31) U/L ALT 13 (0-31) U/L Alkaline Phosphatase 95 D (39-117) U/L Ammonia (13-55) umol/L Total Creatine Kinase (26-140) U/L Troponin I High Sens 6.0 D (<3.5-17.0) ng/L Total Protein 6.8 (6.5-8.0) g/dL Albumin 4.3 (3.5-5.0) g/dL Lipase 21 (8-78) U/L TSH (0.32-4.0) uIU/mL Urine Color Urine Appearance Urine pH (5.0-8.0) Ur Specific [place] (1.005-1.025) Urine Protein (NEG-TRACE) MG/DL Urine Glucose (UA) (NEG) MG/DL Urine Ketones (NEG) MG/DL Urine Blood (NEG) Urine Nitrite (NEG) Ur Leukocyte Esterase (NEG) Urine RBC (0) /HPF Urine WBC (0-4) /HPF Ur Squamous Epith Cells /LPF Urine Bacteria /LPF Urine Opiates Screen (Not Detect) Urine Fentanyl Screen (Not Detect) Ur Barbiturates Screen (Not Detect) Ur Phencyclidine Scrn (Not Detect) Ur Amphetamines Screen (Not Detect) U Benzodiazepines Scrn (Not Detect) Urine Cocaine Screen (Not Detect) U Marijuana (THC) Screen (Not Detect) Ethyl Alcohol mg/dL COVID-19 (ROSA) (Negative) COVID-19 Clin Com Influenza Type A (AMY) (Negative) Influenza Type B (AMY) (Negative) Influenza A & B Note 04/01/22 04/01/22 04/01/22 Range/Units 11:33 11:33 11:33 WBC (4.8-10.8) X10*3/uL RBC (4.20-5.50) X10*6/uL Hgb (12.0-16.0) g/dl Hct (37.0-47.0) % MCV (80.0-98.0) fL MCH (27.0-33.0) pg MCHC (31.0-35.0) g/dl RDW (11.0-16.0) % Plt Count (160-400) X10*3/uL MPV (9.4-12.3) fL Immature Gran % (Auto) (0.0-0.4) % Neut % (Auto) (45-73) % Lymph % (Auto) (20-40) % [place] % (Auto) (2-11) % Eos % (Auto) (0-4) % Baso % (Auto) (0-2) % Lymph # (Auto) (1.2-4.9) X10*3/uL [place] # (Auto) (0.1-1.2) X10*3/uL Eos # (Auto) (0.0-0.4) X10*3/uL Baso # (Auto) (0.0-0.2) X10*3/uL Abs Immat Gran (auto) (0.00-0.03) X10*3/uL Absolute Neuts (auto) (2.0-8.3) x10*3/uL Absolute Nucleated RBC (0.0-0.012) X10*3/uL Nucleated RBC % (auto) (0.0-0.2) /100WBC Sodium (135-145) mmol/L Potassium (3.3-5.1) mmol/L Chloride (96-108) mmol/L Carbon Dioxide (22-29) mmol/L Anion Gap (12-20) BUN (9-16) mg/dL Creatinine (0.5-1.4) mg/dL Estim Creat Clear Calc Estimated GFR Random Glucose (60-115) mg/dL Lactic Acid (0.5-2.0) mmol/L Calcium (8.4-10.2) mg/dL Magnesium (1.6-2.6) mg/dL Total Bilirubin (0.0-1.0) mg/dL Direct Bilirubin (0.0-0.5) mg/dL AST (5-31) U/L ALT (0-31) U/L Alkaline Phosphatase (39-117) U/L Ammonia 15 (13-55) umol/L Total Creatine Kinase 101 (26-140) U/L Troponin I High Sens (<3.5-17.0) ng/L Total Protein (6.5-8.0) g/dL Albumin (3.5-5.0) g/dL Lipase (8-78) U/L TSH 0.38 (0.32-4.0) uIU/mL Urine Color Urine Appearance Urine pH (5.0-8.0) Ur Specific [place] (1.005-1.025) Urine Protein (NEG-TRACE) MG/DL Urine Glucose (UA) (NEG) MG/DL Urine Ketones (NEG) MG/DL Urine Blood (NEG) Urine Nitrite (NEG) Ur Leukocyte Esterase (NEG) Urine RBC (0) /HPF Urine WBC (0-4) /HPF Ur Squamous Epith Cells /LPF Urine Bacteria /LPF Urine Opiates Screen (Not Detect) Urine Fentanyl Screen (Not Detect) Ur Barbiturates Screen (Not Detect) Ur Phencyclidine Scrn (Not Detect) Ur Amphetamines Screen (Not Detect) U Benzodiazepines Scrn (Not Detect) Urine Cocaine Screen (Not Detect) U Marijuana (THC) Screen (Not Detect) Ethyl Alcohol mg/dL COVID-19 (ROSA) Negative (Negative) COVID-19 Clin Com See Note Influenza Type A (AMY) (Negative) Influenza Type B (AMY) (Negative) Influenza A & B Note 04/01/22 04/01/22 04/01/22 Range/Units 11:33 11:33 11:34 WBC (4.8-10.8) X10*3/uL RBC (4.20-5.50) X10*6/uL Hgb (12.0-16.0) g/dl Hct (37.0-47.0) % MCV (80.0-98.0) fL MCH (27.0-33.0) pg MCHC (31.0-35.0) g/dl RDW (11.0-16.0) % Plt Count (160-400) X10*3/uL MPV (9.4-12.3) fL Immature Gran % (Auto) (0.0-0.4) % Neut % (Auto) (45-73) % Lymph % (Auto) (20-40) % [place] % (Auto) (2-11) % Eos % (Auto) (0-4) % Baso % (Auto) (0-2) % Lymph # (Auto) (1.2-4.9) X10*3/uL [place] # (Auto) (0.1-1.2) X10*3/uL Eos # (Auto) (0.0-0.4) X10*3/uL Baso # (Auto) (0.0-0.2) X10*3/uL Abs Immat Gran (auto) (0.00-0.03) X10*3/uL Absolute Neuts (auto) (2.0-8.3) x10*3/uL Absolute Nucleated RBC (0.0-0.012) X10*3/uL Nucleated RBC % (auto) (0.0-0.2) /100WBC Sodium (135-145) mmol/L Potassium (3.3-5.1) mmol/L Chloride (96-108) mmol/L Carbon Dioxide (22-29) mmol/L Anion Gap (12-20) BUN (9-16) mg/dL Creatinine (0.5-1.4) mg/dL Estim Creat Clear Calc Estimated GFR Random Glucose (60-115) mg/dL Lactic Acid 0.9 (0.5-2.0) mmol/L Calcium (8.4-10.2) mg/dL Magnesium (1.6-2.6) mg/dL Total Bilirubin (0.0-1.0) mg/dL Direct Bilirubin (0.0-0.5) mg/dL AST (5-31) U/L ALT (0-31) U/L Alkaline Phosphatase (39-117) U/L Ammonia (13-55) umol/L Total Creatine Kinase (26-140) U/L Troponin I High Sens (<3.5-17.0) ng/L Total Protein (6.5-8.0) g/dL Albumin (3.5-5.0) g/dL Lipase (8-78) U/L TSH (0.32-4.0) uIU/mL Urine Color Urine Appearance Urine pH (5.0-8.0) Ur Specific [place] (1.005-1.025) Urine Protein (NEG-TRACE) MG/DL Urine Glucose (UA) (NEG) MG/DL Urine Ketones (NEG) MG/DL Urine Blood (NEG) Urine Nitrite (NEG) Ur Leukocyte Esterase (NEG) Urine RBC (0) /HPF Urine WBC (0-4) /HPF Ur Squamous Epith Cells /LPF Urine Bacteria /LPF Urine Opiates Screen (Not Detect) Urine Fentanyl Screen (Not Detect) Ur Barbiturates Screen (Not Detect) Ur Phencyclidine Scrn (Not Detect) Ur Amphetamines Screen (Not Detect) U Benzodiazepines Scrn (Not Detect) Urine Cocaine Screen (Not Detect) U Marijuana (THC) Screen (Not Detect) Ethyl Alcohol < 10 mg/dL COVID-19 (ROSA) (Negative) COVID-19 Clin Com Influenza Type A (AMY) Negative (Negative) Influenza Type B (AMY) Negative (Negative) Influenza A & B Note See Note 04/01/22 04/01/22 04/02/22 Range/Units 12:48 12:48 09:03 WBC (4.8-10.8) X10*3/uL RBC (4.20-5.50) X10*6/uL Hgb (12.0-16.0) g/dl Hct (37.0-47.0) % MCV (80.0-98.0) fL MCH (27.0-33.0) pg MCHC (31.0-35.0) g/dl RDW (11.0-16.0) % Plt Count (160-400) X10*3/uL MPV (9.4-12.3) fL Immature Gran % (Auto) (0.0-0.4) % Neut % (Auto) (45-73) % Lymph % (Auto) (20-40) % [place] % (Auto) (2-11) % Eos % (Auto) (0-4) % Baso % (Auto) (0-2) % Lymph # (Auto) (1.2-4.9) X10*3/uL [place] # (Auto) (0.1-1.2) X10*3/uL Eos # (Auto) (0.0-0.4) X10*3/uL Baso # (Auto) (0.0-0.2) X10*3/uL Abs Immat Gran (auto) (0.00-0.03) X10*3/uL Absolute Neuts (auto) (2.0-8.3) x10*3/uL Absolute Nucleated RBC (0.0-0.012) X10*3/uL Nucleated RBC % (auto) (0.0-0.2) /100WBC Sodium (135-145) mmol/L Potassium (3.3-5.1) mmol/L Chloride (96-108) mmol/L Carbon Dioxide (22-29) mmol/L Anion Gap (12-20) BUN (9-16) mg/dL Creatinine 0.68 (0.5-1.4) mg/dL Estim Creat Clear Calc 58.3 Estimated GFR > 60 Random Glucose (60-115) mg/dL Lactic Acid (0.5-2.0) mmol/L Calcium (8.4-10.2) mg/dL Magnesium (1.6-2.6) mg/dL Total Bilirubin (0.0-1.0) mg/dL Direct Bilirubin (0.0-0.5) mg/dL AST (5-31) U/L ALT (0-31) U/L Alkaline Phosphatase (39-117) U/L Ammonia (13-55) umol/L Total Creatine Kinase (26-140) U/L Troponin I High Sens (<3.5-17.0) ng/L Total Protein (6.5-8.0) g/dL Albumin (3.5-5.0) g/dL Lipase (8-78) U/L TSH (0.32-4.0) uIU/mL Urine Color YELLOW Urine Appearance HAZY Urine pH 6.0 (5.0-8.0) Ur Specific [place] 1.025 (1.005-1.025) Urine Protein NEG (NEG-TRACE) MG/DL Urine Glucose (UA) NEG (NEG) MG/DL Urine Ketones 40 (NEG) MG/DL Urine Blood 1+ H (NEG) Urine Nitrite NEG (NEG) Ur Leukocyte Esterase NEG (NEG) Urine RBC 1-4 (0) /HPF Urine WBC 0-2 (0-4) /HPF Ur Squamous Epith Cells 1+ /LPF Urine Bacteria NONE /LPF Urine Opiates Screen POSITIVE H (Not Detect) Urine Fentanyl Screen POSITIVE H (Not Detect) Ur Barbiturates Screen Not Detected (Not Detect) Ur Phencyclidine Scrn Not Detected (Not Detect) Ur Amphetamines Screen Not Detected (Not Detect) U Benzodiazepines Scrn Not Detected (Not Detect) Urine Cocaine Screen Not Detected (Not Detect) U Marijuana (THC) Screen Not Detected (Not Detect) Ethyl Alcohol mg/dL COVID-19 (ROSA) (Negative) COVID-19 Clin Com Influenza Type A (AMY) (Negative) Influenza Type B (AMY) (Negative) Influenza A & B Note <BRIANNA Estevez - Last Filed: 04/02/22 10:15> ECG Data ECG #1: Attestation: I personally reviewed and interpreted this ECG as follows: <BRIANNA Vasquez - Last Filed: 04/01/22 20:07> ECG interpretation date: 04/01/22 <BRIANNA Vasquez Last Filed: 04/01/22 20:07> ECG interpretation time: 13:26 <BRIANNA Vasquez - Last Filed: 04/01/22 20:07> Prior ECG tracings: available for review <BRIANNA Vasquez Last Filed: 04/01/22 20:07> Interpretation: #1 Normal sinus rhythm, heart rate 89 beats per minute, normal UT interval common no ST segment elevations or depressions, some artifact is present. #2 Sinus tachycardia with PACs, heart rate 111. No ST depressions or elevations <BRIANNA Vasquez Last Filed: 04/01/22 20:07> Critical Care Time Critical Care Time Critical Care Time: No <BRIANNA Vasquez Last Filed: 04/01/22 20:07> Discharge Plan Discharge Clinical Impression: Polysubstance abuse, Adult failure to thrive <BRIANNA Vasquez Last Filed: 04/01/22 20:07> Patient Disposition: Still a Patient <BRIANNA Vasquez Last Filed: 04/01/22 20:07> Prescriptions: No [facility] polyethylene glycol 3350 [Miralax] 17 gram/dose powder 17 g PO DAILY PRN (Reason: constipation) Qty: 119 0RF albuterol sulfate [Ventolin HFA] 90 mcg/actuation HFA aerosol inhaler 1 inh inhalation QID PRN (Reason: shortness of breath or wheezing) Qty: 6.7 0RF clonazepam 0.5 mg tablet 0.5 mg PO BEDTIME Qty: 1 0RF Rx Instructions: administer 30 minutes before bedtime clonazepam 1 mg tablet 1 tab PO DAILY PRN (Reason: Anxiety) 0RF Pulmicort Flexhaler 90 mcg/actuation aerosol powdr breath activated 2 puff inhalation BID 0RF Spiriva Respimat 2.5 mcg/actuation mist 2 puff inhalation DAILY 0RF <BRIANNA Vasquez Last Filed: 04/01/22 20:07> Referrals: [facility] [Outside] <BRIANNA Vasquez Last Filed: 04/01/22 20:07>
[2022-04-01 11:40] LABS: MANUAL DIFF FLAG NO
[2022-04-01 11:43] LABS: Basophils Percent Auto 0.4 % (0-2); Eosinophils Percent Auto 0.1 % (0-4); Hematocrit 40.8 % (37.0-47.0); Hemoglobin 13.8 g/dl (12.0-16.0); Imm Gran Abs Auto 0.02 X10*3/uL (0.00-0.03); Imm Gran Pct Auto 0.3 % (0.0-0.4); Lymphocytes Absolute Auto 0.8 X10*3/uL (1.2-4.9); Lymphocytes Percent Auto 10.6 % (20-40); Mean Corpuscular HGB Conc 33.8 g/dl (31.0-35.0); Mean Corpuscular Hemoglobin 29.1 pg (27.0-33.0); Mean Corpuscular Volume 85.9 fL (80.0-98.0); Mean Platelet Volume 10.1 fL (9.4-12.3); Monocytes Absolute Auto 0.3 X10*3/uL (0.1-1.2); Monocytes Percent Auto 3.9 % (2-11); Neutrophils Percent Auto 84.7 % (45-73); Platelet Count 265 X10*3/uL (160-400); Red Blood Count 4.75 X10*6/uL (4.20-5.50); Red Cell Distribution Width 12.5 % (11.0-16.0); White Blood Count 7.1 X10*3/uL (4.8-10.8)
[2022-04-01 11:49] LABS: Ammonia 15 umol/L (13-55)
[2022-04-01 11:53] LABS: Lactic Acid 0.9 mmol/L (0.5-2.0)
[2022-04-01 11:57] LABS: Ethanol < 10 mg/dL
[2022-04-01 11:58] LABS: COVID-19 Test Negative (Negative); IDNOW Serial# 08D9AD1C
[2022-04-01 11:59] LABS: Influenza A Negative (Negative); Influenza B2 Negative (Negative)
[2022-04-01 12:02] LABS: Alanine Aminotransferase 13 U/L (0-31); Albumin Level 4.3 g/dL (3.5-5.0); Alkaline Phosphatase 95 U/L (39-117); Anion Gap 12 (12-20); Aspartate Amino Transferase 15 U/L (5-31); Bilirubin Direct 0.5 mg/dL (0.0-0.5); Bilirubin Total 1.2 mg/dL (0.0-1.0); Blood Urea Nitrogen 17 mg/dL (9-16); Calcium 9.9 mg/dL (8.4-10.2); Carbon Dioxide 27 mmol/L (22-29); Chloride 102 mmol/L (96-108); Creatinine Clr Calc Pharmacy 58.3; Estimated Glomerular Filt Rate > 60; Glucose Random 98 mg/dL (60-115); Lipase 21 U/L (8-78); Magnesium 2.2 mg/dL (1.6-2.6); Potassium 3.3 mmol/L (3.3-5.1); Sodium 138 mmol/L (135-145); Total Protein 6.8 g/dL (6.5-8.0)
[2022-04-01 12:24] LABS: TSH reflex Free T4 0.38 uIU/mL (0.32-4.0)
[2022-04-01 12:58] LABS: Appearance Urine HAZY; Color Urine YELLOW; Glucose Urine UA NEG (NEG); Leukocyte Esterase Urine NEG (NEG); Nitrite Urine NEG (NEG); Specific Gravity - Urine 1.025 (1.005-1.025); UACC Culture Trigger NO; Urine Blood 1+ (NEG); Urine Ketones 40 MG/DL (NEG); Urine Protein NEG (NEG-TRACE)
[2022-04-01 13:12] LABS: Amphetamine Screen Urine Not Detected (Not Detect); Barbiturates, Urine Not Detected (Not Detect); Benzodiazepines Screen Urine Not Detected (Not Detect); Cannabinoid Screen Urine Not Detected (Not Detect); Cocaine Screen Urine Not Detected (Not Detect); Fentanyl, urine POSITIVE (Not Detect); Opiate Screen Urine POSITIVE (Not Detect); Phencyclidine Screen Urine Not Detected (Not Detect)
[2022-04-01 13:14] LABS: Squamous Epithelial Cell Urine 1+ /LPF; WBC Urine 0-2 /HPF (0-4)
--- NOTE | 2022-04-01 14:16 | PHA.MEDREC ---
Pharmacy Consult ? Medication Reconciliation Pharmacy has completed the medication reconciliation. spoke with son and pt. Son reports pt last took her clonazepam about 3 days ago. Is unsure about her inhalers. Son states that mom has been known to take too much clonazepam before, but also recently threw out a bunch of her medication by accident. He states Carly needs someone to take over control of her medications for her.
--- NOTE | 2022-04-01 14:51 | ECG_ITS ---
Test Reason : ARRHYTHMIA Blood Pressure : / mmHG Vent. Rate : 111 BPM Atrial Rate : 111 BPM P-R Int : 126 ms QRS Dur : 080 ms QT Int : 344 ms P-R-T Axes : 033 050 -03 degrees QTc Int : 467 ms Sinus tachycardia with Premature atrial complexes Nonspecific ST and T wave abnormality Abnormal ECG When compared with ECG of 01-APR-2022 11:14, Premature atrial complexes are now Present ST now depressed in Inferior leads T wave inversion now evident in Inferior leads Referred By: Claudine Padron Electronically Signed By:LESTER MERCER
--- NOTE | 2022-04-01 15:02 | MHC.CM.ED ---
Addendum entered by Bonnie Sotomayor 04/01/22 15:11: No bed offers made within 20 miles of patient's residence. Referral broadcasted within 50 miles of patient's residence. Original Note: Received case management consult from Claudine REED. Patient came to ER due to a fall. Work up essentially negative. Physically therapy eval completed. Attempted to meet with patient in regards to discharge planning. Patient currently receiving care. Spoke with patient's son, Lino via telephone at [phone]. Patient lives at home with her 3 sons, ambulates independently and had no services prior to coming to the hospital. Copy of HCP obtained from [facility]. Patient has not received any Covid vaccines. Patient has been to [facility] in the past. Lino aware that patient is not vaccinated she may be difficult to place. Lino agreeable to referral being broadcasted in [facility]. Continue to monitor for d/c needs.
--- NOTE | 2022-04-01 19:16 | PC.NURSE ---
Addendum entered by Roselia Chung 04/02/22 06:49: Report given to KRUPA Villeda Original Note: report received from KRUPA Valladares pt is alert and oriented x2. resting in bed, on continuos cardiac monitoring. denies any chest pain or sob.
[2022-04-02 03:29] VITALS: BP 155/80; PULSE 86; RESP 18; TEMP 36.8; O2SAT 98
[2022-04-02 06:00] VITALS: BP 166/91; PULSE 87; RESP 16; TEMP 36.6; O2SAT 97
[2022-04-02 08:17] VITALS: BP 146/85; PULSE 82; RESP 18; O2SAT 96
[2022-04-02 09:20] LABS: Creatinine Clr Calc Pharmacy 58.3; Estimated Glomerular Filt Rate > 60
--- NOTE | 2022-04-02 10:08 | MHC.CM.ED ---
Patient remains in ER. [facility] is only facility willing to offer a bed. Spoke with Lino via telephone at [phone]. They accept bed. Per [facility], patient can leave at 11am. [facility] booked. Med [facility] with chart. Patient, Christiana Huynh RN and Dalryn REED aware. PASRR Level 1 completed and uploaded to [facility]. MDS completed[facility] Continue to monitor for d/c needs.
[2022-04-02] MEDS: Budesonide 180 MCG AER.POW.BA 1 PUFF INHALE (10:33)
[2022-04-02 10:37] VITALS: PULSE 86; RESP 16; O2SAT 96
== END 2022-04-02 11:22 | disposition skilled nursing facility (03) ==
PROVIDERS: Physician Assistant; Emergency Provider Emergency Medicine; PCP Internal Medicine
DX: R53.1 Weakness (principal); R41.82 Altered mental status, unspecified; J44.9 Chronic obstructive pulmonary disease, unspecified; M54.2 Cervicalgia; R51.9 Headache, unspecified; R06.02 Shortness of breath; T42.4X5A Adverse effect of benzodiazepines, initial encounter; Y92.9 Unspecified place or not applicable; R63.0 Anorexia; Z20.822 Contact with and (suspected) exposure to COVID-19; R53.81 Other malaise; Z79.899 Other long term (current) drug therapy; Z87.891 Personal history of nicotine dependence
CPT/HCPCS: 36415; 70450; 71045; 72125; 80048; 80076; 80307; 81001; 81003; 82077; 82140; 82550; 82565; 83605; 83690; 83735; 84443; 84484; 85025; 87040; 87502; 87635; 93005; 94640; 97162; 99284; 99285

== ENCOUNTER 2022-06-01 05:50 | Emergency (ER) | payer MEDICARE, MEDICAID, SELFPAY ==
--- NOTE | ~2022-06-01 | XR_ITS ---
EXAMINATION: XR LUMBOSACRAL SPINE CLINICAL INFORMATION: Back pain status post heavy lifting COMPARISON: January 10, [address] abdomen of February 06, 2022 TECHNIQUE: Three views of the lumbosacral spine. FINDINGS: There is osteopenia visualized bones. There is a stable mild compression fracture of the superior endplate of L4 without significant loss of height. There is a stable superior endplate compression fracture of L2 without significant loss of height. There appears to be a new mild inferior endplate compression fracture of L1 without significant loss of height. Some of the appearance is probably related to angulation of the beam at this level. No spondylolisthesis or spondylolysis is appreciated. Disc spaces are maintained. Prominent abdominal aortic calcifications are evident. There is a large amount of stool and gas throughout the bowel making evaluation of the sacroiliac joints and lower lumbar spine difficult on AP view. XR/XR lumbar spine 2-3V IMPRESSION: Diffuse osteopenia. New mild inferior endplate compression fracture of L1 without significant loss of height. Other stable endplate fractures as described.
[2022-06-01 06:20] VITALS: BP 138/86; PULSE 90; O2SAT 96
[2022-06-01 06:21] VITALS: BP 137/87; PULSE 104; RESP 20; TEMP 36.8; O2SAT 94; BMI 16.2
[2022-06-01 06:49] LABS: Hematocrit 40.4 % (37.0-47.0); Hemoglobin 13.2 g/dl (12.0-16.0); Mean Corpuscular HGB Conc 32.7 g/dl (31.0-35.0); Mean Corpuscular Hemoglobin 28.9 pg (27.0-33.0); Mean Corpuscular Volume 88.4 fL (80.0-98.0); Mean Platelet Volume 9.6 fL (9.4-12.3); Platelet Count 293 X10*3/uL (160-400); Red Blood Count 4.57 X10*6/uL (4.20-5.50); Red Cell Distribution Width 13.4 % (11.0-16.0)
[2022-06-01 07:03] LABS: Alanine Aminotransferase 14 U/L (0-31); Albumin Level 4.6 g/dL (3.5-5.0); Alkaline Phosphatase 98 U/L (39-117); Anion Gap 15 (12-20); Aspartate Amino Transferase 16 U/L (5-31); Bilirubin Total 0.2 mg/dL (0.0-1.0); Blood Urea Nitrogen 15 mg/dL (9-16); Calcium 9.8 mg/dL (8.4-10.2); Carbon Dioxide 26 mmol/L (22-29); Chloride 102 mmol/L (96-108); Creatinine Clr Calc Pharmacy 49.5; Estimated Glomerular Filt Rate > 60; Glucose Random 87 mg/dL (60-115); Potassium 3.9 mmol/L (3.3-5.1); Sodium 139 mmol/L (135-145); Total Protein 7.3 g/dL (6.5-8.0)
[2022-06-01 12:49] LABS: Appearance Urine HAZY; Color Urine YELLOW; Glucose Urine UA NEG (NEG); Leukocyte Esterase Urine NEG (NEG); Nitrite Urine NEG (NEG); Specific Gravity - Urine >= 1.030 (1.005-1.025); UACC Culture Trigger NO; Urine Blood TRACE (NEG); Urine Ketones 15 MG/DL (NEG); Urine Protein NEG (NEG-TRACE)
--- NOTE | 2022-06-01 12:52 | ED_ITS ---
HPI - Back Pain/Injury General Chief Complaint: General Medical Stated Complaint: back pain Time Seen by Provider: 06/01/22 12:17 Source: patient Mode of arrival: ambulatory Limitations: no limitations History of Present Illness HPI Narrative: 66 y/o female history of COPD, anxiety, endometriosis, benzodiazepine abuse and dependence presenting to the ED with complaints of lower back pain that radiates to the front to her ribs and when she takes a deep breath she has worsening pain since she was opening a window on Tuesday at her house. She reports that she did not actually fall and the window did not fall onto her back it was just when she lifted the window. She is requesting some anxiety medication. Denies any headaches, dizziness, change in vision, chest pain or shortness of breath, dyspnea on exertion, orthopnea, palpitations, chest pain, abdominal pain or injury, lower extremity injury or pain, paresthesias, urinary bowel incontinence or retention, hematuria, flank pain, abnormal vaginal discharge, lower extremity edema or calf tenderness or any other symptoms complaints concerns or injuries at this time. MD elicited complaint: back pain and back injury Pertinent past history: arthritis Onset (ago): day(s) ( Over the past few days worse today) Timing: constant and progressively worsening Severity: mild Similar Symptoms Previously: Yes Quality: aching Location: lumbar spine Radiation: other ( rib cage) Exacerbating factors: movement, walking and lifting Relieving factors: none Context: while lifting Associated symptoms: denies other symptoms Treatments prior to arrival: other ( she reports she has tried [id number] medication no symptomatic) Work related injury: No Related Data Home Medications Medication Instructions Recorded Confirmed budesonide 90 mcg/actuation breath 2 puff inhalation BID 04/01/22 04/01/22 activated powder inhaler (Pulmicort Flexhaler) tiotropium bromide 2.5 2 puff inhalation DAILY 04/01/22 04/01/22 mcg/actuation mist for inhalation (Spiriva Respimat) Previous Rx's Medication Instructions Recorded albuterol sulfate 90 mcg/actuation 1 inh inhalation QID PRN shortness 01/19/22 aerosol inhaler (Ventolin HFA) of breath or wheezing #6.7 grams polyethylene glycol 3350 17 17 g PO DAILY PRN constipation 01/19/22 gram/dose oral powder (Miralax) #119 grams cyclobenzaprine 10 mg tablet 10 mg PO Q8H PRN Muscle spasm #14 06/01/22 tabs lidocaine 5 % topical patch 1 patch topical DAILY pain #15 ea 06/01/22 (Lidoderm) naproxen 500 mg tablet 500 mg PO BID PRN pain #10 tabs 06/01/22 oxycodone 5 mg tablet 5 mg PO Q6H PRN pain #10 tabs 06/01/22 Allergies Allergy/AdvReac Type Severity Reaction Status Date / Time No Known Allergies Allergy Verified 02/06/22 11:39 [No Known Allergies*] Review of Systems Review of Systems: Constitutional : No trauma, No Weight loss, No Fever, No Chills, ENT/Mouth : No Hearing loss, No Ear Pain, No Nasal Congestion, No Sinus Pain, No Hoarseness, No sore throat, No Rhinorrhea, No Swallowing Difficulty Cardiovascular : No Chest Pain, No SOB Respiratory : No Cough, No Dyspnea Gastrointestinal : No Nausea, No Vomiting, No Diarrhea, No abdominal Pain, No Hematochezia, No Melena Genitourinary : No Dysuria, No Urinary Frequency, No Hematuria, No Urinary or Bowel Incontinence/retention Musculoskeletal : + Back pain, No neck pain, No joint stiffness, No joint swelling Skin : No Skin Lesions, No rash or signs of infection Neuro : No Weakness, No radiation, No Numbness, No Paresthesias, No headache, no loss of bowel or bladder incontinence, no saddle anesthesia Denies history of IV drug usage. Yes all other systems are reviewed and are negative PMFSH Past Medical History Attestation statement: The following information was validated with the patient. Source: old records reviewed and nursing notes reviewed Medical History Anxiety COPD (chronic obstructive pulmonary disease) Endometriosis Surgical History H/O: hysterectomy Social History Social History Alcohol intake: never Patient Tobacco Use Status: Former Tobacco user Substance Use Type: Opiates Advance Directives: Yes Advance Directives on File: Yes Advance Directives Date on File: 04/01/22 Physical Exam Vital Signs: Vital Signs: Last Vital Signs Temp 98.3 F 06/01/22 06:21 Pulse 104 H 06/01/22 06:21 Resp 20 06/01/22 06:21 BP 137/87 06/01/22 06:21 Pulse Ox 94 06/01/22 06:21 O2 Del Method 06/01/22 06:21 BMI result Body Mass Index 16.2 vital signs have been reviewed as normal and appeared to be correct. Blood pressure normal. Heart rate 104. Respiration rate normal. Temperature normal. Oxygen saturation normal. Appearance: Alert. Oriented X3. No acute distress. Head: Normal external exam. Normocephalic. Atraumatic. Eyes: PERRLA. EOMI. Conjunctiva and sclera normal. Eyelids normal. ENT: Pharynx normal. Uvula midline. Moist mucous membranes. No trismus noted. No drooling noted. No muffled voice noted. Neck: Normal inspection. Neck supple. FROM. No adenopathy. Thyroid Normal. No meningeal signs. No neck mass noted. CVS: Normal heart rate and rhythm. Heart sound normal. No murmurs noted. Pulses normal throughout. Respiratory: No respiratory distress. Painless inspiration. Breath sounds normal. No wheezes/rales/rhonchi noted. Chest nontender. No accessory muscle usage noted or decreased air movement noted. Abdomen: Soft and nontender. Bowel sounds normal in all 4 quadrants. No distention noted. No organomegaly noted. No visible injury noted. Back: No CVA tenderness. Full range of motion noted. No obvious deformities, or edema. Mild para-spinal muscular tenderness from lumbar region to coccyx. Full ROM in back and lower extremities. 5/5 strength hip extension/flexion, abduction, adduction. Mild Lumbar pain with hip flexion against resistance. Straight leg raise test negative on right; Straight leg raise test negative on left; Reflexes normal ankle and knee bilaterally; EHL motor strength normal bilaterally. No rashes/lesion/induration/fluctuance or signs infection noted. Skin: Skin warm and dry. Normal skin color. Normal skin turgor. No rashes/lesions/lacerations noted. Extremities: No lower extremity edema. Extremities exhibit normal range of motion. Extremities nontender. Neuro: Oriented X 3. No motor deficit. No sensory deficit. Reflexes normal. Patient has a normal steady gait. Course Course Course Narrative: Pt c likely muscular pain, but could be herniated disc. Neuro exam shows no deficits. Not c/w AAA/epidural abscess/dissection. No high risk Hx (Incont, fever, immunosupp, recent surgery/LP, coag, signif trauma, wt loss, puls mass, hx/o Ca, TB, or IVDU) to warrant MRI/CT today. Not c/w Pyelo/UTI/kidney s tone/spinal fx. Not cauda equina syndrome. labs were obtained while the patient was in the waiting room and all labs are within normal limits. UA ordered at this time and revealed a trace of blood in 15 ketones otherwise no evidence of UTI. Patient does have yeast therefore will sent home with Diflucan. Patient positive for opioids and fentanyl negative for all other drugs on drugs of abuse screen. If x-ray of lumbar spine negative will DC home with symptomatic treatment for musculoskeletal pain and for yeast infection instructions return if any new or worsening symptoms follow up with primary care provider. Patient understands agrees with this plan. Reevaluation(s) Reevaluation #1: - Patient noted to have a possible new L1 compression fracture otherwise no other acute fractures only chronic fractures. Patient noted to have diffuse osteopenia. Therefore at this time will DC home with a short course of o xycodone and instructions follow-up with PCP and to follow-up with [place] [facility]. Patient understands agrees with this plan. Time: 14:16 [facility] - Back Pain/Injury Medical Records Attestation: I reviewed the patient's medical records. Lab Data Attestation: I reviewed the patient's lab results. Result diagrams: 06/01/22 06:42 06/01/22 06:42 Labs: Lab Results 06/01/22 06/01/22 06/01/22 Range/Units 06:42 06:42 12:40 WBC 5.0 (4.8-10.8) X10*3/uL RBC 4.57 (4.20-5.50) X10*6/uL Hgb 13.2 (12.0-16.0) g/dl Hct 40.4 (37.0-47.0) % MCV 88.4 (80.0-98.0) fL MCH 28.9 (27.0-33.0) pg MCHC 32.7 (31.0-35.0) g/dl RDW 13.4 (11.0-16.0) % Plt Count 293 (160-400) X10*3/uL MPV 9.6 (9.4-12.3) fL Absolute Nucleated RBC 0.000 (0.0-0.012) X10*3/uL Nucleated RBC % (auto) 0.0 (0.0-0.2) /100WBC Sodium 139 (135-145) mmol/L Potassium 3.9 (3.3-5.1) mmol/L Chloride 102 (96-108) mmol/L Carbon Dioxide 26 (22-29) mmol/L Anion Gap 15 (12-20) BUN 15 (9-16) mg/dL Creatinine 0.74 (0.5-1.4) mg/dL Estim Creat Clear Calc 49.5 Estimated GFR > 60 Random Glucose 87 (60-115) mg/dL Calcium 9.8 (8.4-10.2) mg/dL Total Bilirubin 0.2 (0.0-1.0) mg/dL AST 16 (5-31) U/L ALT 14 (0-31) U/L Alkaline Phosphatase 98 (39-117) U/L Total Protein 7.3 (6.5-8.0) g/dL Albumin 4.6 (3.5-5.0) g/dL Urine Color YELLOW Urine Appearance HAZY Urine pH 5.0 (5.0-8.0) Ur Specific [place] >= 1.030 H (1.005-1.025) Urine Protein NEG (NEG-TRACE) MG/DL Urine Glucose (UA) NEG (NEG) MG/DL Urine Ketones 15 (NEG) MG/DL Urine Blood TRACE (NEG) Urine Nitrite NEG (NEG) Ur Leukocyte Esterase NEG (NEG) Urine RBC 0-2 (0) /HPF Urine WBC 0-2 (0-4) /HPF Ur Squamous Epith Cells 2+ /LPF Calcium Oxalate Crystal 4+ /LPF Urine Bacteria NONE /LPF Urine Yeast 1+ /HPF Urine Opiates Screen (Not Detect) Urine Fentanyl Screen (Not Detect) Ur Barbiturates Screen (Not Detect) Ur Phencyclidine Scrn (Not Detect) Ur Amphetamines Screen (Not Detect) U Benzodiazepines Scrn (Not Detect) Urine Cocaine Screen (Not Detect) U Marijuana (THC) Screen (Not Detect) 06/01/22 Range/Units 12:40 WBC (4.8-10.8) X10*3/uL RBC (4.20-5.50) X10*6/uL Hgb (12.0-16.0) g/dl Hct (37.0-47.0) % MCV (80.0-98.0) fL MCH (27.0-33.0) pg MCHC (31.0-35.0) g/dl RDW (11.0-16.0) % Plt Count (160-400) X10*3/uL MPV (9.4-12.3) fL Absolute Nucleated RBC (0.0-0.012) X10*3/uL Nucleated RBC % (auto) (0.0-0.2) /100WBC Sodium (135-145) mmol/L Potassium (3.3-5.1) mmol/L Chloride (96-108) mmol/L Carbon Dioxide (22-29) mmol/L Anion Gap (12-20) BUN (9-16) mg/dL Creatinine (0.5-1.4) mg/dL Estim Creat Clear Calc Estimated GFR Random Glucose (60-115) mg/dL Calcium (8.4-10.2) mg/dL Total Bilirubin (0.0-1.0) mg/dL AST (5-31) U/L ALT (0-31) U/L Alkaline Phosphatase (39-117) U/L Total Protein (6.5-8.0) g/dL Albumin (3.5-5.0) g/dL Urine Color Urine Appearance Urine pH (5.0-8.0) Ur Specific [place] (1.005-1.025) Urine Protein (NEG-TRACE) MG/DL Urine Glucose (UA) (NEG) MG/DL Urine Ketones (NEG) MG/DL Urine Blood (NEG) Urine Nitrite (NEG) Ur Leukocyte Esterase (NEG) Urine RBC (0) /HPF Urine WBC (0-4) /HPF Ur Squamous Epith Cells /LPF Calcium Oxalate Crystal /LPF Urine Bacteria /LPF Urine Yeast /HPF Urine Opiates Screen POSITIVE H (Not Detect) Urine Fentanyl Screen POSITIVE H (Not Detect) Ur Barbiturates Screen Not Detected (Not Detect) Ur Phencyclidine Scrn Not Detected (Not Detect) Ur Amphetamines Screen Not Detected (Not Detect) U Benzodiazepines Scrn Not Detected (Not Detect) Urine Cocaine Screen Not Detected (Not Detect) U Marijuana (THC) Screen Not Detected (Not Detect) Imaging Data Lumbar spine x-ray: Attestation: I personally reviewed and interpreted this imaging study as follows: Radiologist's impression: FINDINGS: There is osteopenia visualized bones. There is a stable mild compression fracture of the superior endplate of L4 without significant loss of height. There is a stable superior endplate compression fracture of L2 without significant loss of height. There appears to be a new mild inferior endplate compression fracture of L1 without significant loss of height. Some of the appearance is probably related to angulation of the beam at this level. No spondylolisthesis or spondylolysis is appreciated. Disc spaces are maintained. Prominent abdominal aortic calcifications are evident. There is a large amount of stool and gas throughout the bowel making evaluation of the sacroiliac joints and lower lumbar spine difficult on AP view. XR/XR lumbar spine 2-3V IMPRESSION: Diffuse osteopenia. ? New mild inferior endplate compression fracture of L1 without significant loss of height. ? Other stable endplate fractures as described. Discharge Plan Discharge Clinical Impression: Closed fracture of first lumbar vertebra Patient Disposition: Home, Self-Care Instructions: Thoracolumbar Fracture (ED) Additional Instructions: please contact your primary care provider you should follow-up with [facility]. Return if any new or worsening symptoms. Prescriptions: New naproxen 500 mg tablet 500 mg PO BID PRN (Reason: pain) Qty: 10 0RF cyclobenzaprine 10 mg tablet 10 mg PO Q8H PRN (Reason: Muscle spasm) Qty: 14 0RF lidocaine [Lidoderm] 5 % adhesive patch,medicated 1 patch topical DAILY Qty: 15 0RF Rx Instructions: leave on most painful area for up to 12 hrs. May be substituted oxycodone 5 mg tablet 5 mg PO Q6H PRN (Reason: pain) Qty: 10 0RF Rx Instructions: Partial Fill upon patient request. No Action polyethylene glycol 3350 [Miralax] 17 gram/dose powder 17 g PO DAILY PRN (Reason: constipation) Qty: 119 0RF albuterol sulfate [Ventolin HFA] 90 mcg/actuation HFA aerosol inhaler 1 inh inhalation QID PRN (Reason: shortness of breath or wheezing) Qty: 6.7 0RF Pulmicort Flexhaler 90 mcg/actuation aerosol powdr breath activated 2 puff inhalation BID Spiriva Respimat 2.5 mcg/actuation mist 2 puff inhalation DAILY Referrals: Physician,Unknown J [Primary Care Provider] - 2 days (your pcp)
[2022-06-01] MEDS: clonazePAM 0.5 MG TABLET PO (12:57)
[2022-06-01 13:05] LABS: Amphetamine Screen Urine Not Detected (Not Detect); Barbiturates, Urine Not Detected (Not Detect); Benzodiazepines Screen Urine Not Detected (Not Detect); Cannabinoid Screen Urine Not Detected (Not Detect); Cocaine Screen Urine Not Detected (Not Detect); Fentanyl, urine POSITIVE (Not Detect); Opiate Screen Urine POSITIVE (Not Detect); Phencyclidine Screen Urine Not Detected (Not Detect)
[2022-06-01 13:07] LABS: Calcium Oxalate Crystals Urine 4+ /LPF; RBC Urine 0-2 /HPF (0); Squamous Epithelial Cell Urine 2+ /LPF; WBC Urine 0-2 /HPF (0-4)
== END 2022-06-01 15:37 | disposition home or self-care (01) ==
PROVIDERS: Physician Assistant Medical; Emergency Provider Emergency Medicine
DX: S32.010A Wedge compression fracture of first lumbar vertebra, initial encounter for closed fracture (principal); S32.020D Wedge compression fracture of second lumbar vertebra, subsequent encounter for fracture with routine healing; S32.040D Wedge compression fracture of fourth lumbar vertebra, subsequent encounter for fracture with routine healing; X58.XXXD Exposure to other specified factors, subsequent encounter; X50.9XXA Other and unspecified overexertion or strenuous movements or postures, initial encounter; B37.3 Candidiasis of vulva and vagina; M85.88 Other specified disorders of bone density and structure, other site; F11.90 Opioid use, unspecified, uncomplicated; Z87.891 Personal history of nicotine dependence; Y93.89 Activity, other specified; Y92.9 Unspecified place or not applicable; Y99.9 Unspecified external cause status; Z79.899 Other long term (current) drug therapy
CPT/HCPCS: 36415; 72100; 80053; 80307; 81001; 85027; 99282; 99283

== ENCOUNTER 2022-06-27 12:11 | Emergency (ER) | payer MEDICARE, MEDICAID, SELFPAY ==
--- NOTE | ~2022-06-27 | CT_ITS ---
EXAMINATION: CT CHEST, ABDOMEN AND PELVIS WITHOUT CONTRAST CLINICAL INFORMATION: Chest wall pain and epigastric discomfort with nausea COMPARISON: CT abdomen pelvis 02/06/2022 TECHNIQUE: Multidetector volumetric imaging was performed from the thoracic inlet through the pubic symphysis. Sagittal and coronal reformatted images were obtained on the technologist's workstation. Axial MIP volume rendering provided. This CT examination was performed using dose optimization techniques as appropriate, variously including the following: *Automated exposure control *Adjustment of mA and/or kV according to patient size (this includes techniques or standardized protocols for targeted exams where dose is matched to indication/reason for exam; i.e. extremities or head) *Use of iterative reconstruction technique DLP: 303 mGy-cm FINDINGS: CHEST: Lungs: No suspicious appearing pulmonary nodule or mass. Tiny calcified granuloma in the posterior left lower lobe. Small sub-4 mm sessile interfissural nodule along the horizontal fissure compatible with an intrapulmonary lymph node on image 298/501. Tiny 1-2 mm subpleural pulmonary nodules in the right lower lobe on image 349 and 333. No airspace consolidation. Minimal bibasilar atelectasis. Extensive centrilobular emphysema and hyperinflation of the lungs with flattened diaphragm. Small fat-containing Bochdalek hernias bilaterally. Central airways are clear. Mediastinum: No cardiomegaly or pericardial effusion. Three-vessel coronary artery vascular calcifications. Nondilated mildly tortuous thoracic aorta with mild to moderate vascular calcifications. Normal caliber central pulmonary trunk. No mediastinal or hilar lymphadenopathy. Pericardium/Pleura: There is no significant effusion. No pleural mass or thickening. Chest Wall/Axilla: Unremarkable. ABDOMEN/PELVIS: Liver, Gallbladder, Biliary Tree: The liver is normal in size, shape, and attenuation. No focal hepatic lesion or biliary ductal dilatation is present. Prominently distended gallbladder fundus. No calcified gallstones. No pericholecystic inflammatory change or gallbladder wall thickening. Pancreas: Unremarkable. Spleen: Unremarkable. Adrenal Glands: Unchanged 1.7 cm indeterminate left adrenal nodule attenuation values of 17 Hounsfield units. Mild calcification of the lateral limb left adrenal gland. Normal right adrenal gland. Kidneys and Ureters: 1.3 cm left lower pole simple renal cyst. No other renal lesions. No calcification in the anterior left midpole noted. Mild left pelviectasis. No significant hydronephrosis. No perinephric stranding or collections. Bladder: Unremarkable. Gastrointestinal Tract: Sigmoid diverticulosis. No evidence of acute diverticulitis. No dilated bowel loops. No bowel wall thickening. Moderate amount of formed stool throughout the colon. Normal appendix. No ascites or free air. Abdominal Wall: No hernia is demonstrated. Lymphovascular Structures: Lymph nodes: No lymphadenopathy. Vascular: Relatively extensive atherosclerotic vascular calcifications. Normal caliber abdominal aorta. Pelvic Viscera: Status post hysterectomy. No free pelvic fluid. OSSEOUS STRUCTURES: Chronic/healed right inferior pubic ramus fracture deformity. Inferior endplate compression deformity of T8, T9, T10, chronic in appearance. Superior plate compression deformity T11. Subacute compression fracture deformity of T12 with visible fracture line, trabecular sclerosis, mild paravertebral soft tissue edema. Buckling of the posterior superior corner of T11 and T12 vertebral bodies. Biconcave endplate compression deformity of L1 and superior endplate compression deformity of L2, chronic in appearance. Multiple low healed right lateral rib fracture deformities noted. No acute rib fracture identified. Healed sternal fracture deformity. CT/CT abdomen pelvis wo con IMPRESSION: 1. Subacute appearing T12 compression/burst fracture deformity with mild height loss and paravertebral edema. Correlate with pain referable to this level on exam. 2. Multiple additional chronic appearing compression deformities in the lower thoracic and upper lumbar spine, as above. 3. Healed right lateral rib, sternal fracture, and right inferior pubic ramus deformities. No acute rib fracture identified. 4. Severe centrilobular emphysema and hyperinflation of the lungs. Few tiny sub-4 mm pulmonary nodules. No suspicious pulmonary nodules. Consider optional low-dose chest CT follow-up in 12 months per [employer] guidelines 2017. 5. No acute intra-abdominal process identified. 6. Unchanged indeterminate left adrenal nodule and calcification. 7. Mild left pelviectasis. No significant hydronephrosis. 8. Colonic diverticulosis. No evidence of acute diverticulitis.
[2022-06-27 12:41] VITALS: BP 152/92; PULSE 92; O2SAT 97
[2022-06-27 12:43] VITALS: BP 140/77; PULSE 86; RESP 18; TEMP 36.4; O2SAT 95; BMI 15.0
--- NOTE | 2022-06-27 13:28 | ED_ITS ---
HPI - Back Pain/Injury General Chief Complaint: Back Pain/Injury Stated Complaint: BACK PAIN/SOB Time Seen by Provider: 06/27/22 13:25 Source: patient Mode of arrival: EMS History of Present Illness HPI Narrative: 66-year-old female presents with complaints of chest wall and back pain that has persisted since she was last evaluated in found to have a compression fracture approximately 1 month ago. Patient denies any associated fever, chills, diarrhea, urinary symptoms. Patient denies any shortness of breath but states she has had some chest discomfort. On review of prior documentation patient is known to abuse benzodiazepines and is currently requesting Klonopin, stating that she left it at home. Related Data Home Medications Medication Instructions Recorded Confirmed budesonide 90 mcg/actuation breath 2 puff inhalation BID 04/01/22 04/01/22 activated powder inhaler (Pulmicort Flexhaler) tiotropium bromide 2.5 2 puff inhalation DAILY 04/01/22 04/01/22 mcg/actuation mist for inhalation (Spiriva Respimat) Previous Rx's Medication Instructions Recorded albuterol sulfate 90 mcg/actuation 1 inh inhalation QID PRN shortness 01/19/22 aerosol inhaler (Ventolin HFA) of breath or wheezing #6.7 grams polyethylene glycol 3350 17 17 g PO DAILY PRN constipation 01/19/22 gram/dose oral powder (Miralax) #119 grams cyclobenzaprine 10 mg tablet 10 mg PO Q8H PRN Muscle spasm #14 06/01/22 tabs lidocaine 5 % topical patch 1 patch topical DAILY pain #15 ea 06/01/22 (Lidoderm) naproxen 500 mg tablet 500 mg PO BID PRN pain #10 tabs 06/01/22 oxycodone 5 mg tablet 5 mg PO Q6H PRN pain #10 tabs 06/01/22 Allergies Allergy/AdvReac Type Severity Reaction Status Date / Time No Known Allergies Allergy Verified 02/06/22 11:39 [No Known Allergies*] Review of Systems Review of Systems: Pertinent positives and negatives as stated in HPI 10pt Review of systems is otherwise negative. [facility] Past Medical History Medical History Anxiety COPD (chronic obstructive pulmonary disease) Endometriosis Surgical History H/O: hysterectomy Social History Social History Alcohol intake: never Patient Tobacco Use Status: Former Tobacco user Substance Use Type: Opiates Advance Directives: Yes Advance Directives on File: Yes Advance Directives Date on File: 04/01/22 Physical Exam Vital Signs: Vital Signs: Last Vital Signs Temp 97.5 F 06/27/22 12:43 Pulse 86 06/27/22 12:43 Resp 18 06/27/22 12:43 BP 140/77 H 06/27/22 12:43 Pulse Ox 95 06/27/22 12:43 O2 Del Method 06/27/22 12:43 BMI result Body Mass Index 15.0 VITAL SIGNS: Reviewed. GENERAL: Chronically ill, cachectic in no acute distress. HEAD: Normocephalic/atraumatic EYES: PERRLA, EOMI EARS: Ext canals without abnormality OROPHARYNX: no oral lesions noted, posterior pharynx clear LUNGS: Normal breath sounds. No adventitious sounds or accessory muscle use. SpO2<95> CARDIOVASCULAR: Regular rate and rhythm without noted murmurs ABDOMEN: Soft, mild tenderness, non-distended with bowel sounds. PELVIS: stable nontender BACK: Tenderness on palpation at the lumbar spine but otherwise no gross step- offs noted. MUSCULOSKELETAL: No tenderness, deformities, or effusions noted on gross inspection. EXTREMITIES: No cyanosis, clubbing or edema. SKIN: Inspection of the skin reveals no rashes NEUROLOGIC: Alert and oriented x 4. Strength and sensation to light touch were grossly intact x 4. Course Course Course Narrative: 66-year-old female with history and clinical presentation most consistent with suspected pain from the compression fracture and the possibility that she has sustained further. Although she denies any falls will evaluate for any chest wall / spine abnormalities and obtain basic labs. Review of all investigations demonstrates chronic and subacute compression fractures that are likely contributing to patient's underlying pain and discomfort. Patient was encouraged to follow-up with her primary care provider and she was provided with combination analgesics to include lidocaine patch. She is otherwise stable discharged home and is currently afebrile, no tachypnea or tachycardia and oxygenating well on room air. MDM - Back Pain/Injury Lab Data Result diagrams: 06/27/22 14:06 08/14/22 14:06 Labs: Lab Results 06/27/22 06/27/22 06/27/22 Range/Units 14:06 14:06 14:06 WBC 5.0 (4.8-10.8) X10*3/uL RBC 4.10 L (4.20-5.50) X10*6/uL Hgb 11.9 L (12.0-16.0) g/dl Hct 36.3 L (37.0-47.0) % MCV 88.5 (80.0-98.0) fL MCH 29.0 (27.0-33.0) pg MCHC 32.8 (31.0-35.0) g/dl RDW 13.0 (11.0-16.0) % Plt Count 228 (160-400) X10*3/uL MPV 10.5 (9.4-12.3) fL Immature Gran % (Auto) 0.4 (0.0-0.4) % Neut % (Auto) 79.9 H (45-73) % Lymph % (Auto) 13.9 L (20-40) % [place] % (Auto) 4.0 (2-11) % Eos % (Auto) 0.8 (0-4) % Baso % (Auto) 1.0 (0-2) % Lymph # (Auto) 0.7 L (1.2-4.9) X10*3/uL [place] # (Auto) 0.2 (0.1-1.2) X10*3/uL Eos # (Auto) 0.0 (0.0-0.4) X10*3/uL Baso # (Auto) 0.1 (0.0-0.2) X10*3/uL Abs Immat Gran (auto) 0.02 (0.00-0.03) X10*3/uL Absolute Neuts (auto) 4.0 (2.0-8.3) x10*3/uL Absolute Nucleated RBC 0.000 (0.0-0.012) X10*3/uL Nucleated RBC % (auto) 0.0 (0.0-0.2) /100WBC Sodium 139 (135-145) mmol/L Potassium 4.3 (3.3-5.1) mmol/L Chloride 102 (96-108) mmol/L Carbon Dioxide 26 (22-29) mmol/L Anion Gap 15 (12-20) BUN 11 (9-16) mg/dL Creatinine 0.71 (0.5-1.4) mg/dL Estim Creat Clear Calc 47.7 Estimated GFR > 60 Random Glucose 96 (60-115) mg/dL Calcium 9.0 D (8.4-10.2) mg/dL Total Bilirubin 0.4 (0.0-1.0) mg/dL AST 14 (5-31) U/L ALT 10 (0-31) U/L Alkaline Phosphatase 69 D (39-117) U/L Troponin I High Sens < 3.5 (<3.5-17.0) ng/L Total Protein 5.6 L D (6.5-8.0) g/dL Albumin 3.6 D (3.5-5.0) g/dL Discharge Plan Discharge Clinical Impression: Back pain, Chest wall pain, Compression fracture of thoracic vertebra Patient Disposition: Home, Self-Care Instructions: Chest Wall Pain (ED), Back Pain (ED), Vertebral Compression Fracture (ED) Additional Instructions: 1. Resume all home medications as prescribed. 2. Follow-up with your primary care provider on Tuesday morning by calling the office and setting up an appointment for re-evaluation and possible referral for intervention regarding your compression fractures. 3. Recommend Tylenol 1000 mg, orally, every 6 hours as needed for pain control. Do not exceed 4000 mg within 24 hours. 4. Lidocaine patch, apply to area maximal tenderness as directed on the outside packaging. Return to the ER for worsening symptoms. Prescriptions: No Action polyethylene glycol 3350 [Miralax] 17 gram/dose powder 17 g PO DAILY PRN (Reason: constipation) Qty: 119 0RF albuterol sulfate [Ventolin HFA] 90 mcg/actuation HFA aerosol inhaler 1 inh inhalation QID PRN (Reason: shortness of breath or wheezing) Qty: 6.7 0RF naproxen 500 mg tablet 500 mg PO BID PRN (Reason: pain) Qty: 10 0RF cyclobenzaprine 10 mg tablet 10 mg PO Q8H PRN (Reason: Muscle spasm) Qty: 14 0RF lidocaine [Lidoderm] 5 % adhesive patch,medicated 1 patch topical DAILY Qty: 15 0RF Rx Instructions: leave on most painful area for up to 12 hrs. May be substituted oxycodone 5 mg tablet 5 mg PO Q6H PRN (Reason: pain) Qty: 10 0RF Rx Instructions: Partial Fill upon patient request. Pulmicort Flexhaler 90 mcg/actuation aerosol powdr breath activated 2 puff inhalation BID Spiriva Respimat 2.5 mcg/actuation mist 2 puff inhalation DAILY
[2022-06-27 14:10] LABS: MANUAL DIFF FLAG NO
[2022-06-27 14:17] LABS: Basophils Absolute Auto 0.1 X10*3/uL (0.0-0.2); Eosinophils Percent Auto 0.8 % (0-4); Hematocrit 36.3 % (37.0-47.0); Hemoglobin 11.9 g/dl (12.0-16.0); Imm Gran Abs Auto 0.02 X10*3/uL (0.00-0.03); Imm Gran Pct Auto 0.4 % (0.0-0.4); Lymphocytes Absolute Auto 0.7 X10*3/uL (1.2-4.9); Lymphocytes Percent Auto 13.9 % (20-40); Mean Corpuscular HGB Conc 32.8 g/dl (31.0-35.0); Mean Corpuscular Volume 88.5 fL (80.0-98.0); Mean Platelet Volume 10.5 fL (9.4-12.3); Monocytes Absolute Auto 0.2 X10*3/uL (0.1-1.2); Neutrophils Percent Auto 79.9 % (45-73); Platelet Count 228 X10*3/uL (160-400)
[2022-06-27 14:26] LABS: Alanine Aminotransferase 10 U/L (0-31); Albumin Level 3.6 g/dL (3.5-5.0); Alkaline Phosphatase 69 U/L (39-117); Anion Gap 15 (12-20); Aspartate Amino Transferase 14 U/L (5-31); Bilirubin Total 0.4 mg/dL (0.0-1.0); Blood Urea Nitrogen 11 mg/dL (9-16); Carbon Dioxide 26 mmol/L (22-29); Chloride 102 mmol/L (96-108); Creatinine Clr Calc Pharmacy 47.7; Estimated Glomerular Filt Rate > 60; Glucose Random 96 mg/dL (60-115); Potassium 4.3 mmol/L (3.3-5.1); Sodium 139 mmol/L (135-145); Total Protein 5.6 g/dL (6.5-8.0)
[2022-06-27 14:30] LABS: Troponin-I High Sensitivity < 3.5 ng/L (<3.5-17.0)
[2022-06-27] MEDS: Acetaminophen 325 MG TABLET 975 MG PO (16:10)
[2022-06-27] MEDS: LORazepam 0.5 MG TABLET PO (16:10)
[2022-06-27] MEDS: Lidocaine 4 % Patch ADH..PATCH 1 PATCH TRANSDERMA (16:10)
[2022-06-27] MEDS: Ketorolac Tromethamine 15 MG/ML VIAL IM (16:21)
[2022-06-27] MEDS: Albuterol Sulfate 90 MCG 8 GM INHALER 2 PUFF INHALE (17:54)
== END 2022-06-28 10:52 | disposition left against medical advice (07) ==
PROVIDERS: Emergency Provider Student in an Organized Health Care Education/Training Program
DX: M54.6 Pain in thoracic spine (principal); M54.50 Low back pain, unspecified; R10.2 Pelvic and perineal pain; R05.9 Cough, unspecified; R07.89 Other chest pain; R06.02 Shortness of breath; Z79.899 Other long term (current) drug therapy; Z87.891 Personal history of nicotine dependence
CPT/HCPCS: 36415; 71250; 74176; 80053; 84484; 85025; 96374; 99283; 99284; J1885

== ENCOUNTER 2022-06-27 21:16 | Emergency (ER) | payer MEDICARE, MEDICAID, SELFPAY ==
[2022-06-27 21:49] VITALS: BP 115/62; PULSE 115; O2SAT 97
[2022-06-27 21:56] VITALS: BP 130/60; PULSE 90; RESP 16; O2SAT 97; BMI 15.1
--- NOTE | 2022-06-27 23:12 | ED_ITS ---
HPI - General Adult General Chief complaint: General Medical Stated complaint: not feeling well Time Seen by Provider: 06/27/22 23:12 Source: patient Mode of arrival: EMS Limitations: no limitations History of Present Illness HPI narrative: 66-year-old female who presents emergency department for evaluation of chest pain and lower back pain. She told me that she has been having lower back pain since May 2022. The patient was here in the emergency department 06/01/2022 and diagnosed with a possible new L1 compression fracture. She states she has been having constant pain which waxes and wanes in intensity in her lower back. She describes as a sharp pain which is 8/10 worse with movement. She states she is also having pain in her chest which has been there for several weeks. She states the pain is located throughout her in tear chest, is worse with movement and with coughing. She denied fever, chills, nausea, vomiting. States she does feel short of breath secondary to her chest pain. Patient was seen earlier today in the emergency department for similar complaint. The patient was seen by Dr. Ndiaye and I did review her note. The patient had a CT scan of her chest, abdomen pelvis which revealed subacute appearing T12 compression fracture and multiple additional chronic appearing compression deformities in the lower thoracic and upper lumbar spine, healing right rib fracture and sternal fracture. Patient also had a laboratory evaluation which was unremarkable. Dr. Ndiaye felt that the patient's symptoms were secondary to chronic and subacute compression fractures. Patient was advised to take [id number] analgesics and lidocaine patches. The patient told me that at home she was feeling anxious about her pain therefore she called an ambulance and came back to the emergency department. Related Data Home Medications Medication Instructions Recorded Confirmed budesonide 90 mcg/actuation breath 2 puff inhalation BID 04/01/22 04/01/22 activated powder inhaler (Pulmicort Flexhaler) tiotropium bromide 2.5 2 puff inhalation DAILY 04/01/22 04/01/22 mcg/actuation mist for inhalation (Spiriva Respimat) Previous Rx's Medication Instructions Recorded albuterol sulfate 90 mcg/actuation 1 inh inhalation QID PRN shortness 01/19/22 aerosol inhaler (Ventolin HFA) of breath or wheezing #6.7 grams polyethylene glycol 3350 17 17 g PO DAILY PRN constipation 01/19/22 gram/dose oral powder (Miralax) #119 grams cyclobenzaprine 10 mg tablet 10 mg PO Q8H PRN Muscle spasm #14 06/01/22 tabs lidocaine 5 % topical patch 1 patch topical DAILY pain #15 ea 06/01/22 (Lidoderm) naproxen 500 mg tablet 500 mg PO BID PRN pain #10 tabs 06/01/22 oxycodone 5 mg tablet 5 mg PO Q6H PRN pain #10 tabs 06/01/22 Allergies Allergy/AdvReac Type Severity Reaction Status Date / Time No Known Allergies Allergy Verified 02/06/22 11:39 [No Known Allergies*] Review of Systems Review of Systems: Yes all other systems are reviewed and are negative [facility] Past Medical History [facility] Narrative: Past medical history: COPD, anxiety, benzodiazepine abuse. Medical History Anxiety COPD (chronic obstructive pulmonary disease) Endometriosis Surgical History H/O: hysterectomy Social History Social History Alcohol intake: never Patient Tobacco Use Status: Former Tobacco user Substance Use Type: Opiates Advance Directives: Yes Advance Directives on File: Yes Advance Directives Date on File: 04/01/22 Physical Exam ED Vital Signs: Vital Signs - 24 hr 06/27/22 21:56 Pulse Rate 90 Respiratory Rate 16 Blood Pressure 130/60 Pulse Oximetry 97 Oxygen Delivery Method Room Air BMI result Body Mass Index 15.1 Const Other: Very anxious, thin, female patient, does not appear to be in distress, BMI is low 15.1 [facility] Head: Yes normal to inspection, Yes normocephalic and Yes atraumatic Ears: external ears normal General nose exam: Normal external nose present Face and sinus: Yes normal facial exam Mouth: Normal oral and palatal mucosa present Throat: Yes posterior oropharynx normal Eyes General: appearance normal, both eyes and all related structures Pupils: Equal, round and reactive pupils present Neck Neck: Yes normal visual inspection, Yes no lymphadenopathy, Yes trachea midline and Yes supple Chest Chest palpation & inspection: normal inspection of the chest and tenderness (Diffuse anterior chest wall tenderness) Resp Effort & Inspection: normal respiratory effort and able to speak in complete sentences Auscultation: clear to auscultation bilaterally Cardio Rate: regular rate Rhythm: regular rhythm Heart sounds: S1 normal heart sound present, S2 normal heart sound present and no murmurs GI Inspection: Yes normal to inspection Palpation (GI): Soft to palpation, nontender and no guarding Auscultation: normal bowel sounds Back/Spine/Pelvis Other: Patient has tenderness palpation of her thoracic and lumbar sacral spine as well as her paraspinal muscles in the lumbar sacral area, no spasm Skin General skin exam: no rashes or lesions noted Neuro Cranial nerves: Yes CN's II-XII intact bilaterally and Yes Equal, round and reactive pupils present Cognition (Neuro): normal cognition Motor exam (neuro): 5/5 motor strength present throughout Extrem General: Yes normal to inspection Psych Appearance: grossly normal Speech and movement: Normal speech and movement present Affect: normal affect Attitude: cooperative Thought process: Normal thought process present Thought content: Normal thought content present Course Course Course Narrative: 66-year-old female who presents emergency department for evaluation of chest pain and lower back pain, this is her 2nd ER visit today for the symptoms. She also told me that she is feeling very anxious. The patient had extensive workup earlier in the day and was found to have subacute and chronic fractures of her spine as well as her sternum and right ribs. The patient told me that she is feeling very anxious. She was ordered to get hydroxyzine 25 mg orally. The patient will be discharged home advised to follow-up with PCP for further evaluation. Discharge Plan Discharge Clinical Impression: Chest pain, Anxiety, Back pain Patient Disposition: Home, Self-Care Instructions: Acute Low Back Pain (ED) Additional Instructions: Take ibuprofen 200 mg pills, 2 pills every 6 hours as needed for pain. Take Tylenol (acetaminophen) 500 mg pills, 1 pills every 4 to 6 hours as needed for pain. Follow-up with your doctor in 2 days. Please return to the emergency department if your symptoms get worse or if you develop any symptoms that are concerning to you. Prescriptions: No Action polyethylene glycol 3350 [Miralax] 17 gram/dose powder 17 g PO DAILY PRN (Reason: constipation) Qty: 119 0RF albuterol sulfate [Ventolin HFA] 90 mcg/actuation HFA aerosol inhaler 1 inh inhalation QID PRN (Reason: shortness of breath or wheezing) Qty: 6.7 0RF naproxen 500 mg tablet 500 mg PO BID PRN (Reason: pain) Qty: 10 0RF cyclobenzaprine 10 mg tablet 10 mg PO Q8H PRN (Reason: Muscle spasm) Qty: 14 0RF lidocaine [Lidoderm] 5 % adhesive patch,medicated 1 patch topical DAILY Qty: 15 0RF Rx Instructions: leave on most painful area for up to 12 hrs. May be substituted oxycodone 5 mg tablet 5 mg PO Q6H PRN (Reason: pain) Qty: 10 0RF Rx Instructions: Partial Fill upon patient request. Pulmicort Flexhaler 90 mcg/actuation aerosol powdr breath activated 2 puff inhalation BID Spiriva Respimat 2.5 mcg/actuation mist 2 puff inhalation DAILY
[2022-06-28] MEDS: hydrOXYzine HCL 25 MG TABLET PO (00:06)
--- NOTE | 2022-06-28 00:09 | PC.NURSE ---
Pt. seen by Lj Downey MD. Medicated by this RN with PO Atarax. Lj Downey MD reviewed imaging results with pt.
[2022-06-28 00:22] VITALS: BP 139/74; PULSE 77; RESP 18; O2SAT 97
== END 2022-06-28 00:22 | disposition home or self-care (01) ==
PROVIDERS: Emergency Provider Emergency Medicine Emergency Medical Services
DX: R07.89 Other chest pain (principal); M54.50 Low back pain, unspecified; F41.9 Anxiety disorder, unspecified; F43.0 Acute stress reaction; Z79.899 Other long term (current) drug therapy; Z87.891 Personal history of nicotine dependence
CPT/HCPCS: 99283

== ENCOUNTER 2022-06-28 01:22 | Emergency (ER) | payer MEDICARE, MEDICAID, SELFPAY ==
[2022-06-28 01:40] VITALS: BP 136/68; PULSE 87; RESP 16; TEMP 36.6; O2SAT 98; BMI 18.8
[2022-06-28 06:15] VITALS: BP 132/69; PULSE 76; RESP 16; O2SAT 98
== END 2022-06-28 07:30 | disposition left against medical advice (07) ==
LOC: HO.ED 07:30
PROVIDERS: Emergency Provider Emergency Medicine
DX: F41.9 Anxiety disorder, unspecified (principal); R53.1 Weakness
CPT/HCPCS: 99281; 99282

== ENCOUNTER 2022-07-07 12:18 | Emergency (ER) | payer MEDICARE, MEDICAID, SELFPAY ==
--- NOTE | ~2022-07-07 | XR_ITS ---
EXAMINATION: XR CHEST CLINICAL INFORMATION: Shortness of breath. COMPARISON: Chest CT dated June 27, 2022. Chest x-ray dated April 01, 2022. TECHNIQUE: 2 views of the chest were obtained. XR/XR chest 2V FINDINGS/IMPRESSION: No acute infiltrate, effusion, pneumothorax is seen. Moderate to severe emphysema remains. The heart appears normal in size. Aorta is atherosclerotic and uncoiled, suggesting hypertension. Decreased bone mineral density. No significant radiographic change in compression deformities involving T9, T8 11, T12, and L1 compared with 10 days prior.
[2022-07-07 12:24] VITALS: BP 136/86; PULSE 91; O2SAT 95
[2022-07-07 12:25] VITALS: BP 119/85; PULSE 92; RESP 22; TEMP 36.1; O2SAT 96; BMI 15.4
--- NOTE | 2022-07-07 12:28 | ECG_ITS ---
Test Reason : sob Blood Pressure : / mmHG Vent. Rate : 083 BPM Atrial Rate : 083 BPM P-R Int : 150 ms QRS Dur : 070 ms QT Int : 370 ms P-R-T Axes : 081 061 078 degrees QTc Int : 434 ms Normal sinus rhythm Normal ECG When compared with ECG of 01-APR-2022 14:47, Premature atrial complexes are no longer Present ST elevation has replaced ST depression in Inferior leads T wave inversion no longer evident in Inferior leads Referred By: Generic ED Physician Electronically Signed By:RAFI STERLING
[2022-07-07 13:10] LABS: Anion Gap 13 (12-20); Blood Urea Nitrogen 16 mg/dL (9-16); Carbon Dioxide 26 mmol/L (22-29); Chloride 103 mmol/L (96-108); Creatinine Clr Calc Pharmacy 47.5; Estimated Glomerular Filt Rate > 60; Glucose Random 91 mg/dL (60-115); Potassium 4.4 mmol/L (3.3-5.1); Sodium 138 mmol/L (135-145)
[2022-07-07 13:17] LABS: B Type Natriuretic Peptide 37 pg/mL (<100); COVID-19 Test Negative (Negative); Troponin-I High Sensitivity 5.1 ng/L (<3.5-17.0)
[2022-07-07 17:45] VITALS: BP 138/73; PULSE 96; RESP 20; TEMP 36.6; O2SAT 98
--- NOTE | 2022-07-07 17:46 | PC.NURSE ---
Pt reports increasing chronic back pain and sob. Lung sounds clear. Speaking full sentences. Airway patent. RR 20. SPo2 98% RA. Pt reports increasing anxiety and feeling upset about waiting in waiting room. well how long will it be?! pt educated to [facility] process and confirmed that reevaluation will occur.
--- NOTE | 2022-07-07 21:53 | PC.NURSE ---
called x 2 to be brought to bed for evaluation. No answer. Presumed LWT
== END 2022-07-07 21:53 | disposition left against medical advice (07) ==
LOC: HO.ED 22:41
PROVIDERS: Emergency Provider Emergency Medicine
DX: R06.02 Shortness of breath (principal); M54.50 Low back pain, unspecified; Z79.899 Other long term (current) drug therapy; Z20.822 Contact with and (suspected) exposure to COVID-19
CPT/HCPCS: 71046; 80048; 83880; 84484; 87635; 93005; 99283

== ENCOUNTER 2022-07-09 16:30 | Emergency (ER) | payer MEDICARE, MEDICAID, SELFPAY ==
[2022-07-09 16:40] VITALS: BP 144/88; PULSE 88; O2SAT 99
[2022-07-09 18:13] VITALS: BP 154/76; PULSE 82; RESP 18; TEMP 36.8; O2SAT 96; BMI 16.2
[2022-07-09] MEDS: Acetaminophen 325 MG TABLET 650 MG PO (18:17)
[2022-07-09 20:00] VITALS: BP 168/85; PULSE 69; RESP 18; TEMP 36.8; O2SAT 96
[2022-07-09 21:47] VITALS: BP 168/85; PULSE 69; RESP 18; TEMP 36.8
--- NOTE | 2022-07-09 22:09 | ED_ITS ---
HPI - Back Pain/Injury General Chief Complaint: Back Pain/Injury Stated Complaint: SOB/LOW BACK PAIN Source: patient and EMS Mode of arrival: EMS Limitations: no limitations History of Present Illness HPI Narrative: 66-year-old female presents via EMS for evaluation for chronic lower back pain. States that she has anxiety and is asking for Ativan. Reports an old injury from May, and states the pain has been worse and was exacerbated after she bent over yesterday. She does not report any chest pain or pressure, palpitations, abdominal pain, abdominal distention, signs or symptoms indicating cauda equina. MD elicited complaint: back pain Pertinent past history: prior back pain Onset (ago): month(s) Timing: constant Severity: similar to previous episodes Similar Symptoms Previously: Yes Quality: aching Location: lumbar spine Radiation: abdomen Exacerbating factors: movement Relieving factors: none Context: bending Associated symptoms: denies other symptoms Work related injury: No Related Data Home Medications Medication Instructions Recorded Confirmed budesonide 90 mcg/actuation breath 2 puff inhalation BID 04/01/22 04/01/22 activated powder inhaler (Pulmicort Flexhaler) tiotropium bromide 2.5 2 puff inhalation DAILY 04/01/22 04/01/22 mcg/actuation mist for inhalation (Spiriva Respimat) Previous Rx's Medication Instructions Recorded albuterol sulfate 90 mcg/actuation 1 inh inhalation QID PRN shortness 01/19/22 aerosol inhaler (Ventolin HFA) of breath or wheezing #6.7 grams polyethylene glycol 3350 17 17 g PO DAILY PRN constipation 01/19/22 gram/dose oral powder (Miralax) #119 grams cyclobenzaprine 10 mg tablet 10 mg PO Q8H PRN Muscle spasm #14 06/01/22 tabs lidocaine 5 % topical patch 1 patch topical DAILY pain #15 ea 06/01/22 (Lidoderm) naproxen 500 mg tablet 500 mg PO BID PRN pain #10 tabs 06/01/22 oxycodone 5 mg tablet 5 mg PO Q6H PRN pain #10 tabs 06/01/22 hydroxyzine HCl 25 mg tablet 25 mg PO TID PRN anxiety #20 tabs 07/09/22 Allergies Allergy/AdvReac Type Severity Reaction Status Date / Time No Known Allergies Allergy Verified 02/06/22 11:39 [No Known Allergies*] Review of Systems Review of Systems: Constitutional: No Fever, No Chills ENT/Mouth: No Ear Pain, No Hoarseness, No sore throat Eyes: No Eye Pain, No Swelling, No Redness, No Foreign Body Cardiovascular: No Chest Pain, No SOB Respiratory: No Cough, No Dyspnea Gastrointestinal: No Nausea, No Vomiting, No Diarrhea, No abdominal Pain Genitourinary: No Dysuria, No Hematuria Musculoskeletal: positive lower back pain, No Myalgias, No Joint Swelling Skin: No Skin lacerations, No rash Neuro: No Weakness, No Numbness, No Paresthesias, No Loss of Consciousness, No Dizziness, No Headache Psych: No Anxiety/Panic, No Depression Heme/Lymph: no easy bruising, no Lymphadenopathy Endocrine: No Polyuria, No Polydipsia Yes all other systems are reviewed and are negative [facility] Past Medical History Attestation statement: The following information was validated with the patient. Source: old records reviewed Medical History Anxiety COPD (chronic obstructive pulmonary disease) Endometriosis Surgical History H/O: hysterectomy Social History Social History Alcohol intake: never Patient Tobacco Use Status: Former Tobacco user Substance Use Type: Opiates Advance Directives: Yes Advance Directives on File: Yes Advance Directives Date on File: 04/01/22 Physical Exam Vital Signs: Vital Signs: Last Vital Signs Temp 98.2 F 07/09/22 21:47 Pulse 74 07/09/22 23:08 Resp 18 07/09/22 23:08 BP 175/82 H 07/09/22 23:08 Pulse Ox 96 07/09/22 23:08 O2 Del Method 07/09/22 23:08 BMI result Body Mass Index 16.2 Appearance: Alert. Oriented X3. No acute distress. Eyes: Pupils equal, round and reactive to light. ENT: Pharynx normal. Neck: Normal inspection. Neck supple. CVS: Normal heart rate and rhythm. Pulses normal. Respiratory: No respiratory distress. Breath sounds normal. Abdomen: Soft and nontender. Skin: Skin warm and dry. Normal skin color. Normal skin turgor. Extremities: No lower extremity edema. Moves all extremities against resistan ce. Gait well-balanced well coordinated. Neuro: No motor deficit. No sensory deficit. Cranial nerves 2-12 intact Course Course Course Narrative: 66-year-old female presents via EMS for evaluation for chronic lower back pain. States that her back pain has been exacerbated after bending over last night. She describes vague symptoms, and also reports to have shortness of breath. She states to have significant anxiety, and is asking for Ativan and ?something stronger than Tylenol or Motrin? for back pain. It is interesting to note that when she has watched from a distance, she has even unlabored respirations and appears to be in no distress. Once nursing staff or this HYPERION ANALYST enters her room, she starts breathing heavy, and reports distress. I did review her records, and she has a similar presentation. She presented twice to the emergency department on 06/27 when she was denied requested narcotics and benzos diazepam. Patient was referred to her primary care by 2 different providers on 06/27/2022 and this patient stated she did not follow up as she was not able to obtain appointment. This patient does not report any falls or injuries since her evaluation on 06/27, has full range of motion to all extremities, and has stable he vital signs. I offered this patient hydroxyzine, stated that she prefers Ativan, and at this time I do not feel that that medication is indicated. I did tell her that the NSAIDs and Tylenol the 1st line of care for chronic pain, and she was disappointed with my assessment. I did refer her to Dr. Cote for pain management as she does have history of subacute T12 compression fractures, osteopenia, and significant disc degeneration. I did prescribe hydroxyzine, referred to Dr. Cote as well as her primary. I did offer case management physical therapy consult, which she declined at this time. Patient verbalized understanding of and agrees to plan of care discharge home. MDM - Back Pain/Injury Differential Diagnosis Differential diagnosis: Likely lumbar radiculopathy, sciatica, strain of lumbar region and thoracic back pain Medical Records Attestation: I reviewed the patient's medical records. Discharge Plan Discharge Clinical Impression: Chronic back pain, Anxiety Patient Disposition: Home, Self-Care Instructions: Chronic Back Pain (DC), Anxiety (ED) Additional Instructions: You were evaluated for chronic back pain and anxiety. Please follow-up with Dr. Cote for pain management. Alternate Tylenol 650 mg every 6 hours and Motrin 600 mg every 6 hours as needed for pain management. Write down what time you take these medications to prevent accidental overdose. I prescribed hydroxyzine 25 mg every 8 hours as needed for anxiety. Please follow-up with primary care physician. Thank you for choosing this emergency department for evaluation. Please follow-up with primary care physician as needed. Return to the emergency department for any new, concerning, or worsening symptoms. Prescriptions: New hydroxyzine HCl 25 mg tablet 25 mg PO TID PRN (Reason: anxiety) Qty: 20 0RF No Action polyethylene glycol 3350 [Miralax] 17 gram/dose powder 17 g PO DAILY PRN (Reason: constipation) Qty: 119 0RF albuterol sulfate [Ventolin HFA] 90 mcg/actuation HFA aerosol inhaler 1 inh inhalation QID PRN (Reason: shortness of breath or wheezing) Qty: 6.7 0RF naproxen 500 mg tablet 500 mg PO BID PRN (Reason: pain) Qty: 10 0RF cyclobenzaprine 10 mg tablet 10 mg PO Q8H PRN (Reason: Muscle spasm) Qty: 14 0RF lidocaine [Lidoderm] 5 % adhesive patch,medicated 1 patch topical DAILY Qty: 15 0RF Rx Instructions: leave on most painful area for up to 12 hrs. May be substituted oxycodone 5 mg tablet 5 mg PO Q6H PRN (Reason: pain) Qty: 10 0RF Rx Instructions: Partial Fill upon patient request. Pulmicort Flexhaler 90 mcg/actuation aerosol powdr breath activated 2 puff inhalation BID Spiriva Respimat 2.5 mcg/actuation mist 2 puff inhalation DAILY Referrals: Anthony Cote MD [Physician] - 2 weeks (Chronic back pain) Interventions: ED Discharge Assessment Last Done: 07/09/22 23:15 Discharge Date/Time: 07/09/22 23:16
[2022-07-09 23:08] VITALS: BP 175/82; PULSE 74; RESP 18; O2SAT 96
[2022-07-09] MEDS: hydrOXYzine HCL 25 MG TABLET PO (23:11)
[2022-07-09] MEDS: Ibuprofen 400 MG TABLET PO (23:12)
== END 2022-07-09 23:16 | disposition home or self-care (01) ==
PROVIDERS: Emergency Provider Internal Medicine
DX: M54.50 Low back pain, unspecified (principal); F41.1 Generalized anxiety disorder; F43.0 Acute stress reaction; Z79.899 Other long term (current) drug therapy
CPT/HCPCS: 99283; 99284

== ENCOUNTER 2022-07-09 23:57 | Emergency (ER) | payer MEDICARE, MEDICAID, SELFPAY ==
--- NOTE | ~2022-07-09 | XR_ITS ---
EXAMINATION: XR THORACIC SPINE XR LUMBAR SPINE CLINICAL INFORMATION: Compression fracture COMPARISON: 06/27/2022 TECHNIQUE: 2 views of the thoracic spine. 3 views of the lumbar spine. FINDINGS: There are partial compression deformities in the lower thoracic spine most prominently of T9, T11, T12, as well as L1 and to a lesser degree at the superior endplate of L2. These appear without significant change from 06/27/2022. No new acute fracture is seen. Alignment throughout the thoracolumbar spine appears preserved. Sacroiliac joints appear intact. XR/XR lumbar spine 2-3V IMPRESSION: Redemonstrated multilevel compression deformities of the thoracolumbar spine as described above. No significant change identified compared to 06/27/2022.
--- NOTE | ~2022-07-09 | XR_ITS ---
EXAMINATION: XR CHEST CLINICAL INFORMATION: Fall, rib pain COMPARISON: 07/07/2022 TECHNIQUE: 2 views of the chest were obtained. FINDINGS: The lungs are hyperinflated, similar to prior. No focal consolidation is seen. No evidence of pneumothorax, pleural effusion, or pulmonary edema. Cardiac size is within normal limits. Calcification is present at the aortic arch. No displaced fracture is seen. XR/XR chest 2V IMPRESSION: No acute findings identified.
--- NOTE | ~2022-07-09 | XR_ITS ---
EXAMINATION: XR THORACIC SPINE XR LUMBAR SPINE CLINICAL INFORMATION: Compression fracture COMPARISON: 06/27/2022 TECHNIQUE: 2 views of the thoracic spine. 3 views of the lumbar spine. FINDINGS: There are partial compression deformities in the lower thoracic spine most prominently of T9, T11, T12, as well as L1 and to a lesser degree at the superior endplate of L2. These appear without significant change from 06/27/2022. No new acute fracture is seen. Alignment throughout the thoracolumbar spine appears preserved. Sacroiliac joints appear intact. XR/XR thoracic spine 2V IMPRESSION: Redemonstrated multilevel compression deformities of the thoracolumbar spine as described above. No significant change identified compared to 06/27/2022.
[2022-07-10 00:27] VITALS: BP 154/66; PULSE 73; RESP 22; TEMP 36.4; O2SAT 96; BMI 16.2
[2022-07-10 01:48] VITALS: PULSE 75; RESP 18; O2SAT 96
--- NOTE | 2022-07-10 02:31 | ED_ITS ---
HPI - General Adult General Chief complaint: General Medical Stated complaint: back and chest pain Time Seen by Provider: 07/10/22 00:24 Source: patient Mode of arrival: ambulatory Limitations: no limitations History of Present Illness HPI narrative: Patient with history of COPD on steroids multiple times, osteoporosis chronic back pain multiple compression fractures was seen earlier today comes back as still having the pain wants some strong pain medicine says she bent over yesterday was seen here earlier also patient had anxiety was asking for Ativan and some stronger pain medicine patient has been here multiple times for same Related Data Home Medications Medication Instructions Recorded Confirmed budesonide 90 mcg/actuation breath 2 puff inhalation BID 04/01/22 04/01/22 activated powder inhaler (Pulmicort Flexhaler) tiotropium bromide 2.5 2 puff inhalation DAILY 04/01/22 04/01/22 mcg/actuation mist for inhalation (Spiriva Respimat) Previous Rx's Medication Instructions Recorded albuterol sulfate 90 mcg/actuation 1 inh inhalation QID PRN shortness 01/19/22 aerosol inhaler (Ventolin HFA) of breath or wheezing #6.7 grams polyethylene glycol 3350 17 17 g PO DAILY PRN constipation 01/19/22 gram/dose oral powder (Miralax) #119 grams cyclobenzaprine 10 mg tablet 10 mg PO Q8H PRN Muscle spasm #14 06/01/22 tabs lidocaine 5 % topical patch 1 patch topical DAILY pain #15 ea 06/01/22 (Lidoderm) naproxen 500 mg tablet 500 mg PO BID PRN pain #10 tabs 06/01/22 oxycodone 5 mg tablet 5 mg PO Q6H PRN pain #10 tabs 06/01/22 hydroxyzine HCl 25 mg tablet 25 mg PO TID PRN anxiety #20 tabs 07/09/22 diclofenac epolamine 1.3 % 1 patch topical BID #30 ea 07/10/22 transdermal 12 hour patch Allergies Allergy/AdvReac Type Severity Reaction Status Date / Time No Known Allergies Allergy Verified 02/06/22 11:39 [No Known Allergies*] Review of Systems Review of Systems: Yes all other systems are reviewed and are negative PMFSH Past Medical History Medical History Anxiety COPD (chronic obstructive pulmonary disease) Endometriosis Surgical History H/O: hysterectomy Social History Social History Alcohol intake: never Patient Tobacco Use Status: Former Tobacco user Substance Use Type: Opiates Advance Directives: Yes Advance Directives on File: Yes Advance Directives Date on File: 04/01/22 Physical Exam ED Vital Signs: Vital Signs - 24 hr 07/10/22 00:27 07/10/22 01:48 Temperature 97.5 F Pulse Rate 73 75 Respiratory Rate 22 H 18 Blood Pressure 154/66 H Pulse Oximetry 96 96 Oxygen Delivery Method Room Air Room Air BMI result Body Mass Index 16.2 Appearance: Alert. Oriented X3. No acute distress frail kyphotic patient. Neck: Normal inspection. Neck supple. CVS: Normal heart rate and rhythm. Pulses normal. Respiratory: No respiratory distress. Equal air entry bilateral, no wheezing/rales/rhonchi Abdomen: Soft and nontender. Bowel sounds are present, Skin: Skin warm and dry. Normal skin color. Normal skin turgor. Back: Diffuse tenderness in back on lumbar and thoracic spine and ribs Extremities: No lower extremity edema. No calf tenderness Neuro: Oriented X 3. No motor deficit. No sensory deficit.No cerebellar signs , cranial nerves II-XII intact patient ambulatory Medical Decision Making [facility] Narrative Medical decision making narrative: Patient thoracic and lumbar spine x-ray showed multiple compression fractures similar to that in the past x-ray advised to follow-up PCP, also patient was given diclofenac sodium patch for the pain Discharge Plan Discharge Clinical Impression: Compression fracture of vertebrae Patient Disposition: Home, Self-Care Instructions: Vertebral Compression Fracture (ED) Additional Instructions: Take meds as prescribed for pain Follow with PCP Prescriptions: New diclofenac epolamine 1.3 % patch 12 hour 1 patch topical BID Qty: 30 0RF No Action polyethylene glycol 3350 [Miralax] 17 gram/dose powder 17 g PO DAILY PRN (Reason: constipation) Qty: 119 0RF albuterol sulfate [Ventolin HFA] 90 mcg/actuation HFA aerosol inhaler 1 inh inhalation QID PRN (Reason: shortness of breath or wheezing) Qty: 6.7 0RF naproxen 500 mg tablet 500 mg PO BID PRN (Reason: pain) Qty: 10 0RF cyclobenzaprine 10 mg tablet 10 mg PO Q8H PRN (Reason: Muscle spasm) Qty: 14 0RF lidocaine [Lidoderm] 5 % adhesive patch,medicated 1 patch topical DAILY Qty: 15 0RF Rx Instructions: leave on most painful area for up to 12 hrs. May be substituted oxycodone 5 mg tablet 5 mg PO Q6H PRN (Reason: pain) Qty: 10 0RF Rx Instructions: Partial Fill upon patient request. Pulmicort Flexhaler 90 mcg/actuation aerosol powdr breath activated 2 puff inhalation BID Spiriva Respimat 2.5 mcg/actuation mist 2 puff inhalation DAILY hydroxyzine HCl 25 mg tablet 25 mg PO TID PRN (Reason: anxiety) Qty: 20 0RF Interventions: ED Discharge Assessment Last Done: 07/10/22 05:07 Discharge Date/Time: 07/10/22 05:11
--- NOTE | 2022-07-10 03:04 | PC.NURSE ---
pt has been sleeping with no s/s of resp distress. sat 96% while awake and 95-96% while sleeping. pt is calm till approached. pt fears going home and is aware of the plan of care. xray negative and wiating further orders.
[2022-07-10] MEDS: traMADoL HCL 50 MG TABLET PO (05:03)
--- NOTE | 2022-07-10 05:06 | PC.NURSE ---
pt has been resting with no difficulty breathing, when in the room pt becomes anxiouse and her breathing pattern changes to short breaths rr increases and pt has auditory wheezing that resolves when pt is alone.
== END 2022-07-10 05:11 | disposition home or self-care (01) ==
PROVIDERS: Emergency Provider Internal Medicine
DX: M48.54XG Collapsed vertebra, not elsewhere classified, thoracic region, subsequent encounter for fracture with delayed healing (principal); M48.56XG Collapsed vertebra, not elsewhere classified, lumbar region, subsequent encounter for fracture with delayed healing; Z76.5 Malingerer [conscious simulation]
CPT/HCPCS: 71046; 72070; 72100; 99283

== ENCOUNTER 2022-07-10 07:54 | Emergency (ER) | payer MEDICARE, MEDICAID, SELFPAY ==
[2022-07-10 07:57] VITALS: BP 156/101; PULSE 84; RESP 15; TEMP 36; O2SAT 97; BMI 16.2
--- NOTE | 2022-07-10 10:17 | ED_ITS ---
HPI - Back Pain/Injury General Chief Complaint: Back Pain/Injury Stated Complaint: Pain from fracture/just discharged Time Seen by Provider: 07/10/22 09:24 Source: patient Mode of arrival: ambulatory Limitations: no limitations History of Present Illness HPI Narrative: Patient presents emergency department for evaluation of lower back pain. Patient was discharged from the emergency department 05:00 o'clock this morning, she waited in the waiting room for a few hours before signing back pain. Patient ambulated from the waiting room in to room for evaluation. Patient had not left yet picked up prescription that she was prescribed for pain. She states that she is unable to walk and wants to be admitted into the hospital. I did discuss with her this would not be an indication for hospitalization. She is agreeable to having a physical therapy evaluation at this time which she previously was not agreeable to. Denies recent precipitating injury, fevers, chills, burning with micturition, urinary frequency/urgency/hesitancy, bladder or bowel dysfunction, numbness or tingling of the perineum or bilateral legs. Denies any recent surgical procedures, any known immune compromising conditions, personal history of cancer, or IV drug usage. MD elicited complaint: back pain Related Data Home Medications Medication Instructions Recorded Confirmed budesonide 90 mcg/actuation breath 2 puff inhalation BID 04/01/22 04/01/22 activated powder inhaler (Pulmicort Flexhaler) tiotropium bromide 2.5 2 puff inhalation DAILY 04/01/22 04/01/22 mcg/actuation mist for inhalation (Spiriva Respimat) Previous Rx's Medication Instructions Recorded albuterol sulfate 90 mcg/actuation 1 inh inhalation QID PRN shortness 01/19/22 aerosol inhaler (Ventolin HFA) of breath or wheezing #6.7 grams polyethylene glycol 3350 17 17 g PO DAILY PRN constipation 01/19/22 gram/dose oral powder (Miralax) #119 grams cyclobenzaprine 10 mg tablet 10 mg PO Q8H PRN Muscle spasm #14 06/01/22 tabs lidocaine 5 % topical patch 1 patch topical DAILY pain #15 ea 06/01/22 (Lidoderm) naproxen 500 mg tablet 500 mg PO BID PRN pain #10 tabs 06/01/22 oxycodone 5 mg tablet 5 mg PO Q6H PRN pain #10 tabs 06/01/22 hydroxyzine HCl 25 mg tablet 25 mg PO TID PRN anxiety #20 tabs 07/09/22 diclofenac epolamine 1.3 % 1 patch topical BID #30 ea 07/10/22 transdermal 12 hour patch Allergies Allergy/AdvReac Type Severity Reaction Status Date / Time No Known Allergies Allergy Verified 02/06/22 11:39 [No Known Allergies*] Review of Systems Review of Systems: Constitutional: No weight loss, fever, chills, weakness or fatigue. HEENT: No visual loss, blurred vision, double vision. No hearing loss, sneezing, congestion, runny nose or sore throat. Skin: No rash or itching. Cardiovascular: No chest pain, chest pressure or chest discomfort. No palpitations or pedal edema. Respiratory: No shortness of breath, cough or sputum production. Gastrointestinal: No anorexia, nausea, vomiting or diarrhea. No abdominal pain or blood in stool. Genitourinary: No burning micturition. No urinary frequency or incontinence. Neurologic: No headache, dizziness, syncope, unilateral weakness, ataxia, numbness or tingling in the extremities. No change in bowel or bladder control. Musculoskeletal: + Back pain as noted in HPI. No joint pain or stiffness. Hematologic: No bleeding or bruising. Lymphatics: No enlarged lymph nodes. Psychiatric:No depression or anxiety. Endocrine: No reports of sweating. No cold or heat intolerance. No polyuria or polydipsia. Yes all other systems are reviewed and are negative PMFSH Past Medical History Attestation statement: The following information was validated with the patient. Source: old records reviewed Medical History Anxiety COPD (chronic obstructive pulmonary disease) Endometriosis Surgical History H/O: hysterectomy Social History Social History Alcohol intake: never Patient Tobacco Use Status: Former Tobacco user Substance Use Type: Opiates Advance Directives: Yes Advance Directives on File: Yes Advance Directives Date on File: 04/01/22 Physical Exam Vital Signs: Vital Signs: Last Vital Signs Temp 97.8 F 07/10/22 10:28 Pulse 82 07/10/22 10:28 Resp 18 07/10/22 10:28 BP 142/90 H 07/10/22 10:28 Pulse Ox 96 07/10/22 10:28 O2 Del Method 07/10/22 10:28 BMI result Body Mass Index 16.2 Appearance: Alert.?Oriented to person, place and time. No acute distress.?Normal affect. Eyes: Pupils equal, round and reactive to light.? ENT: Pharynx normal.?? Neck: Normal inspection.? Neck supple.?? CVS: Heart sounds normal. Normal heart rate and rhythm.? Pulses normal; bilateral radial pulses 2+, bilateral posterior tibial/dorsalis pedis pulses 2+.? Respiratory: No respiratory distress.? Lung sounds clear to auscultation bilaterally?? Abdomen: Soft and non-tender. Normoactive bowel sounds. No pulsatile mass.?? Skin: Skin warm and dry.? Normal skin color.? Normal skin turgor.?? Extremities: No lower extremity edema.? No calf ttp? Back: + mild paraspinal muscular tenderness from lumbar region to coccyx. No CVA tenderness. No midline spinal tenderness, step-off's, or deformity. Full ROM intact in bilateral lower extremities. Straight leg test positive on right; Straight leg test positive on left. No rashes, lesions, areas of induration or fluctuance, or signs of infection noted., Neuro: Moves all extremities spontaneously. 5/5 strength in hip extension/flexion, abduction, adduction. Sensation to light touch intact bilaterally. Patellar and Achilles reflex 2+ bilaterally. No ataxia, gait slow and steady. No focal neuro deficits. Course Course Course Narrative: Patient is a 66-year-old female who presents to the emergency department for evaluation of lower back pain. She does state that it has been exacerbated over the past few weeks, 1 but originally began in May 2022 when she was diagnosed with a possible new L1 compression fracture. She has been evaluated in this emergency department multiple times this month including yesterday and earlier today for the same chief complaint. She underwent x-ray imaging of the thoracic and lumbar spine with no acute findings. She has also been referred to follow- up with her primary care provider as well as pain management but states she has not received appointments with either. Yesterday she was advised to use Tylenol/ibuprofen, and was given a prescription yesterday for diclofenac patch. At this time, suspect that pain is most likely secondary to her compression fractures, subacute and chronic, although cannot completely exclude herniated disc. On neurological exam there are no deficits. Not consistent with spinal infection, epidural abscess, AAA, or dissection. No high risk past medical history including incontinence, fever, immunosuppression, recent surgery or lumbar puncture, coagulopathy, significant trauma, recent unintentional weight loss, pulsatile mass, history of cancer, history of TB, history of IV drug use that would warrant MRI or CT. Declines genitourinary symptoms, and declines providing urinalysis for evaluation, although cannot completely exclude urinary tract infection, symptoms have been chronic. On exam no concern for cauda equina syndrome. No imaging is currently indicated at this time. Will have patient evaluated by physical therapy, and involve Case Management for disposition planning. Reevaluation(s) Reevaluation #1: Patient at this time states that she would like to leave. Her ride is here. Declines physical therapy evaluation at this time. She was ambulatory out of the emergency department with steady gait. Time: 12:40 MDM - Back Pain/Injury Medical Records Attestation: I reviewed the patient's medical records. Discharge Plan Discharge Clinical Impression: Lumbar back pain Patient Disposition: Home, Self-Care Additional Instructions: You were offered Physical therapy evaluation, however he then stated that her ride was here and he wished to leave at this time. Please peanut picker prescriptions from pharmacy as prescribed earlier today. Follow-up with your primary care provider. Return to emergency department any new or worsening symptoms or concerns. Prescriptions: No Action polyethylene glycol 3350 [Miralax] 17 gram/dose powder 17 g PO DAILY PRN (Reason: constipation) Qty: 119 0RF albuterol sulfate [Ventolin HFA] 90 mcg/actuation HFA aerosol inhaler 1 inh inhalation QID PRN (Reason: shortness of breath or wheezing) Qty: 6.7 0RF naproxen 500 mg tablet 500 mg PO BID PRN (Reason: pain) Qty: 10 0RF cyclobenzaprine 10 mg tablet 10 mg PO Q8H PRN (Reason: Muscle spasm) Qty: 14 0RF lidocaine [Lidoderm] 5 % adhesive patch,medicated 1 patch topical DAILY Qty: 15 0RF Rx Instructions: leave on most painful area for up to 12 hrs. May be substituted oxycodone 5 mg tablet 5 mg PO Q6H PRN (Reason: pain) Qty: 10 0RF Rx Instructions: Partial Fill upon patient request. diclofenac epolamine 1.3 % patch 12 hour 1 patch topical BID Qty: 30 0RF Pulmicort Flexhaler 90 mcg/actuation aerosol powdr breath activated 2 puff inhalation BID Spiriva Respimat 2.5 mcg/actuation mist 2 puff inhalation DAILY hydroxyzine HCl 25 mg tablet 25 mg PO TID PRN (Reason: anxiety) Qty: 20 0RF
[2022-07-10 10:28] VITALS: BP 142/90; PULSE 82; RESP 18; TEMP 36.6; O2SAT 96
--- NOTE | 2022-07-10 12:48 | MHC.CM.ED ---
Received case management consult from Celia PHILLIPS. Patient was d/c'd from ER this morning. Stayed in waiting room. Doesn't feel like she can safely return home. Was agreeable to case management consult and physical therapy eval. Patient found transportation home before being seen by physical therapy. No additional case management needs noted.
== END 2022-07-10 13:03 | disposition home or self-care (01) ==
PROVIDERS: Emergency Provider Emergency Medicine
DX: M54.50 Low back pain, unspecified (principal)
CPT/HCPCS: 71046; 72070; 72100; 96365; 97161; 99283

== ENCOUNTER 2022-07-11 11:21 | Emergency (ER) | payer MEDICARE, MEDICAID, SELFPAY ==
[2022-07-11 11:29] VITALS: BP 147/80; BP 160/82; PULSE 102; PULSE 77; RESP 22; TEMP 36.6; O2SAT 97; O2SAT 99; BMI 13.4
--- NOTE | 2022-07-11 11:59 | ED.BACK ---
HPI - Back Pain/Injury General Chief Complaint: Back Pain/Injury <BRIANNA Poole - Last Filed: 07/11/22 19:25> Stated Complaint: BACK PAIN,SEEN RECENTLY FOR SAME <BRIANNA Poole - Last Filed: 07/11/22 19:25> Time Seen by Provider: 07/11/22 11:25 <BRIANNA Poole - Last Filed: 07/11/22 19:25> Source: patient and EMS <BRIANNA Poole - Last Filed: 07/11/22 19:25> Mode of arrival: EMS <BRIANNA Poole Last Filed: 07/11/22 19:25> Limitations: other (Poor historian) <BRIANNA Poole - Last Filed: 07/11/22 19:25> History of Present Illness HPI Narrative: 66-year-old female with a past medical history of COPD, anxiety, endometriosis, benzoate abuse and dependency who has a history of chronic back pain with multiple compression fractures to her spine presenting to the ED via EMS with complaints of acute on chronic back pain over the past few months. She reports that she has been self treating at home with heroin. She reports that she is snorting approximately 1 bag once or every other day. She reports that she needs help she feels like she cannot take care of herself at home and she also needs help with her drug usage. She reports she last used a few days ago then she reports that she used yesterday therefore I am unsure when she actually last use heroin. She denies any other drug uses. She denies any alcohol usage. She denies any SI/HI/auditory visualizations thoughts of self-injury. She denies any IV drug use. She denies any fevers, chills, dizziness, headaches, neck pain/stiffness, trouble swallowing or breathing, chest pain or shortness of breath, dyspnea on exertion, orthopnea, palpitations, paresthesias, abdominal pain, flank pain, dysuria, hematuria, abnormal vaginal discharge, black or bloody stools, recent travel or sick contacts, lower extremity edema or calf tenderness, rashes or urinary bowel incontinence or retention, saddle anesthesia or any weakness or any other symptoms complaints or concerns at this time. She denies any recent falls or trauma. <BRIANNA Poole - Last Filed: 07/11/22 19:25> MD elicited complaint: back pain <BRIANNA Poole - Last Filed: 07/11/22 19:25> Pertinent past history: prior back pain (History of compression fractures) <BRIANNA Poole - Last Filed: 07/11/22 19:25> Onset (ago): month(s) <BRIANNA Poole - Last Filed: 07/11/22 19:25> Timing: constant <BRIANNA Poole - Last Filed: 07/11/22 19:25> Severity: moderate <BRIANNA Poole - Last Filed: 07/11/22 19:25> Similar Symptoms Previously: Yes <BRIANNA Poole - Last Filed: 07/11/22 19:25> Quality: aching <BRIANNA Poole - Last Filed: 07/11/22 19:25> Location: lumbar spine and thoracic spine <BRIANNA Poole - Last Filed: 07/11/22 19:25> Radiation: chest (Rib cage similar since May) <BRIANNA Poole - Last Filed: 07/11/22 19:25> Exacerbating factors: movement, supine positioning, sitting upright, walking, deep breaths and lifting <BRIANNA Poole - Last Filed: 07/11/22 19:25> Relieving factors: none <BRIANNA Poole - Last Filed: 07/11/22 19:25> Context: unknown <BRIANNA Poole - Last Filed: 07/11/22 19:25> Associated symptoms: denies other symptoms <BRIANNA Poole - Last Filed: 07/11/22 19:25> Treatments prior to arrival: other (She reports she has been taking [id number] Motrin Tylenol no symptomatic relief) <BRIANNA Poole - Last Filed: 07/11/22 19:25> Work related injury: No <BRIANNA Poole - Last Filed: 07/11/22 19:25> Related Data Home Medications: Home Medications Medication Instructions Recorded Confirmed clonazepam 0.5 mg tablet 1 tab PO BEDTIME PRN Anxiety 07/11/22 07/11/22 clonazepam 1 mg tablet 1 tab PO QAM PRN Anxiety 07/11/22 07/11/22 fluoxetine 10 mg capsule 1 cap PO DAILY 07/11/22 07/11/22 fluoxetine 40 mg capsule 1 cap PO DAILY 07/11/22 07/11/22 tiotropium bromide 2.5 2 puff inhalation DAILY 07/11/22 07/11/22 mcg/actuation mist for inhalation (Spiriva Respimat) Previous Rx's Medication Instructions Recorded albuterol sulfate 90 mcg/actuation 1 inh inhalation QID PRN shortness 01/19/22 aerosol inhaler (Ventolin HFA) of breath or wheezing #6.7 grams hydroxyzine HCl 25 mg tablet 25 mg PO TID PRN anxiety #20 tabs 07/09/22 <BRIANNA Poole Last Filed: 07/11/22 19:25> Allergies/Adverse Reactions: Allergies Allergy/AdvReac Type Severity Reaction Status Date / Time No Known Allergies Allergy Verified 02/06/22 11:39 [No Known Allergies*] <BRIANNA Poole Last Filed: 07/11/22 19:25> Review of Systems Review of Systems: Constitutional : No trauma, No Weight loss, No Fever, No Chills, ENT/Mouth : No Hearing loss, No Ear Pain, No Nasal Congestion, No Sinus Pain, No Hoarseness, No sore throat, No Rhinorrhea, No Swallowing Difficulty Cardiovascular : No Chest Pain, No SOB Respiratory : No Cough, No Dyspnea Gastrointestinal : No Nausea, No Vomiting, No Diarrhea, No abdominal Pain, No Hematochezia, No Melena Genitourinary : No Dysuria, No Urinary Frequency, No Hematuria, No Urinary or Bowel Incontinence/retention Musculoskeletal : + Back pain, No neck pain, No joint stiffness, No joint swelling Skin : No Skin Lesions, No rash or signs of infection Neuro : No Weakness, No Numbness, No Paresthesias, No headache, no loss of bowel or bladder incontinence, no saddle anesthesia, Focal weakness, + radiation Denies history of IV drug usage. <BRIANNA Poole Last Filed: 07/11/22 19:25> Yes all other systems are reviewed and are negative <BRIANNA Poole Last Filed: 07/11/22 19:25> [facility] Past Medical History Attestation statement: The following information was validated with the patient. <BRIANNA Poole Last Filed: 07/11/22 19:25> Source: old records reviewed and nursing notes reviewed <BRIANNA Poole - Last Filed: 07/11/22 19:25> Medical History: Medical History Anxiety COPD (chronic obstructive pulmonary disease) Endometriosis <BRIANNA Poole - Last Filed: 07/11/22 19:25> Surgical History: Surgical History H/O: hysterectomy <BRIANNA Poole - Last Filed: 07/11/22 19:25> Social History Social History: Social History Alcohol intake: never Patient Tobacco Use Status: Former Tobacco user Substance Use Type: Opiates Advance Directives: Yes Advance Directives on File: Yes Advance Directives Date on File: 04/01/22 <BRIANNA Poole - Last Filed: 07/11/22 19:25> Physical Exam Vital Signs: Vital Signs: Last Vital Signs Temp 97.8 F 07/12/22 02:38 Pulse 84 07/12/22 02:38 Resp 16 07/12/22 02:38 BP 143/83 H 07/12/22 02:38 Pulse Ox 94 07/12/22 02:38 O2 Del Method 07/12/22 02:38 BMI result Body Mass Index 13.4 vital signs have been reviewed as normal and appeared to be correct. Blood pressure 147/80. Heart rate normal. Respiration rate 22. Temperature normal. Oxygen saturation normal. <BRIANNA Poole - Last Filed: 07/11/22 19:25> Vital Signs: Last Vital Signs Temp 97.8 F 07/12/22 02:38 Pulse 84 07/12/22 02:38 Resp 16 07/12/22 02:38 BP 143/83 H 07/12/22 02:38 Pulse Ox 94 07/12/22 02:38 O2 Del Method 07/12/22 02:38 BMI result Body Mass Index 13.4 <Alem Sol MD - Last Filed: 07/12/22 05:04> Appearance: Alert. Oriented X3. No acute distress. Patient is very thin for weight. Head: Normal external exam. Normocephalic. Atraumatic. Eyes: PERRLA. EOMI. Conjunctiva and sclera normal. Eyelids normal. ENT: Pharynx normal. Uvula midline. Moist mucous membranes. No trismus noted. No drooling noted. No muffled voice noted. Neck: Normal inspection. Neck supple. FROM. No adenopathy. Thyroid Normal. No meningeal signs. No neck mass noted. CVS: Normal heart rate and rhythm. Heart sound normal. No murmurs noted. Pulses normal throughout. Respiratory: No respiratory distress. Painless inspiration. Breath sounds normal. No wheezes/rales/rhonchi noted. Chest nontender. No accessory muscle usage noted or decreased air movement noted. Abdomen: Soft and nontender. Bowel sounds normal in all 4 quadrants. No distention noted. No organomegaly noted. No visible injury noted. Back: No CVA tenderness. Full range of motion noted. No obvious deformities, or edema. Mild para-spinal muscular tenderness from thoracic to lumbar region to coccyx. Full ROM in back and lower extremities. 5/5 strength hip extension/flexion, abduction, adduction. Mild Lumbar pain with hip flexion against resistance. Straight leg raise test negative on right; Straight leg raise test negative on left; Reflexes normal ankle and knee bilaterally; EHL motor strength normal bilaterally. No rashes/lesion/induration/fluctuance or signs infection noted. Skin: Skin warm and dry. Normal skin color. Poor skin turgor. No rashes/lesions/lacerations noted. Extremities: Extremities exhibit normal range of motion. Extremities nontender. Neuro: Oriented X 3. No motor deficit. No sensory deficit. Reflexes normal. Patient has a normal steady gait. <BRIANNA Poole - Last Filed: 07/11/22 19:25> Course Course Course Narrative: 11:45am - 66-year-old female with a past medical history of COPD, anxiety, endometriosis, benzoate abuse and dependency who has a history of chronic back pain with multiple compression fractures to her spine presenting to the ED via EMS with complaints of acute on chronic back pain over the past few months. She reports that she has been self treating at home with heroin. She reports that she is snorting approximately 1 bag once or every other day. She reports that she needs help she feels like she cannot take care of herself at home and she also needs help with her drug usage. She reports she last used a few days ago then she reports that she used yesterday therefore I am unsure when she actually last use heroin. She denies any other drug uses. She denies any alcohol usage. She denies any SI/HI/auditory visualizations thoughts of self-injury. She denies any IV drug use. On exam she has a normal steady gait. No neuro deficits noted. Reflexes intact bilateral and dyspnea on all 4 extremities. Abdomen is soft and nontender. No CVA tenderness is noted. No flank pain is noted. No rashes are noted. No indication for MRI or CT scan at this time. Plan: Patient was seen here on 06/27/2022 and had labs which were all within normal limits. She also had x-rays of her thoracic and lumbar spine on 07/10/2022 which revealed a chronic fractures that she has been having no acute processes were noted. She has also been seen here 14 times this year for similar complaint. In the month of June she has been seen here 6 times including today. I am concerned that the patient has drug usage which she admits to today. She is agreeable to physical therapy for possible short-term rehab reports that she feels like she cannot take care of herself at home due to her chronic pain. I also discussed with her about possible starting Suboxone or methadone and she is interested in starting 1 of these although she is not being completely truthful about when she last used drugs/snorting heroin. Therefore explained to her that we should obtain a urine, drug urine screen and care team/detox. Patient agreeable to this. Otherwise patient is cleared to be evaluated at this time. <BRIANNA Poole - Last Filed: 07/11/22 19:25> Reevaluation(s) Reevaluation #1: - UA within normal limits. - patient positive for opioids fentanyl again. Negative for all other drugs. - labs reviewed patient with an elevated white blood cell count [id number]. Random glucose 133. Otherwise all other labs are within normal limits. - patient negative for COVID. - patient was seen by care team and patient is requesting to be voluntary inpatient bed search for increased anxiety/depression. She denies any SI/HI/auditory visualizations thoughts of self-injury. Mainly related to her drug use that she is anxious and depressed. Will continue to monitor. <BRIANNA Poole - Last Filed: 07/11/22 19:25> Time: 13:34 <BRIANNA Poole - Last Filed: 07/11/22 19:25> Reevaluation #2: - patient was cleared by the care team is requesting short-term rehab. Therefore case management place at this time. Patient would be a good candidate for methadone or Suboxone although would have to start tomorrow due to we are unsure when she last used any drugs. Continue to monitor. <BRIANNA Poole - Last Filed: 07/11/22 19:25> Time: 17:05 <BRIANNA Poole - Last Filed: 07/11/22 19:25> Reevaluation #3: Patient had an uneventful night, vitals stable. Case management suggested patient may benefit from short-term rehab. However, due to patient's substance abuse, it may be very difficult to place the patient. It, it is likely that short-term rehab may be a better option for the patient, to be discussed with case management. <Alem Sol MD - Last Filed: 07/12/22 05:04> Time: 05:03 <Alem Sol MD - Last Filed: 07/12/22 05:04> Consultations Time: 17:05 <BRIANNA Poole - Last Filed: 07/11/22 19:25> MDM - Back Pain/Injury Medical Records Attestation: I reviewed the patient's medical records. <BRIANNA Poole - Last Filed: 07/11/22 19:25> Lab Data Attestation: I reviewed the patient's lab results. <BRIANNA Poole - Last Filed: 07/11/22 19:25> Result diagrams: : 07/11/22 14:48 07/11/22 14:48 <BRIANNA Poole - Last Filed: 07/11/22 19:25> Labs: Lab Results 07/11/22 07/11/22 07/11/22 Range/Units 11:50 11:50 14:22 WBC (4.8-10.8) X10*3/uL RBC (4.20-5.50) X10*6/uL Hgb (12.0-16.0) g/dl Hct (37.0-47.0) % MCV (80.0-98.0) fL MCH (27.0-33.0) pg MCHC (31.0-35.0) g/dl RDW (11.0-16.0) % Plt Count (160-400) X10*3/uL MPV (9.4-12.3) fL Immature Gran % (Auto) (0.0-0.4) % Neut % (Auto) (45-73) % Lymph % (Auto) (20-40) % [place] % (Auto) (2-11) % Eos % (Auto) (0-4) % Baso % (Auto) (0-2) % Lymph # (Auto) (1.2-4.9) X10*3/uL [place] # (Auto) (0.1-1.2) X10*3/uL Eos # (Auto) (0.0-0.4) X10*3/uL Baso # (Auto) (0.0-0.2) X10*3/uL Abs Immat Gran (auto) (0.00-0.03) X10*3/uL Absolute Neuts (auto) (2.0-8.3) x10*3/uL Absolute Nucleated RBC (0.0-0.012) X10*3/uL Nucleated RBC % (auto) (0.0-0.2) /100WBC Smear Tech's Comments Sodium (135-145) mmol/L Potassium (3.3-5.1) mmol/L Chloride (96-108) mmol/L Carbon Dioxide (22-29) mmol/L Anion Gap (12-20) BUN (9-16) mg/dL Creatinine (0.5-1.4) mg/dL Estim Creat Clear Calc Estimated GFR Random Glucose (60-115) mg/dL Calcium (8.4-10.2) mg/dL Magnesium (1.6-2.6) mg/dL Total Bilirubin (0.0-1.0) mg/dL AST (5-31) U/L ALT (0-31) U/L Alkaline Phosphatase (39-117) U/L Total Protein (6.5-8.0) g/dL Albumin (3.5-5.0) g/dL Urine Color Yellow Urine Appearance Hazy Urine pH 6.0 (5.0-8.0) Ur Specific [place] 1.015 (1.005-1.025) Urine Protein Negative (Neg-Trace) mg/dL Urine Glucose (UA) Negative (Negative) mg/dL Urine Ketones Trace (Negative) mg/dL Urine Blood Trace (Negative) Urine Nitrite Negative (Negative) Ur Leukocyte Esterase Negative (Negative) Urine RBC 3-5 H (0-2) /HPF Urine WBC 0-5 (0-5) /HPF Ur Squamous Epith Cells 3-5 (0-2) /HPF Ur Renal Epithelial Cell Present Urine Bacteria None Seen (None Seen) Hyaline Casts 0-2 (0-2) /LPF Urine Yeast Present Urine Opiates Screen POSITIVE H (Not Detect) Urine Fentanyl Screen POSITIVE H (Not Detect) Ur Barbiturates Screen Not Detected (Not Detect) Ur Phencyclidine Scrn Not Detected (Not Detect) Ur Amphetamines Screen Not Detected (Not Detect) U Benzodiazepines Scrn Not Detected (Not Detect) Urine Cocaine Screen Not Detected (Not Detect) U Marijuana (THC) Screen Not Detected (Not Detect) COVID-19 ([facility]A) Negative (Negative) COVID-19 Clin Com See Note 07/11/22 07/11/22 Range/Units 14:48 14:48 WBC 11.6 H (4.8-10.8) X10*3/uL RBC 4.51 (4.20-5.50) X10*6/uL Hgb 13.3 (12.0-16.0) g/dl Hct 38.6 (37.0-47.0) % MCV 85.6 (80.0-98.0) fL MCH 29.5 (27.0-33.0) pg MCHC 34.5 (31.0-35.0) g/dl RDW 12.9 (11.0-16.0) % Plt Count 256 (160-400) X10*3/uL MPV 9.9 (9.4-12.3) fL Immature Gran % (Auto) 0.3 (0.0-0.4) % Neut % (Auto) 95.4 H (45-73) % Lymph % (Auto) 2.8 L (20-40) % [place] % (Auto) 1.2 L (2-11) % Eos % (Auto) 0.0 (0-4) % Baso % (Auto) 0.3 (0-2) % Lymph # (Auto) 0.3 L (1.2-4.9) X10*3/uL [place] # (Auto) 0.1 (0.1-1.2) X10*3/uL Eos # (Auto) 0.0 (0.0-0.4) X10*3/uL Baso # (Auto) 0.0 (0.0-0.2) X10*3/uL Abs Immat Gran (auto) 0.03 (0.00-0.03) X10*3/uL Absolute Neuts (auto) 11.1 H (2.0-8.3) x10*3/uL Absolute Nucleated RBC 0.000 (0.0-0.012) X10*3/uL Nucleated RBC % (auto) 0.0 (0.0-0.2) /100WBC Smear Tech's Comments VERIFIED Sodium 136 (135-145) mmol/L Potassium 3.6 (3.3-5.1) mmol/L Chloride 97 (96-108) mmol/L Carbon Dioxide 27 (22-29) mmol/L Anion Gap 16 (12-20) BUN 11 (9-16) mg/dL Creatinine 0.75 (0.5-1.4) mg/dL Estim Creat Clear Calc 40.3 Estimated GFR > 60 Random Glucose 133 H (60-115) mg/dL Calcium 9.5 (8.4-10.2) mg/dL Magnesium 1.8 (1.6-2.6) mg/dL Total Bilirubin 0.7 (0.0-1.0) mg/dL AST 13 (5-31) U/L ALT 9 (0-31) U/L Alkaline Phosphatase 81 (39-117) U/L Total Protein 6.9 D (6.5-8.0) g/dL Albumin 4.4 D (3.5-5.0) g/dL Urine Color Urine Appearance Urine pH (5.0-8.0) Ur Specific [place] (1.005-1.025) Urine Protein (Neg-Trace) mg/dL Urine Glucose (UA) (Negative) mg/dL Urine Ketones (Negative) mg/dL Urine Blood (Negative) Urine Nitrite (Negative) Ur Leukocyte Esterase (Negative) Urine RBC (0-2) /HPF Urine WBC (0-5) /HPF Ur Squamous Epith Cells (0-2) /HPF Ur Renal Epithelial Cell Urine Bacteria (None Seen) Hyaline Casts (0-2) /LPF Urine Yeast Urine Opiates Screen (Not Detect) Urine Fentanyl Screen (Not Detect) Ur Barbiturates Screen (Not Detect) Ur Phencyclidine Scrn (Not Detect) Ur Amphetamines Screen (Not Detect) U Benzodiazepines Scrn (Not Detect) Urine Cocaine Screen (Not Detect) U Marijuana (THC) Screen (Not Detect) COVID-19 (ROSA) (Negative) COVID-19 Clin Com <BRIANNA Poole - Last Filed: 07/11/22 19:25> Lab Results 07/11/22 07/11/22 07/11/22 Range/Units 11:50 11:50 14:22 WBC (4.8-10.8) X10*3/uL RBC (4.20-5.50) X10*6/uL Hgb (12.0-16.0) g/dl Hct (37.0-47.0) % MCV (80.0-98.0) fL MCH (27.0-33.0) pg MCHC (31.0-35.0) g/dl RDW (11.0-16.0) % Plt Count (160-400) X10*3/uL MPV (9.4-12.3) fL Immature Gran % (Auto) (0.0-0.4) % Neut % (Auto) (45-73) % Lymph % (Auto) (20-40) % [place] % (Auto) (2-11) % Eos % (Auto) (0-4) % Baso % (Auto) (0-2) % Lymph # (Auto) (1.2-4.9) X10*3/uL [place] # (Auto) (0.1-1.2) X10*3/uL Eos # (Auto) (0.0-0.4) X10*3/uL Baso # (Auto) (0.0-0.2) X10*3/uL Abs Immat Gran (auto) (0.00-0.03) X10*3/uL Absolute Neuts (auto) (2.0-8.3) x10*3/uL Absolute Nucleated RBC (0.0-0.012) X10*3/uL Nucleated RBC % (auto) (0.0-0.2) /100WBC Smear Tech's Comments Sodium (135-145) mmol/L Potassium (3.3-5.1) mmol/L Chloride (96-108) mmol/L Carbon Dioxide (22-29) mmol/L Anion Gap (12-20) BUN (9-16) mg/dL Creatinine (0.5-1.4) mg/dL Estim Creat Clear Calc Estimated GFR Random Glucose (60-115) mg/dL Calcium (8.4-10.2) mg/dL Magnesium (1.6-2.6) mg/dL Total Bilirubin (0.0-1.0) mg/dL AST (5-31) U/L ALT (0-31) U/L Alkaline Phosphatase (39-117) U/L Total Protein (6.5-8.0) g/dL Albumin (3.5-5.0) g/dL Urine Color Yellow Urine Appearance Hazy Urine pH 6.0 (5.0-8.0) Ur Specific [place] 1.015 (1.005-1.025) Urine Protein Negative (Neg-Trace) mg/dL Urine Glucose (UA) Negative (Negative) mg/dL Urine Ketones Trace (Negative) mg/dL Urine Blood Trace (Negative) Urine Nitrite Negative (Negative) Ur Leukocyte Esterase Negative (Negative) Urine RBC 3-5 H (0-2) /HPF Urine WBC 0-5 (0-5) /HPF Ur Squamous Epith Cells 3-5 (0-2) /HPF Ur Renal Epithelial Cell Present Urine Bacteria None Seen (None Seen) Hyaline Casts 0-2 (0-2) /LPF Urine Yeast Present Urine Opiates Screen POSITIVE H (Not Detect) Urine Fentanyl Screen POSITIVE H (Not Detect) Ur Barbiturates Screen Not Detected (Not Detect) Ur Phencyclidine Scrn Not Detected (Not Detect) Ur Amphetamines Screen Not Detected (Not Detect) U Benzodiazepines Scrn Not Detected (Not Detect) Urine Cocaine Screen Not Detected (Not Detect) U Marijuana (THC) Screen Not Detected (Not Detect) COVID-19 ([facility]A) Negative (Negative) COVID-19 Clin Com See Note 07/11/22 07/11/22 Range/Units 14:48 14:48 WBC 11.6 H (4.8-10.8) X10*3/uL RBC 4.51 (4.20-5.50) X10*6/uL Hgb 13.3 (12.0-16.0) g/dl Hct 38.6 (37.0-47.0) % MCV 85.6 (80.0-98.0) fL MCH 29.5 (27.0-33.0) pg MCHC 34.5 (31.0-35.0) g/dl RDW 12.9 (11.0-16.0) % Plt Count 256 (160-400) X10*3/uL MPV 9.9 (9.4-12.3) fL Immature Gran % (Auto) 0.3 (0.0-0.4) % Neut % (Auto) 95.4 H (45-73) % Lymph % (Auto) 2.8 L (20-40) % [place] % (Auto) 1.2 L (2-11) % Eos % (Auto) 0.0 (0-4) % Baso % (Auto) 0.3 (0-2) % Lymph # (Auto) 0.3 L (1.2-4.9) X10*3/uL [place] # (Auto) 0.1 (0.1-1.2) X10*3/uL Eos # (Auto) 0.0 (0.0-0.4) X10*3/uL Baso # (Auto) 0.0 (0.0-0.2) X10*3/uL Abs Immat Gran (auto) 0.03 (0.00-0.03) X10*3/uL Absolute Neuts (auto) 11.1 H (2.0-8.3) x10*3/uL Absolute Nucleated RBC 0.000 (0.0-0.012) X10*3/uL Nucleated RBC % (auto) 0.0 (0.0-0.2) /100WBC Smear Tech's Comments VERIFIED Sodium 136 (135-145) mmol/L Potassium 3.6 (3.3-5.1) mmol/L Chloride 97 (96-108) mmol/L Carbon Dioxide 27 (22-29) mmol/L Anion Gap 16 (12-20) BUN 11 (9-16) mg/dL Creatinine 0.75 (0.5-1.4) mg/dL Estim Creat Clear Calc 40.3 Estimated GFR > 60 Random Glucose 133 H (60-115) mg/dL Calcium 9.5 (8.4-10.2) mg/dL Magnesium 1.8 (1.6-2.6) mg/dL Total Bilirubin 0.7 (0.0-1.0) mg/dL AST 13 (5-31) U/L ALT 9 (0-31) U/L Alkaline Phosphatase 81 (39-117) U/L Total Protein 6.9 D (6.5-8.0) g/dL Albumin 4.4 D (3.5-5.0) g/dL Urine Color Urine Appearance Urine pH (5.0-8.0) Ur Specific [place] (1.005-1.025) Urine Protein (Neg-Trace) mg/dL Urine Glucose (UA) (Negative) mg/dL Urine Ketones (Negative) mg/dL Urine Blood (Negative) Urine Nitrite (Negative) Ur Leukocyte Esterase (Negative) Urine RBC (0-2) /HPF Urine WBC (0-5) /HPF Ur Squamous Epith Cells (0-2) /HPF Ur Renal Epithelial Cell Urine Bacteria (None Seen) Hyaline Casts (0-2) /LPF Urine Yeast Urine Opiates Screen (Not Detect) Urine Fentanyl Screen (Not Detect) Ur Barbiturates Screen (Not Detect) Ur Phencyclidine Scrn (Not Detect) Ur Amphetamines Screen (Not Detect) U Benzodiazepines Scrn (Not Detect) Urine Cocaine Screen (Not Detect) U Marijuana (THC) Screen (Not Detect) COVID-19 ([facility]A) (Negative) COVID-19 Clin Com <Alem Sol MD - Last Filed: 07/12/22 05:04> Discharge Plan Discharge Clinical Impression: Heroin addiction, Anxiety, Chronic back pain, Depression, Fentanyl use disorder, severe <BRIANNA Poole - Last Filed: 07/11/22 19:25> Patient Disposition: Still a Patient <BRIANNA Poole - Last Filed: 07/11/22 19:25> Prescriptions: No Action albuterol sulfate [Ventolin HFA] 90 mcg/actuation HFA aerosol inhaler 1 inh inhalation QID PRN (Reason: shortness of breath or wheezing) Qty: 6.7 0RF hydroxyzine HCl 25 mg tablet 25 mg PO TID PRN (Reason: anxiety) Qty: 20 0RF fluoxetine 40 mg capsule 1 cap PO DAILY clonazepam 0.5 mg tablet 1 tab PO BEDTIME PRN (Reason: Anxiety) clonazepam 1 mg tablet 1 tab PO QAM PRN (Reason: Anxiety) fluoxetine 10 mg capsule 1 cap PO DAILY Spiriva Respimat 2.5 mcg/actuation mist 2 puff inhalation DAILY <BRIANNA Poole - Last Filed: 07/11/22 19:25>
[2022-07-11 12:00] LABS: Appearance Urine Hazy; Color Urine Yellow; Glucose Urine UA Negative (Negative); Leukocyte Esterase Urine Negative (Negative); Nitrite Urine Negative (Negative); Specific Gravity - Urine 1.015 (1.005-1.025); Urine Blood Trace (Negative); Urine Ketones Trace mg/dL (Negative); Urine Protein Negative (Neg-Trace)
[2022-07-11] MEDS: NaPROXEN 500 MG TABLET PO (12:01)
[2022-07-11] MEDS: hydrOXYzine HCL 25 MG TABLET PO (12:01)
[2022-07-11] MEDS: dexAMETHasone 2 MG TABLET 10 MG PO (12:03)
[2022-07-11 12:12] LABS: Bacteria Urine None Seen (None Seen); Renal Epithelial Cells Urine Present; WBC Urine 0-5 /HPF (0-5)
[2022-07-11 12:21] LABS: Amphetamine Screen Urine Not Detected (Not Detect); Barbiturates, Urine Not Detected (Not Detect); Benzodiazepines Screen Urine Not Detected (Not Detect); Cannabinoid Screen Urine Not Detected (Not Detect); Cocaine Screen Urine Not Detected (Not Detect); Fentanyl, urine POSITIVE (Not Detect); Opiate Screen Urine POSITIVE (Not Detect); Phencyclidine Screen Urine Not Detected (Not Detect)
[2022-07-11 12:28] LABS: Hyaline Casts Urine 0-2 /LPF (0-2)
--- NOTE | 2022-07-11 13:14 | MHC.CARE ---
Care Team responded to consultation regarding increased anxiety/depression and self medicating by using heroin due to pack pain. Pt reports she lives with her son Raffaele, who help her with cleaning and prepping her meals. Pt mentioned she needs help with personal care. This senior grant writer spoke about [facility], however, pt refused [facility] services and stated she would rather be placed inpatient. Pt states she has a [facility] therapist and psychiatrist and recently met with psychiatrist Dr. Cross via telehealth. Pt reports self medicating with Heroin due to back pain. This senior grant writer provided comprehensive care center contact information. PT denied SI/HI/AVH.
--- NOTE | 2022-07-11 13:21 | MHC.CM.ED ---
Received case management consult from [facility]. Patient returned to ER today with opiate abuse and chronic pain. Care team consult was also ordered. Will wait until cleared by Care team before meeting with patient. If short term rehab is needed for patient, will be difficult to place d/t present substance abuse. Continue to monitor for d/c needs.
[2022-07-11 14:17] VITALS: BP 157/101; PULSE 98; RESP 22; TEMP 36.4; O2SAT 98
[2022-07-11] MEDS: Cyclobenzaprine HCl 10 MG TABLET PO ×2 (14:37→20:01)
[2022-07-11] MEDS: Albuterol Sulfate 90 MCG 8 GM INHALER 2 PUFF INHALE (14:37)
[2022-07-11 14:42] LABS: COVID-19 Test Negative (Negative); IDNOW Serial# 16C4AD1C
[2022-07-11 14:58] LABS: Basophils Percent Auto 0.3 % (0-2); Hematocrit 38.6 % (37.0-47.0); Hemoglobin 13.3 g/dl (12.0-16.0); Imm Gran Abs Auto 0.03 X10*3/uL (0.00-0.03); Imm Gran Pct Auto 0.3 % (0.0-0.4); Lymphocytes Absolute Auto 0.3 X10*3/uL (1.2-4.9); Lymphocytes Percent Auto 2.8 % (20-40); MANUAL DIFF FLAG SCAN; Mean Corpuscular HGB Conc 34.5 g/dl (31.0-35.0); Mean Corpuscular Hemoglobin 29.5 pg (27.0-33.0); Mean Corpuscular Volume 85.6 fL (80.0-98.0); Mean Platelet Volume 9.9 fL (9.4-12.3); Monocytes Absolute Auto 0.1 X10*3/uL (0.1-1.2); Monocytes Percent Auto 1.2 % (2-11); Neutrophils Absolute Auto 11.1 x10*3/uL (2.0-8.3); Neutrophils Percent Auto 95.4 % (45-73); Platelet Count 256 X10*3/uL (160-400); Red Blood Count 4.51 X10*6/uL (4.20-5.50); Red Cell Distribution Width 12.9 % (11.0-16.0); SCAN SMEAR FLAG 1; White Blood Count 11.6 X10*3/uL (4.8-10.8)
--- NOTE | 2022-07-11 15:04 | MHC.CARE ---
Care Team referred Pt to [facility].
[2022-07-11 15:09] LABS: Alanine Aminotransferase 9 U/L (0-31); Albumin Level 4.4 g/dL (3.5-5.0); Alkaline Phosphatase 81 U/L (39-117); Anion Gap 16 (12-20); Aspartate Amino Transferase 13 U/L (5-31); Bilirubin Total 0.7 mg/dL (0.0-1.0); Blood Urea Nitrogen 11 mg/dL (9-16); Calcium 9.5 mg/dL (8.4-10.2); Carbon Dioxide 27 mmol/L (22-29); Chloride 97 mmol/L (96-108); Creatinine Clr Calc Pharmacy 40.3; Estimated Glomerular Filt Rate > 60; Glucose Random 133 mg/dL (60-115); Magnesium 1.8 mg/dL (1.6-2.6); Potassium 3.6 mmol/L (3.3-5.1); Sodium 136 mmol/L (135-145); Total Protein 6.9 g/dL (6.5-8.0)
[2022-07-11 15:24] LABS: SLIDE REVIEW VERIFIED
--- NOTE | 2022-07-11 17:08 | MHC.CARE ---
Pt was referred to [facility] for a crisis evaluation however there is no clinician available to meet with the pt this evening. CARE team met with pt to assess level of risk for harm to self or others. Pt is a 66 year old [place] Citizen speaking, female who arrived to the ED endorsing chronic back pain that she manages through opiate use. Pt was here yesterday for the same and was seen by case management and PT and has had numerous ED visits over the past few weeks. Pt was seen in the pod room 1. She was alert and oriented, frail and sickly in appearance, and her hygiene and grooming were slightly disheveled. She presented with fair mood and congruent affect and was groaning and panting while she was trying to move any part of her body. She reported that her back pain is the reason why she uses opiates and that she is hoping to get treatment to manage the pain without drug use. She denied SI/HI/AVH and denied having any safety concerns in her home. She reported that she doesn't feel that she's able to care for herself in the home at this time and is not interested in home-based supports. Pt has expressed interest in staying in the hospital until her pain is better managed but it was explained that wouldn't be an option. Pt is agreeable to speaking with CM and PT again re: placement. ED provider was updated re: risk assessment. There is no acute risks at this time related to pt's mental health or substance use. Pt is not forthcoming about the extent of her use and does not appear to be in withdrawal at this time.
[2022-07-11 18:40] VITALS: BP 154/77; PULSE 84; RESP 20; TEMP 36.8; O2SAT 97
[2022-07-11] MEDS: FLUoxetine HCl 20 MG CAPSULE 40 MG PO (19:56)
[2022-07-11] MEDS: hydrOXYzine HCL 50 MG TABLET PO (19:56)
[2022-07-11] MEDS: chlordiazePOXIDE HCl 25 MG CAPSULE PO (19:59)
[2022-07-11] MEDS: clonazePAM 1 MG TABLET PO (23:04)
[2022-07-12 02:38] VITALS: BP 143/83; PULSE 84; RESP 16; TEMP 36.6; O2SAT 94
--- NOTE | 2022-07-12 07:20 | PC.NURSE ---
Patient slept through the night, no distress observed/reported, patient is a case management case, no update on placement, behavior appropriate, VSS, medication compliant, will continue to monitor.
--- NOTE | 2022-07-12 07:28 | PC.NURSE ---
Report received, pt currently sleeping, in no apaprent distress. PT is a case management bedsearch
[2022-07-12] MEDS: FLUoxetine HCl 20 MG CAPSULE 40 MG PO (09:36)
[2022-07-12] MEDS: hydrOXYzine HCL 50 MG TABLET PO ×3 (09:36→17:44)
--- NOTE | 2022-07-12 09:50 | MHC.RECOVRN ---
Met with pt in [facility] to discuss substance use. Pt laying in bed, awake, alert, soft spoken but easily engages in conversation. Pt reports using heroin, 1 bag IN approx 3x weekly. Last use 07/08. Denies other substances. Pt reports heroin use has helped with back pain and leads to continued use. Pt is currently experiencing cravings. No withdrawal symptoms present. Discussed MOUD with pt, pt interested in Suboxone. Pt denies ever being prescribed Suboxone or methadone. If initated, pt would be able to link with either [facility] or [facility]. [facility] is closer to pts home so will probably be the best choice, pt agreeable. Pt educated regarding precipitated withdrawal. Denies questions at this time. Disucssed with Julieta Monroe APRN as well as Dr. Hunter. Plan for pt to receive 2/0.5 mg Suboxone now.
[2022-07-12] MEDS: Buprenorphine/Naloxone 2/0.5mg FILM 1 FILM SUBLINGUAL (10:24)
--- NOTE | 2022-07-12 10:39 | MHC.CM.ED ---
Patient remains in ER. Patient cleared by Care team. Patient seen by Kemi Recovery Nurse. Patient will be started on Suboxone. Per PT eval on 07/10, short term rehab is recommended. Patient is not vaccinated against Covid. Due to substance abuse and not being vaccinated, placement will be difficult. Referral broadcasted within 20 miles of patient's residence. Patient will need a [facility] PASRR Level 2 due to substance abuse. T/W submitted Level 1 to [facility] PASRR. Continue to monitor for d/c needs.
--- NOTE | 2022-07-12 12:45 | MHC.CM.ED ---
Addendum entered by Bonnie Sotomayor 07/12/22 13:58: Patient is agreeable to rehab at [facility]. Waiting for [facility] PASRR Level 2. Facility will also need a 30 day prescription for Suboxone. Kemi, trailer tank truck driver will let Julieta know. Original Note: [facility] is able to offer a bed with a 30 day prescription for Suboxone and [facility] PASRR level 2. Met with patient in regards to discharge planning. Patient is unsure if she wants to go to [facility] for rehab. T/W explained patient will either need to go to [facility] or discharge home. Patient is requesting 1 hour to decide. T/W will meet back with patient in 1 hour. Continue to monitor for d/c needs.
[2022-07-12] MEDS: Cyclobenzaprine HCl 10 MG TABLET PO (13:51)
[2022-07-12] MEDS: clonazePAM 1 MG TABLET PO (13:52)
[2022-07-12 14:18] VITALS: BP 146/83; PULSE 87; RESP 16; TEMP 36.6; O2SAT 95
[2022-07-12 15:01] VITALS: BP 146/83; PULSE 87; O2SAT 95
--- NOTE | 2022-07-12 15:11 | PC.NURSE ---
Pt seen this date for individual OT tx session. Upon approach pt presents with blunted affect as well as depressed mood however agreeable to speak with this remote mortgage underwriter. Pt some what tangential with apparent decreased ability to focus, disorganized speech, and difficulty staying on topic during interview. Pt validates feelings of sadness and depression stating I don't want to live like this anymore however no SI expressed during conversation. Pt is receptive to sensory tool as well as independent reading provided with good oracle programmer by pt noted. .
--- NOTE | 2022-07-12 15:56 | HO.ADDICT_ITS ---
History of Present Illness Date of Service: 07/12/2022 Chief Complaint: BACK PAIN,SEEN RECENTLY FOR SAME Reason for Consult: ?OUD Discussed with referring provider: Yes Sources of Information: patient interviewed and chart reviewed HPI Narrative: Patient is a 66 year old female who has presented to [facility] ED wo day sin a row c/o back pain and requesting admission to a rehab facility. It was noted that her UDS +fentanyl and she was adminstered 2mg suboxone this morning with minimal effect. Request to see patient for additional dosing and follow up. Patient seen on room 1. She was awake, alert, and engaged in interview. Laying in bed, on her side, with covers pulled up to her neck. Soft spoken. Patient reports using 1-2 bags of heroin once per day to every other day to address her back pain. She had been using more infrequently over the last several months ---[facility] records show +opiates March 2021, +opi and fentanyl January, March, May and this visit--then she states over the last month or more it increased to daily or every other day. She reports using intranasal. She denies any overdose. Denies any use of pressed pills. Reviewed current sx, including back pain, chills, nausea, and anxiety. Explored with patient possibility that these may be due to or worsened by opioid wi thdrawal. Patient open to this possibility. Expressing some shame over heroin use. This machine sign writer provided education around dependance and subsequent withdrawal sx. Agreeable to additional dose. Awaiting admission and transfer to [facility] [[email or web address] Review of Systems Constitutional: Reports as per HPI, Reports body ache(s), Reports difficulty sleeping, Reports lethargy and Reports malaise Diagnostics Vital Signs (24Hr): Vital Signs - 24 hr 07/11/22 18:40 07/12/22 02:38 07/12/22 14:18 Temperature 98.2 F 97.8 F 97.9 F Pulse Rate 84 84 87 Respiratory Rate 20 16 16 Blood Pressure 154/77 H 143/83 H 146/83 H Pulse Oximetry 97 94 95 Oxygen Delivery Method Room Air Room Air Room Air 07/12/22 15:01 Temperature Pulse Rate 87 Respiratory Rate Blood Pressure 146/83 H Pulse Oximetry 95 Oxygen Delivery Method BMI result Body Mass Index 13.4 Labs Results: 07/11/22 14:48 07/11/22 14:48 Labs: Laboratory Results - last 48 hr 07/11/22 07/11/22 07/11/22 11:50 11:50 14:22 WBC RBC Hgb Hct MCV MCH MCHC RDW Plt Count MPV Immature Gran % (Auto) Neut % (Auto) Lymph % (Auto) Stewart % (Auto) Eos % (Auto) Baso % (Auto) Lymph # (Auto) Stewart # (Auto) Eos # (Auto) Baso # (Auto) Abs Immat Gran (auto) Absolute Neuts (auto) Absolute Nucleated RBC Nucleated RBC % (auto) Smear Tech's Comments Sodium Potassium Chloride Carbon Dioxide Anion Gap BUN Creatinine Estim Creat Clear Calc Estimated GFR Random Glucose Calcium Magnesium Total Bilirubin AST ALT Alkaline Phosphatase Total Protein Albumin Urine Color Yellow Urine Appearance Hazy Urine pH 6.0 Ur Specific [place] 1.015 Urine Protein Negative Urine Glucose (UA) Negative Urine Ketones Trace Urine Blood Trace Urine Nitrite Negative Ur Leukocyte Esterase Negative Urine RBC 3-5 H Urine WBC 0-5 Ur Squamous Epith Cells 3-5 Ur Renal Epithelial Cell Present Urine Bacteria None Seen Hyaline Casts 0-2 Urine Yeast Present Urine Opiates Screen POSITIVE H Urine Fentanyl Screen POSITIVE H Ur Barbiturates Screen Not Detected Ur Phencyclidine Scrn Not Detected Ur Amphetamines Screen Not Detected U Benzodiazepines Scrn Not Detected Urine Cocaine Screen Not Detected U Marijuana (THC) Screen Not Detected COVID-19 ([facility]) Negative COVID-19 Clin Com See Note 07/11/22 07/11/22 14:48 14:48 WBC 11.6 H RBC 4.51 Hgb 13.3 Hct 38.6 MCV 85.6 MCH 29.5 MCHC 34.5 RDW 12.9 Plt Count 256 MPV 9.9 Immature Gran % (Auto) 0.3 Neut % (Auto) 95.4 H Lymph % (Auto) 2.8 L Stewart % (Auto) 1.2 L Eos % (Auto) 0.0 Baso % (Auto) 0.3 Lymph # (Auto) 0.3 L Stewart # (Auto) 0.1 Eos # (Auto) 0.0 Baso # (Auto) 0.0 Abs Immat Gran (auto) 0.03 Absolute Neuts (auto) 11.1 H Absolute Nucleated RBC 0.000 Nucleated RBC % (auto) 0.0 Smear Tech's Comments VERIFIED Sodium 136 Potassium 3.6 Chloride 97 Carbon Dioxide 27 Anion Gap 16 BUN 11 Creatinine 0.75 Estim Creat Clear Calc 40.3 Estimated GFR > 60 Random Glucose 133 H Calcium 9.5 Magnesium 1.8 Total Bilirubin 0.7 AST 13 ALT 9 Alkaline Phosphatase 81 Total Protein 6.9 D Albumin 4.4 D Urine Color Urine Appearance Urine pH Ur Specific [place] Urine Protein Urine Glucose (UA) Urine Ketones Urine Blood Urine Nitrite Ur Leukocyte Esterase Urine RBC Urine WBC Ur Squamous Epith Cells Ur Renal Epithelial Cell Urine Bacteria Hyaline Casts Urine Yeast Urine Opiates Screen Urine Fentanyl Screen Ur Barbiturates Screen Ur Phencyclidine Scrn Ur Amphetamines Screen U Benzodiazepines Scrn Urine Cocaine Screen U Marijuana (THC) Screen COVID-19 ([facility]) COVID-19 Clin Com Mental Status Exam Mental Status Exam Patient Appearance: Appropriate Level of Consciousness: Awake and Appropriate Patient Behavior: Guarded and Cooperative Mood Description: Blunted Affect Description: Blunted Judgement: Fair Medications Medications Current Medications Albuterol Sulfate (Albuterol Sulfate 90 Mcg 8 Gm Inhaler) 1 puff INHALE QID PRN PRN Reason: shortness of breath or wheezing Clonazepam (Clonazepam 0.5 Mg Tablet) 0.5 mg PO BEDTIME PRN PRN Reason: Anxiety Clonazepam (Clonazepam 1 Mg Tablet) 1 mg PO DAILY PRN PRN Reason: Anxiety Last Admin: 07/12/22 13:52 Dose: 1 mg Cyclobenzaprine HCl (Cyclobenzaprine Hcl 10 Mg Tablet) 10 mg PO Q8H [facility] Last Admin: 07/12/22 13:51 Dose: 10 mg Fluoxetine HCl (Fluoxetine Hcl 20 Mg Capsule) 40 mg PO DAILY [facility] Last Admin: 07/12/22 09:36 Dose: 40 mg Hydroxyzine HCl (Hydroxyzine Hcl 50 Mg Tablet) 50 mg PO QID [facility] Last Admin: 07/12/22 13:51 Dose: 50 mg Hydroxyzine HCl (Hydroxyzine Hcl 25 Mg Tablet) 25 mg PO TID PRN PRN Reason: anxiety Tiotropium [place] (Tiotropium [place] 18 Mcg Cap.W.Dev) 2 puff INHALE RDAILY [facility] Last Admin: 07/12/22 09:38 Dose: Not Given Allergies Allergies Allergy/AdvReac Type Severity Reaction Status Date / Time No Known Allergies Allergy Verified 02/06/22 11:39 [No Known Allergies*] Assessment & Plan Assessment & Plan (1) Opioid use disorder: Status: Acute Code(s): F11.90 - Opioid use, unspecified, uncomplicated Assessment and Plan: * additional 4mg dose suboxone now (total of 6mg today) * plan for 4mg in AM and re-eval effectiveness of dosing * unclear how forthcoming patient has been regarding use/amount of use so may be a bit challenging to get to a therapeutic dose at first. Prefer to slowly increase dosing * follow up in AM I spent __45____ minutes with the patient and/or on the patient floor today, greater than?50% of which was spent counseling/coordinating care. PMFSH Past Medical History Medical History Anxiety COPD (chronic obstructive pulmonary disease) Endometriosis Surgical History Surgical History H/O: hysterectomy Social History Social History Alcohol intake: never Patient Tobacco Use Status: Former Tobacco user Substance Use Type: Opiates Advance Directives: Yes Advance Directives on File: Yes Advance Directives Date on File: 04/01/22
[2022-07-12] MEDS: Buprenorphine/Naloxone 4/1 mg FILM 1 FILM SUBLINGUAL (16:06)
--- NOTE | 2022-07-13 06:10 | PC.NURSE ---
Patient slept through whole evening and night, no complain of pain, no other distress observed/reported,medication compliant, behavior appropriate and non concerning, case management is currently working on the placement, patient may go to rehab facility in [facility], will continue to monitor.
[2022-07-13 06:35] VITALS: BP 127/87; PULSE 81; RESP 16; TEMP 36.3; O2SAT 94
--- NOTE | 2022-07-13 07:25 | PC.NURSE ---
patient appears to remain asleep at present respirations are evn and unlabored patient appears in no distress
[2022-07-13 08:46] VITALS: BP 131/78; PULSE 96; RESP 13; TEMP 36.7; O2SAT 95
[2022-07-13] MEDS: Ondansetron ODT 4 MG TAB.RAPDIS TRANSLINGU (08:57)
[2022-07-13] MEDS: hydrOXYzine HCL 50 MG TABLET PO (08:57)
[2022-07-13] MEDS: FLUoxetine HCl 20 MG CAPSULE 40 MG PO (08:57)
[2022-07-13] MEDS: Buprenorphine/Naloxone 4/1 mg FILM 1 FILM SUBLINGUAL (08:57)
--- NOTE | 2022-07-13 09:22 | MHC.CM.ED ---
Patient remains in ER. [facility] PASRR Level 2 obtained and uploaded to [facility]. Julieta Monroe aware Suboxone RX [facility] need [facility] in [place], [place]. Continue to monitor for d/c needs.
[2022-07-13] MEDS: Albuterol Sulfate 90 MCG 8 GM INHALER 1 PUFF INHALE (09:24)
[2022-07-13] MEDS: clonazePAM 1 MG TABLET PO (10:07)
--- NOTE | 2022-07-13 10:46 | MHC.RECOVRN ---
Met with pt in [facility] to follow up regarding Suboxone initiation. Pt in bed, awake, alert, easily engaged in conversation but grimaces throughout. Pt reports not feeling relief after Suboxone administration, continues to report body aches. Also reports chills, mild restlessness, anxiety, denies GI upset and is not yawning. Pt would like to continue Suboxone titration. Discussed with Julieta Monroe APRN.
--- NOTE | 2022-07-13 10:55 | MHC.RECOVRN ---
Pt has telehealth follow up with Julieta Monroe APRN ([facility] [phone]) on 07/20 at 0900.
--- NOTE | 2022-07-13 12:30 | MHC.CM.PN ---
[facility] DISCHAR[facility], [facility] CONFIRMED THEY RECEIVED SUBOXONE SCRIPT, [facility] ON SITE NOW AND WILL TRANSPORT.
--- NOTE | 2022-07-13 13:17 | PC.NURSE ---
nurse to nurse done. ems left glasses unfortunately will ask care team to assist and call son to get glasses
== END 2022-07-13 13:58 ==
PROVIDERS: Physician Assistant Medical; Emergency Provider Emergency Medicine; PCP Internal Medicine
DX: F11.24 Opioid dependence with opioid-induced mood disorder (principal); F41.1 Generalized anxiety disorder; F43.0 Acute stress reaction; M54.50 Low back pain, unspecified; M54.2 Cervicalgia; R26.2 Difficulty in walking, not elsewhere classified; J44.9 Chronic obstructive pulmonary disease, unspecified; Z20.822 Contact with and (suspected) exposure to COVID-19; Z79.899 Other long term (current) drug therapy; Z87.891 Personal history of nicotine dependence
CPT/HCPCS: 36415; 80053; 80307; 81001; 81003; 83735; 85025; 87635; 97162; 99284; 99285; J8540